=== PATIENT | female | born 1960 | race Caucasian/White ===

== ENCOUNTER 2017-10-26 08:51 | Outpatient (POV) | payer MEDICARE, MEDICAID, SELFPAY | END 2017-10-26 14:10 | disposition home or self-care (01) | PROVIDERS: Family Provider Internal Medicine Adolescent Medicine; Referring Provider Internal Medicine; Visit Provider Podiatrist | DX: M25.572 Pain in left ankle and joints of left foot (principal); M25.571 Pain in right ankle and joints of right foot; E11.42 Type 2 diabetes mellitus with diabetic polyneuropathy; B35.1 Tinea unguium; L60.0 Ingrowing nail | CPT/HCPCS: 99213; G0127; 36415; 80061; 80076 ==

== ENCOUNTER → 2018-01-12 10:12 | Outpatient (POV) | payer MEDICARE, MEDICAID, SELFPAY | PROVIDERS: Visit Provider Podiatrist | DX: Z00.00 Encounter for general adult medical examination without abnormal findings (principal) ==

== ENCOUNTER → 2018-01-26 12:55 | Outpatient (POV) | payer MEDICARE, MEDICAID, SELFPAY | PROVIDERS: Family Provider Internal Medicine Adolescent Medicine; Visit Provider Podiatrist | DX: Z00.00 Encounter for general adult medical examination without abnormal findings (principal) ==

== ENCOUNTER → 2018-03-07 11:20 | Outpatient (CLI) | payer MEDICARE, MEDICAID, SELFPAY ==
[2018-03-07 12:02] LABS: Basophils # 0.1 K/mm3 (0-0.2); Basophils % 0.5 % (0.1-2.0); Eosinophils # 0.2 K/mm3 (0.0-0.4); Eosinophils % 2.3 % (0.1-12.0); Hematocrit 41.8 % (37.0-47.0); Hemoglobin 14.1 g/dL (12.2-16.2); Lymphocytes # 3.7 K/mm3 (0.7-4.5); Lymphocytes % 34.9 K/mm3 (10-50); Mean Corpuscular HGB Conc 33.8 g/dL (31.8-35.4); Mean Corpuscular Hemoglobin 28.5 pg (27.0-31.2); Mean Corpuscular Volume 84.5 fl (81-99); Mean Platelet Volume 7.4 fl (7.4-10.4); Monocytes # 0.5 K/mm3 (0.1-1.0); Monocytes % 4.8 % (1.7-9.3); Neutrophils # 6.2 K/mm3 (1.8-7.8); Neutrophils % 57.5 % (37.0-80.0); Platelet Count 402 K/mm3 (142-424); Red Blood Count 4.94 M/mm3 (4.20-5.40); Red Cell Distribution Width 14.1 % (11.5-17.5); White Blood Count 10.7 K/mm3 (4.8-10.8)
[2018-03-07 12:18] LABS: Hemoglobin A1C 6.4 % (0.0-7.0)
[2018-03-07 12:44] LABS: Alanine Aminotransferase 32 U/L (12-78); Albumin Level 3.9 gm/dL (3.4-5.0); Alkaline Phosphatase 109 U/L (46-116); Anion Gap 18.4 mEq/L (5-15); Aspartate Amino Transferase 23 U/L (15-37); Bilirubin,Total 0.5 mg/dL (0.2-1.0); Blood Urea Nitrogen 18 mg/dL (7-18); Calcium 9.9 mg/dL (8.5-10.1); Carbon Dioxide 24 mmol/L (21.0-32.0); Chloride 103 mmol/L (98-107); Chol/HDL Ratio 4.7 (1-3.5); Cholesterol 108 mg/dL (140-200); Creatinine,Serum 0.88 mg/dL (0.55-1.02); Estimated Glomerular Filt Rate 66 ml/min (>60); Free Thyroxine Index 3.4 ug/dL (5.93-13.13); GFR (African American) 80 ML/MIN (>60); Globulin 3.9 gm/dl (1.3-3.2); Glucose 119 mg/dL (74-106); HDL Cholesterol 23 mg/dL (29-89); LDL Cholesterol 46 mg/dL (0-130); Potassium 4.4 mmoL/L (3.5-5.1); Sodium 141 mmol/L (136-145); T4 (Thyroxine) 10.6 ug/dl (4.7-13.3); Thyroid Stimulating Hormone 2.17 uIU/ml (0.358-3.740); Total Protein,Serum 7.8 gm/dL (6.4-8.2); Triglycerides 196 mg/dL (30-200); Triiodothryronine (T3) Uptake 32 % (31-39); VLDL Cholesterol 39 mg/dL (0-40)
[2018-03-08 14:49] LABS: Vitamin B12 409 pg/mL (232-1245)
== END ==
PROVIDERS: Visit Provider Internal Medicine Adolescent Medicine
DX: E11.42 Type 2 diabetes mellitus with diabetic polyneuropathy (principal)
CPT/HCPCS: 36415; 80053; 80061; 82607; 83036; 84436; 84443; 84479; 85025

== ENCOUNTER → 2018-04-05 08:33 | Outpatient (CLI) | payer MEDICARE, MEDICAID, SELFPAY ==
--- NOTE | 2018-04-05 | XR_ITS ---
XR DEXA axial skeleton HISTORY: ITS.REASON: ASYMPTOMATIC MENOPAUSE ORDERING PHYSICIAN: Rubio Diaz MD PATIENT AGE: 57 years COMPARISON: None FINDINGS: The BMD measured at the AP Spine L1-L4 is 1.010 g/cm squared with a T score of -1.4. This is considered Osteopenic according to the World Health Organization criteria. Fracture risk is Moderate. Treatment is advised. The mean density of the hips has a T score of -0.9 IMPRESSION: Osteopenia with moderate fracture risk. Recommended. Recommend follow-up exam March 2020
== END ==
PROVIDERS: Family Provider Internal Medicine Adolescent Medicine; PCP Internal Medicine Adolescent Medicine; Visit Provider Internal Medicine Adolescent Medicine
DX: Z78.0 Asymptomatic menopausal state (principal)
CPT/HCPCS: 77080

== ENCOUNTER → 2018-05-01 10:13 | Outpatient (POV) | payer MEDICARE, MEDICAID, SELFPAY ==
[2018-05-01 10:17] VITALS: BP 133/83; PULSE 84; RESP 18; O2SAT 96
--- NOTE | 2018-05-01 11:01 | HMH.PMCON ---
Assessment and Plan (1) Neuropathy Current visit: Yes Status: Chronic Category: Medical Code(s): G62.9 - Polyneuropathy, unspecified - Assessment and plan all Dx Assessment and Plan for all problems:: I gave the patient information on neuro stimulation. I believe that this will be beneficial given her diagnosis and symptomology. Patient is going to review the information. I discussed trialing and implantation process with the patient. We also discussed realistic goal setting. Patient will give us a call if she would like to proceed with this therapy. This note was dictated using voice recognition software and may contain errors or omissions HPI - Data of Consult Consult date: 05/01/18 Requesting Physician: Alyssia Nichols APRN Primary Care Provider: Rubio Diaz MD Family Provider: Rubio Diaz MD - Consult Narrative Reason for consult: Bilateral foot pain History of present illness: Ms. Sagastume is a 57 year old female presents for consultation in regards to her bilateral leg and foot pain. Patient has been diagnosed with diabetic neuropathy. Patient has tried multiple therapies such as Lyrica, gabapentin, compounding cream. Patient states she has had no relief with this. Patient states that her pain today is a 10 out of 10. Patient has been seen by Dr. Cleveland in the past and had injections however she states she got no relief from this. Patient states she has numbness and tingling in her bilateral feet. Patient states that she does do warm soaks which helps decrease the pain a little bit however any kind of walking or movement increases the pain. Patient also on clonazepam. Patient and I discussed neuro stimulation. CC: Alyssia Nichols APRN [facility] History I have reviewed the patient's past medical history: Yes Medical History: Reports:: Depression, Diabetes Mellitus Type 2, Hyperlipidemia, Hypertension Denies:: Cancer, Chronic Obstructive Pulmonary Disease (COPD), Diabetes Mellitus Type 1, MRSA Other Surgeries: Yes: Hysterectomy-Total, Other Amputation: No Fractures: No - *Social History Smoking Status: Current every day smoker Tobacco Type: cigarettes # Packs/Day (cigarettes): 1 Alcohol Intake: never Alcohol Intake Frequency:: other Occupational Status: disabled Housing: house - Psychiatric History Expresses thoughts of harming self/others: None Suicide Plan Description: No Plan Pschychiatric History:: Reports:: Depression *Family Hx:: Heart Attack, Coronary Artery Disease Review of Systems - Review of Systems ROS General: no recent weight change, no fever, no sleep disturbances Respiratory: no cough, no shortness of air, no recurring pulmonary infections Cardiovascular/Peripheral Vascular: No chest pain, No palpitations, no edema, no shortness of breath. Gastrointestinal: no incontinence, normal bowel movements reported Genitourinary: no incontinence Musculoskeletal: Bilateral foot pain Psychiatric: normal mood/ affect Neurological: [denies weakness in extremities], [denies balance issues] Meds Home Medications Medication Instructions Recorded Confirmed Type albuterol sulfate HFA 90 1 puff INHALATION Q4H g 11/27/17 04/15/18 History mcg/actuation aerosol inhaler clonazepam 0.5 mg tablet 0.5 mg PO BID tab 11/27/17 04/15/18 History duloxetine 20 mg capsule,delayed 20 mg PO QDAY cap 11/27/17 04/15/18 History release fluticasone furoate 27.5 1 spray INTRANASAL QDAY 11/27/17 04/15/18 History mcg/actuation nasal spray,suspension hydroxyzine pamoate 25 mg capsule 25 mg PO ONCE PRN cap 11/27/17 04/15/18 History metformin 500 mg tablet 500 mg PO BID 11/27/17 04/15/18 History omeprazole 20 mg capsule,delayed 20 mg PO QDAY 11/27/17 04/15/18 History release ropinirole 1 mg tablet 1 mg PO QHS tab 12/26/17 04/15/18 History gabapentin 300 mg capsule 400 mg PO TID cap 04/09/18 04/15/18 History Azithromycin [Z-Paul 250mg Tab] 250 mg PO UD DOSE PK 0
--- NOTE | 2018-05-01 11:09 | P.CONS_ITS ---
Assessment and Plan (1) Neuropathy Current visit: Yes Status: Chronic Category: Medical Code(s): G62.9 - Polyneuropathy, unspecified - Assessment and plan all Dx Assessment and Plan for all problems:: I gave the patient information on neuro stimulation. I believe that this will be beneficial given her diagnosis and symptomology. Patient is going to review the information. I discussed trialing and implantation process with the patient. We also discussed realistic goal setting. Patient will give us a call if she would like to proceed with this therapy. This note was dictated using voice recognition software and may contain errors or omissions HPI - Data of Consult Consult date: 05/01/18 Requesting Physician: Alyssia Nichols APRN Primary Care Provider: Rubio Diaz MD Family Provider: Rubio Diaz MD - Consult Narrative Reason for consult: Bilateral foot pain History of present illness: Ms. Sagastume is a 57 year old female presents for consultation in regards to her bilateral leg and foot pain. Patient has been diagnosed with diabetic neuropathy. Patient has tried multiple therapies such as Lyrica, gabapentin, compounding cream. Patient states she has had no relief with this. Patient states that her pain today is a 10 out of 10. Patient has been seen by Dr. Cleveland in the past and had injections however she states she got no relief from this. Patient states she has numbness and tingling in her bilateral feet. Patient states that she does do warm soaks which helps decrease the pain a little bit however any kind of walking or movement increases the pain. Patient also on clonazepam. Patient and I discussed neuro stimulation. CC: Alyssia Nichols APRN [facility] History I have reviewed the patient's past medical history: Yes Medical History: Reports:: Depression, Diabetes Mellitus Type 2, Hyperlipidemia , Hypertension Denies:: Cancer, Chronic Obstructive Pulmonary Disease (COPD), Diabetes Mellitus Type 1, MRSA Other Surgeries: Yes: Hysterectomy-Total, Other Amputation: No Fractures: No - *Social History Smoking Status: Current every day smoker Tobacco Type: cigarettes # Packs/Day (cigarettes): 1 Alcohol Intake: never Alcohol Intake Frequency:: other Occupational Status: disabled Housing: house - Psychiatric History Expresses thoughts of harming self/others: None Suicide Plan Description: No Plan Pschychiatric History:: Reports:: Depression *Family Hx:: Heart Attack, Coronary Artery Disease Review of Systems - Review of Systems ROS General: no recent weight change, no fever, no sleep disturbances Respiratory: no cough, no shortness of air, no recurring pulmonary infections Cardiovascular/Peripheral Vascular: No chest pain, No palpitations, no edema, no shortness of breath. Gastrointestinal: no incontinence, normal bowel movements reported Genitourinary: no incontinence Musculoskeletal: Bilateral foot pain Psychiatric: normal mood/ affect Neurological: [denies weakness in extremities], [denies balance issues] Meds Home Medications Medication Instructions Recorded Confirmed Type albuterol sulfate HFA 90 1 puff INHALATION Q4H g 11/27/17 04/15/18 History mcg/actuation aerosol inhaler clonazepam 0.5 mg tablet 0.5 mg PO BID tab 11/27/17 04/15/18 History duloxetine 20 mg capsule,delayed 20 mg PO QDAY cap 11/27/17 04/15/18 History release fluticasone furoate 27.5 1 spray INTRANASAL QDAY 11/27/17 04/15/18 Histo
== END ==
PROVIDERS: Family Provider Internal Medicine Adolescent Medicine; PCP Internal Medicine Adolescent Medicine; Visit Provider Clinical Nurse Specialist Family Health
DX: G62.9 Polyneuropathy, unspecified (principal)
CPT/HCPCS: 99202

== ENCOUNTER → 2018-08-20 09:49 | Outpatient (CLI) | payer MEDICARE, MEDICAID, SELFPAY ==
[2018-08-20 10:21] LABS: Basophils # 0.1 K/mm3 (0-0.2); Basophils % 0.8 % (0.1-2.0); Eosinophils # 0.3 K/mm3 (0.0-0.4); Eosinophils % 2.7 % (0.1-12.0); Hematocrit 39.8 % (37.0-47.0); Hemoglobin 13.1 g/dL (12.2-16.2); Lymphocytes # 4.2 K/mm3 (0.7-4.5); Lymphocytes % 38.7 K/mm3 (10-50); Mean Corpuscular HGB Conc 32.9 g/dL (31.8-35.4); Mean Corpuscular Hemoglobin 27.3 pg (27.0-31.2); Mean Platelet Volume 6.8 fl (7.4-10.4); Monocytes # 0.4 K/mm3 (0.1-1.0); Monocytes % 3.8 % (1.7-9.3); Neutrophils # 5.8 K/mm3 (1.8-7.8); Platelet Count 370 K/mm3 (142-424); Red Cell Distribution Width 15.3 % (11.5-17.5); White Blood Count 10.8 K/mm3 (4.8-10.8)
[2018-08-20 10:27] LABS: Hemoglobin A1C 6.3 % (0.0-7.0)
[2018-08-20 11:37] LABS: Alanine Aminotransferase 51 U/L (12-78); Albumin Level 3.2 gm/dL (3.4-5.0); Albumin/Globulin Ratio 0.9 (1.1-1.8); Alkaline Phosphatase 115 U/L (46-116); Anion Gap 12.6 mEq/L (5-15); Aspartate Amino Transferase 26 U/L (15-37); Bilirubin,Total 0.4 mg/dL (0.2-1.0); Blood Urea Nitrogen 13 mg/dL (7-18); Calcium 9.1 mg/dL (8.5-10.1); Carbon Dioxide 28 mmol/L (21.0-32.0); Chloride 102 mmol/L (98-107); Chol/HDL Ratio 4.1 (1-3.5); Cholesterol 136 mg/dL (140-200); Creatinine,Serum 0.88 mg/dL (0.55-1.02); Estimated Glomerular Filt Rate 66 ml/min (>60); Free Thyroxine Index 2.8 ug/dL (5.93-13.13); GFR (African American) 80 ML/MIN (>60); Globulin 3.6 gm/dl (1.3-3.2); Glucose 93 mg/dL (74-106); HDL Cholesterol 33 mg/dL (29-89); LDL Cholesterol 49 mg/dL (0-130); Potassium 4.6 mmoL/L (3.5-5.1); Sodium 138 mmol/L (136-145); T4 (Thyroxine) 7.9 ug/dl (4.7-13.3); Thyroid Stimulating Hormone 2.63 uIU/ml (0.358-3.740); Total Protein,Serum 6.8 gm/dL (6.4-8.2); Triglycerides 270 mg/dL (30-200); Triiodothryronine (T3) Uptake 35 % (31-39); VLDL Cholesterol 54 mg/dL (0-40)
[2018-08-21 08:52] LABS: Vitamin D 25 Hydroxy 19.2 ng/mL (30.0-100.0)
[2018-08-22 13:07] LABS: Vitamin B12 335 pg/mL (232-1245)
== END ==
PROVIDERS: PCP Internal Medicine Adolescent Medicine; Visit Provider Internal Medicine Adolescent Medicine
DX: E11.42 Type 2 diabetes mellitus with diabetic polyneuropathy (principal); E11.9 Type 2 diabetes mellitus without complications
CPT/HCPCS: 36415; 80053; 80061; 82607; 82652; 83036; 84436; 84443; 84479; 85025

== ENCOUNTER → 2018-09-07 08:43 | Outpatient (CLI) | payer MEDICARE, MEDICAID, SELFPAY ==
--- NOTE | 2018-09-07 08:48 | MM_ITS ---
MM Dig screening mamm BI w/CAD CAD Screening COMPARISON: Digital mammograms with CAD 07/25/2016 and 09/05/2017 INDICATION: There is no personal or family history of breast cancer. This been previous biopsy right breast for benign disease. TECHNIQUE: Standard CC and MLO images were obtained. R2 CAD reviewed. FINDINGS: Moderate scattered fibroglandular densities are seen throughout both breasts. There is a stable benign-appearing nodular density upper outer quadrant left breast. This was shown to be secondary to a cyst on ultrasound performed 09/22/2017. There is a small smoothly marginated benign-appearing density right breast which was seen previously. There are couple of benign-appearing calcifications in each breast. There are 2 biopsy clips right breast. There is no suspicious lesion and no suspicious microcalcifications. IMPRESSION: Stable exam with moderate diffuse breast density no suspicious lesion seen BI-RADS Category: 2 Benign Finding(s) RECOMMENDED FOLLOW-UP: 1YR - 1 YEAR FOLLOW-UP (A letter has been sent to the patient regarding results of the study.)
== END ==
PROVIDERS: PCP Internal Medicine Adolescent Medicine; Visit Provider Internal Medicine Adolescent Medicine
DX: Z12.31 Encounter for screening mammogram for malignant neoplasm of breast (principal)
CPT/HCPCS: 77067

== ENCOUNTER → 2018-10-20 10:28 | Outpatient (CLI) | payer MEDICARE, MEDICAID, SELFPAY ==
[2018-10-20 11:05] LABS: Basophils # 0.1 K/mm3 (0-0.2); Basophils % 0.6 % (0.1-2.0); Eosinophils # 0.2 K/mm3 (0.0-0.4); Eosinophils % 2.3 % (0.1-12.0); Hematocrit 41.1 % (37.0-47.0); Lymphocytes # 3.7 K/mm3 (0.7-4.5); Lymphocytes % 43.7 % (10-50); Mean Corpuscular HGB Conc 31.6 g/dL (31.8-35.4); Mean Corpuscular Hemoglobin 27.1 pg (27.0-31.2); Mean Corpuscular Volume 85.8 fl (81-99); Monocytes # 0.4 K/mm3 (0.1-1.0); Monocytes % 5.1 % (1.7-9.3); Neutrophils # 4.1 K/mm3 (1.8-7.8); Neutrophils % 48.3 % (37.0-80.0); Platelet Count 351 K/mm3 (142-424); Red Blood Count 4.79 M/mm3 (4.20-5.40); White Blood Count 8.5 K/mm3 (4.8-10.8)
[2018-10-20 12:43] LABS: Alanine Aminotransferase 19 U/L (12-78); Albumin Level 3.5 gm/dL (3.4-5.0); Albumin/Globulin Ratio 0.9 (1.1-1.8); Alkaline Phosphatase 119 U/L (46-116); Anion Gap 14.5 mEq/L (5-15); Aspartate Amino Transferase 9 U/L (15-37); Bilirubin,Total 0.7 mg/dL (0.2-1.0); Blood Urea Nitrogen 17 mg/dL (7-18); Calcium 9.2 mg/dL (8.5-10.1); Carbon Dioxide 27 mmol/L (21.0-32.0); Chloride 101 mmol/L (98-107); Creatinine,Serum 1.04 mg/dL (0.55-1.02); Estimated Glomerular Filt Rate 54 ml/min (>60); GFR (African American) 65 ML/MIN (>60); Globulin 3.7 gm/dl (1.3-3.2); Glucose 99 mg/dL (74-106); Potassium 4.5 mmoL/L (3.5-5.1); Sodium 138 mmol/L (136-145); Thyroid Stimulating Hormone 3.23 uIU/ml (0.358-3.740); Total Protein,Serum 7.2 gm/dL (6.4-8.2)
[2018-10-20 15:21] LABS: Hemoglobin A1C 6.2 % (0.0-7.0)
[2018-10-22 06:31] LABS: Vitamin B12 430 pg/mL (232-1245)
== END ==
PROVIDERS: Visit Provider Internal Medicine Adolescent Medicine
DX: E11.42 Type 2 diabetes mellitus with diabetic polyneuropathy; Z79.84 Long term (current) use of oral hypoglycemic drugs
CPT/HCPCS: 36415; 80053; 82607; 83036; 84443; 85025

== ENCOUNTER → 2018-12-06 09:01 | Outpatient (CLI) | payer MEDICARE, MEDICAID, SELFPAY ==
--- NOTE | 2018-12-06 09:07 | XR_ITS ---
XR foot wt bearing LT 3V HISTORY: ITS.REASON: pain, arthritis ORDERING PHYSICIAN: Paulina Blanchard DPM PATIENT AGE: 58 years COMPARISON: None FINDINGS: No fracture or dislocation. No lytic or blastic change. There is normal mineralization.. The joint spaces are well-preserved. No significant degenerative/arthritic changes. No erosive changes evident. Minimal hallux valgus noted IMPRESSION: Minimal hallux valgus otherwise negative
== END ==
PROVIDERS: PCP Internal Medicine Adolescent Medicine; Visit Provider Podiatrist
DX: M79.672 Pain in left foot (principal)
CPT/HCPCS: 73630

== ENCOUNTER → 2019-04-19 10:59 | Outpatient (CLI) | payer MEDICARE, MEDICAID, SELFPAY ==
[2019-04-19 11:37] LABS: Basophils # 0.1 K/mm3 (0-0.2); Basophils % 0.8 % (0.1-2.0); Eosinophils # 0.2 K/mm3 (0.0-0.4); Eosinophils % 1.9 % (0.1-12.0); Hematocrit 38.5 % (37.0-47.0); Hemoglobin 12.3 g/dL (12.2-16.2); Lymphocytes # 3.1 K/mm3 (0.7-4.5); Lymphocytes % 37.8 % (10-50); Mean Corpuscular HGB Conc 31.9 g/dL (31.8-35.4); Mean Corpuscular Hemoglobin 25.7 pg (27.0-31.2); Mean Corpuscular Volume 80.6 fl (81-99); Monocytes # 0.5 K/mm3 (0.1-1.0); Neutrophils # 4.4 K/mm3 (1.8-7.8); Neutrophils % 53.5 % (37.0-80.0); Platelet Count 343 K/mm3 (142-424); Red Blood Count 4.78 M/mm3 (4.20-5.40); Red Cell Distribution Width 14.4 % (11.5-17.5); White Blood Count 8.3 K/mm3 (4.8-10.8)
[2019-04-19 12:39] LABS: Hemoglobin A1C 5.6 % (0.0-7.0)
[2019-04-19 15:02] LABS: Alanine Aminotransferase 19 U/L (12-78); Albumin Level 3.5 gm/dL (3.4-5.0); Albumin/Globulin Ratio 1.1 (1.1-1.8); Alkaline Phosphatase 84 U/L (46-116); Anion Gap 14.3 mEq/L (5-15); Aspartate Amino Transferase 12 U/L (15-37); Bilirubin,Total 0.6 mg/dL (0.2-1.0); Blood Urea Nitrogen 13 mg/dL (7-18); Carbon Dioxide 26 mmol/L (21.0-32.0); Chloride 102 mmol/L (98-107); Chol/HDL Ratio 4.8 (1-3.5); Cholesterol 100 mg/dL (140-200); Creatinine,Serum 0.88 mg/dL (0.55-1.02); Estimated Glomerular Filt Rate 66 ml/min (>60); Free Thyroxine Index 2.8 ug/dL (5.93-13.13); GFR (African American) 79 ML/MIN (>60); Globulin 3.3 gm/dl (1.3-3.2); Glucose 91 mg/dL (74-106); HDL Cholesterol 21 mg/dL (29-89); LDL Cholesterol 52 mg/dL (0-130); Potassium 4.3 mmoL/L (3.5-5.1); Sodium 138 mmol/L (136-145); Total Protein,Serum 6.8 gm/dL (6.4-8.2); Triglycerides 133 mg/dL (30-200); Triiodothryronine (T3) Uptake 31 % (31-39); VLDL Cholesterol 27 mg/dL (0-40)
[2019-04-20 18:03] LABS: Vitamin B12 309 pg/mL (232-1245)
[2019-04-20 18:04] LABS: Vitamin D 25 Hydroxy 22.7 ng/mL (30.0-100.0)
== END ==
PROVIDERS: Visit Provider Internal Medicine Adolescent Medicine
DX: E11.42 Type 2 diabetes mellitus with diabetic polyneuropathy (principal); Z79.84 Long term (current) use of oral hypoglycemic drugs
CPT/HCPCS: 36415; 80053; 80061; 82607; 82652; 83036; 84436; 84443; 84479; 85025

== ENCOUNTER → 2019-09-24 11:29 | Outpatient (CLI) | payer MEDICARE, MEDICAID, SELFPAY ==
[2019-09-24 11:56] LABS: Basophils # 0.1 K/mm3 (0-0.2); Eosinophils # 0.4 K/mm3 (0.0-0.4); Eosinophils % 4.4 % (0.1-12.0); Hemoglobin 13.9 g/dL (12.2-16.2); Lymphocytes # 4.3 K/mm3 (0.7-4.5); Lymphocytes % 46.1 % (10-50); Mean Corpuscular HGB Conc 32.4 g/dL (31.8-35.4); Mean Corpuscular Volume 86.3 fl (81-99); Mean Platelet Volume 7.6 fl (7.4-10.4); Monocytes # 0.6 K/mm3 (0.1-1.0); Monocytes % 5.9 % (1.7-9.3); Neutrophils % 42.7 % (37.0-80.0); Platelet Count 347 K/mm3 (142-424); Red Blood Count 4.98 M/mm3 (4.20-5.40); Red Cell Distribution Width 14.5 % (11.5-17.5); White Blood Count 9.3 K/mm3 (4.8-10.8)
[2019-09-24 16:02] LABS: Alanine Aminotransferase 16 U/L (12-78); Albumin Level 3.5 gm/dL (3.4-5.0); Albumin/Globulin Ratio 1.1 (1.1-1.8); Alkaline Phosphatase 99 U/L (46-116); Anion Gap 11.8 mEq/L (5-15); Aspartate Amino Transferase 13 U/L (15-37); Bilirubin,Total 0.2 mg/dL (0.2-1.0); Blood Urea Nitrogen 17 mg/dL (7-18); Calcium 8.6 mg/dL (8.5-10.1); Carbon Dioxide 28 mmol/L (21.0-32.0); Chloride 106 mmol/L (98-107); Creatinine,Serum 0.76 mg/dL (0.55-1.02); Estimated Glomerular Filt Rate 77 ml/min (>60); GFR (African American) 94 ML/MIN (>60); Globulin 3.3 gm/dl (1.3-3.2); Glucose 89 mg/dL (74-106); Potassium 4.8 mmoL/L (3.5-5.1); Sodium 141 mmol/L (136-145); Total Protein,Serum 6.8 gm/dL (6.4-8.2)
[2019-09-24 18:15] LABS: Hemoglobin A1C 5.7 % (0.0-7.0)
== END ==
PROVIDERS: Visit Provider Internal Medicine Adolescent Medicine
DX: R55 Syncope and collapse (principal); E11.9 Type 2 diabetes mellitus without complications; Z79.84 Long term (current) use of oral hypoglycemic drugs
CPT/HCPCS: 36415; 80053; 83036; 85025

== ENCOUNTER → 2020-06-08 14:48 | Outpatient (CLI) | payer MEDICARE, MEDICAID, SELFPAY ==
[2020-06-08 15:11] LABS: Basophils # 0.1 K/mm3 (0-0.2); Basophils % 0.9 % (0.1-2.0); Eosinophils # 0.2 K/mm3 (0.0-0.4); Eosinophils % 2.3 % (0.1-12.0); Hematocrit 44.7 % (37.0-47.0); Hemoglobin 15.4 g/dL (12.2-16.2); Lymphocytes # 3.7 K/mm3 (0.7-4.5); Lymphocytes % 38.7 % (10-50); Mean Corpuscular HGB Conc 34.4 g/dL (31.8-35.4); Mean Corpuscular Hemoglobin 28.8 pg (27.0-31.2); Mean Corpuscular Volume 83.7 fl (81-99); Mean Platelet Volume 7.6 fl (7.4-10.4); Monocytes # 0.4 K/mm3 (0.1-1.0); Monocytes % 3.7 % (1.7-9.3); Neutrophils # 5.2 K/mm3 (1.8-7.8); Neutrophils % 54.4 % (37.0-80.0); Platelet Count 288 K/mm3 (142-424); Red Blood Count 5.34 M/mm3 (4.20-5.40); Red Cell Distribution Width 14.1 % (11.5-17.5); White Blood Count 9.5 K/mm3 (4.8-10.8)
[2020-06-08 16:16] LABS: Alanine Aminotransferase 13 U/L (12-78); Albumin Level 4.4 g/dl (3.5-5.0); Albumin/Globulin Ratio 1.6 (1.1-1.8); Alkaline Phosphatase 126 U/L (38-126); Anion Gap 16.1 mEq/L (5-15); Aspartate Amino Transferase 20 U/L (14-36); Bilirubin,Total 0.8 mg/dl (0.2-1.3); Blood Urea Nitrogen 15 mg/dl (7-17); Calcium 9.6 mg/dl (8.4-10.2); Carbon Dioxide 23 mmol/L (22.0-30.0); Chloride 103 mmol/L (98-107); Cholesterol 147 mg/dl (140-200); Estimated Glomerular Filt Rate 85 ml/min (>60); GFR (African American) 103 ML/MIN (>60); Globulin 2.8 g/dL (1.3-3.2); Glucose 96 mg/dl (74-100); HDL Cholesterol 37 mg/dl (40-60); Potassium 4.1 mmoL/L (3.5-5.1); Sodium 138 mmol/L (136-145); Total Protein,Serum 7.2 g/dl (6.3-8.2); Triglycerides 199 mg/dl (30-150); VLDL Cholesterol 40 mg/dL (0-40)
[2020-06-08 16:28] LABS: Direct LDL Cholesterol 77.58 mg/dL (100-129)
[2020-06-08 17:04] LABS: Hemoglobin A1C 6.1 % (4.0-6.0)
[2020-06-11 08:56] LABS: Vitamin B12 339 pg/mL (232-1245)
== END ==
PROVIDERS: Visit Provider Nurse Practitioner Family
DX: E11.40 Type 2 diabetes mellitus with diabetic neuropathy, unspecified (principal); I10 Essential (primary) hypertension; E55.9 Vitamin D deficiency, unspecified; G89.4 Chronic pain syndrome
CPT/HCPCS: 36415; 80053; 80061; 82306; 82607; 83036; 84443; 85025

== ENCOUNTER → 2020-07-10 09:47 | Outpatient (CLI) | payer MEDICARE, MEDICAID, SELFPAY ==
--- NOTE | 2020-07-10 09:51 | MM_ITS ---
PROCEDURE: MM DIG SCREENING MAMM BI W/CAD Digital Breast Tomosynthesis Included CLINICAL INDICATION: SCREENING There is no personal or family history of breast cancer. There has been a previous biopsy right breast for benign disease. COMPARISON: MG DMSB DIG MAMM-SCREEN [place] from 07/25/2016 MG DMSB DIG MAMM-SCREEN [place] W/CAD from 09/05/2017 MG DMDBAV DIG MAMM-DX [place] W/AVWS W/CAD from 09/22/2017 MG SCBI MM Dig screening mamm BI w/CAD from 09/07/2018 TECHNIQUE: Standard CC and MLO images and 3D Tomosynthesis was obtained. R2 CAD reviewed. FINDINGS: Moderate somewhat heterogenic fibroglandular densities are seen the central portions of both breasts. There are 2 biopsy clips right breast. There are couple of benign-appearing calcifications left breast. There is a small benign-appearing nodular density lower central portion right breast. This is stable and unchanged from the previous exam. There is no new or suspicious lesion in either breast and no suspicious microcalcifications. IMPRESSION: Moderately dense parenchymal pattern with no suspicious lesions seen BI-RAD Category: 2 Benign Finding(s) FOLLOW-UP: 1YR 1 Year Follow-up (A letter has been sent to the patient regarding results of the study.) Dictated by: Dr. Casimiro Parsons MD 07/10/2020 12:05 Dr. Casimiro Parsons MD in [place] 07/10/2020 12:05
== END ==
PROVIDERS: PCP Internal Medicine Adolescent Medicine; Visit Provider Internal Medicine Adolescent Medicine
DX: Z12.31 Encounter for screening mammogram for malignant neoplasm of breast (principal)
CPT/HCPCS: 77063; 77067

== ENCOUNTER 2020-07-13 13:01 | Emergency (ER) | payer MEDICARE, MEDICAID, SELFPAY ==
[2020-07-13 13:30] VITALS: BP 155/75; PULSE 84; RESP 20; O2SAT 95; BMI 33.3
--- NOTE | 2020-07-13 13:38 | HMH.EDUTC ---
[facility] [place] Clinical Impression: Strep throat Disposition: Home, Self-Care Condition on Discharge: Good Instructions: Strep Throat, DI for Strep Throat Additional Instructions: Drink plenty of fluids. Take tylenol or ibuprofen for pain or fever. Take the medications as directed. Follow up with your regular doctor. GO TO THE ER FOR ANY WORSENING SYMPTOMS Throw your tooth brush away and get a new one. Prescriptions: Ondansetron [Zofran 4mg ODT] 4 mg PO Q8HP PRN #9 tab.rapdis PRN Reason: Nausea Transmission Status: Received by [facility] predniSONE [Deltasone 10mg tablet] 10 mg PO DAILY 9 Days #21 tab Transmission Status: Received by [facility] Azithromycin [Z-Paul 250mg Tab*] 250 mg PO UD DOSE PK #6 tab Transmission Status: Received by [facility] Referrals: Rubio Diaz MD [Primary Care Provider] - Time of Disposition: 13:40 Medical Decision Making - Medical Records Medical records reviewed: No: I reviewed the patient's medical records. - Nader Inquiry Pt receiving controlled substance: No Vital Signs: 07/13/20 13:30 07/13/20 13:46 Temperature 98.2 F Pulse Rate 84 Pulse Rate [Right Brachial] 84 Respiratory Rate 20 20 Blood Pressure 155/75 H Blood Pressure [Right Arm] 155/75 H Blood Pressure Mean [Right Arm] 101 Blood Pressure Source [Right Arm] Automatic Cuff Blood Pressure Position [Right Arm] Sitting 02 Sat by Pulse Oximetry 95 Oxygen Delivery Method Room Air - Lab Data Lab results reviewed: Yes: I reviewed the patient's lab results. Lab Results 07/13/20 13:22: Influenza Type A Ag Negative, Influenza Type B Ag Negative 07/13/20 13:22: Strep Scn Rapid Clinic Positive [facility] [place] HPI - General Stated complaint: sore throat acevedo,cg Time Seen by Provider: 07/13/20 13:30 Mode of Arrival: Ambulatory Source of Information: Patient Limitations: No Limitations Description of Symptoms (Recalled from Triage Doc. by RN): PATIENT C/O SORE THROAT, PRODUCTIVE COUGH, RIB PAIN, AND HEADACHE SINCE MONDAY NIGHT HEENT Symptoms (Recalled from RN notes): Yes Resp Symptoms (Recalled from RN notes): Yes Skin Symptoms (Recalled from RN notes): No MS Symptoms (Recalled from RN notes): No Functional Status (Recalled from RN notes): WNL - History of Present Illness Provider Complaint: She states that her symptoms began 3 days ago. - Related Data Home Medications Medication Instructions Recorded Confirmed albuterol sulfate 90 mcg/actuation 1 puff INHALATION Q4H g 11/27/17 06/17/20 aerosol inhaler clonazepam 0.5 mg tablet 0.5 mg PO BID tab 11/27/17 06/17/20 fluticasone furoate 27.5 1 spray INTRANASAL QDAY 11/27/17 06/17/20 mcg/actuation nasal spray,suspension celecoxib 100 mg capsule 100 mg PO BID 09/26/19 06/17/20 amitriptyline 25 mg tablet 50 mg PO QHS tab 06/17/20 06/17/20 duloxetine 20 mg capsule,delayed 90 mg PO QDAY cap 06/17/20 06/17/20 release gabapentin 400 mg capsule 600 mg PO TID cap 06/17/20 06/17/20 Previous Rx's Medication Instructions Recorded atorvastatin 10 mg tablet 10 mg PO QDAY #30 tab 12/18/18 bisoprolol fumarate 5 mg tablet 5 mg PO QDAY #30 tab 12/24/19 ciclopirox 8 % topical solution 1 applic TOPICAL DAILY 90 Days 06/17/20 #6.6 ml Azithromycin [Z-Paul 250mg Tab*] 250 mg PO UD DOSE PK #6 tab 07/13/20 Ondansetron [Zofran 4mg ODT] 4 mg PO Q8HP PRN #9 tab.rapdis 07/13/20 predniSONE [Deltasone 10mg tablet] 10 mg PO DAILY 9 Days #21 tab 07/13/20 Allergies Allergy/AdvReac Type Severity Reaction Status Date / Time amoxicillin Allergy Intermediate I-RASH Verified 06/17/20 11:01 Penicillins [PENICILLINS] Allergy Unknown Verified 06/17/20 11:01 - Worker's Comp Is this a Worker's Comp case?: No [facility] History - Hepatitis A Screen Drug use history?: No High risk sexual behaviors?: No History of sexually transmitted infection?: No Currently employed?: No Childcare worker?: No Do you have
[2020-07-13 13:40] LABS: UTC Influenza A Antigen Negative (Negative); UTC Influenza B Antigen Negative (Negative); UTC Strep Screen (Rapid) Positive (Negative)
[2020-07-13 13:46] VITALS: BP 155/75; PULSE 84; RESP 20; TEMP 36.8; O2SAT 95
== END 2020-07-13 13:50 | disposition home or self-care (01) ==
PROVIDERS: Emergency Provider Nurse Practitioner Family; PCP Internal Medicine Adolescent Medicine
DX: J02.0 Streptococcal pharyngitis (principal); F41.8 Other specified anxiety disorders; J44.9 Chronic obstructive pulmonary disease, unspecified; E78.5 Hyperlipidemia, unspecified; I10 Essential (primary) hypertension; Z87.891 Personal history of nicotine dependence; E11.9 Type 2 diabetes mellitus without complications; Z88.0 Allergy status to penicillin
CPT/HCPCS: G0463; 87804; 87880; 99202

== ENCOUNTER → 2020-07-14 13:00 | Outpatient (POV) | payer MEDICARE, MEDICAID, SELFPAY | PROVIDERS: Visit Provider Dermatology | DX: Z00.00 Encounter for general adult medical examination without abnormal findings (principal) ==

== ENCOUNTER → 2020-08-04 10:42 | Outpatient (POV) | payer MEDICARE, MEDICAID, SELFPAY | PROVIDERS: Visit Provider Dermatology | DX: Z00.00 Encounter for general adult medical examination without abnormal findings (principal) ==

== ENCOUNTER 2020-09-14 13:37 | Emergency (ER) | payer MEDICARE, MEDICAID, SELFPAY ==
[2020-09-14 14:04] VITALS: BP 143/76; PULSE 78; RESP 20; TEMP 36.8; O2SAT 95; BMI 26.6
--- NOTE | 2020-09-14 14:09 | HMH.EDUTC ---
[facility] [place] Clinical Impression: Encounter for laboratory testing for COVID-19 virus Disposition: Home, Self-Care Condition on Discharge: Good Instructions: Preventing the Spread of Coronavirus Discharge Instructions Additional Instructions: *Monitor Temp, Over the counter Motrin or Tylenol as directed/as needed Tylenol every 4 hours and Motrin every 6 hours (as long as your family doctor has told you that you can take it) for fever or pain. and straight to ER if unable to lower temp less than 101.0 after medication given *Warm salt water gargles may help to soothe the throat *Throat Lozenges *Warm fluids like tea with honey may help to soothe the throat *Sleep elevated *Humidifier/Vaporizer Your throat swab was sent for culture. Those results are typically sent to your primary care. Be sure to follow up in 2-3 days with your family doctor/primary care physician if no improvement so they can review those result and treat if necessary. If you don?t have a primary care doctor, I recommend you get one but in the mean time, you will have to return to a walk in clinic Follow up IMMEDIATELY for new or worsening symptoms or no Noticeable improvement over the next 48-72 hours. 911 for difficulty breathing or swallowing You was tested for today for COVID19 your test result should be back later this evening, you may call back later this evening to see if your test results are back and the result [phone] You was given a handout with instructions for Self Quarantine and Self isolation for while you wait on test results and what to do if they are positive Referrals: Rubio Diaz MD [Primary Care Provider] - As needed Time of Disposition: 14:23 Medical Decision Making - Nader Inquiry Pt receiving controlled substance: No Nader was queried for this patient: No Vital Signs: 09/14/20 14:04 Temperature 98.3 F Temperature Source Oral Pulse Rate [Right Brachial] 78 Respiratory Rate 20 Blood Pressure [Right Arm] 143/76 H Blood Pressure Mean [Right Arm] 98 Blood Pressure Source [Right Arm] Automatic Cuff Blood Pressure Position [Right Arm] Sitting 02 Sat by Pulse Oximetry 95 Oxygen Delivery Method Room Air Orders (Tests/Meds): ORDERS Category Date Time Status Covid-19 Nasal PCR ([facility]) Routine Lab 09/14/20 14:01 Ordered [facility] [place] - General Stated complaint: covid test Time Seen by Provider: 09/14/20 14:09 Mode of Arrival: Ambulatory Source of Information: Patient Limitations: No Limitations Description of Symptoms (Recalled from Triage Doc. by RN): PATIENT C/O COUGH, HEADACHE AND BODY ACHES; REQUESTING COVID TEST HEENT Symptoms (Recalled from RN notes): Yes Resp Symptoms (Recalled from RN notes): Yes Skin Symptoms (Recalled from RN notes): No MS Symptoms (Recalled from RN notes): Yes Functional Status (Recalled from RN notes): WNL - History of Present Illness Provider Complaint: Patient states that over the last few days she had a dry cough, body aches and chills and wanted to get tested for COVID States that she is suppose to see her PCP after she leaves the [facility] for an appointment she had scheduled but wanted to stop in here first to get checked for COVID - Related Data Home Medications Medication Instructions Recorded Confirmed albuterol sulfate 90 mcg/actuation 1 puff INHALATION Q4H g 11/27/17 06/17/20 aerosol inhaler clonazepam 0.5 mg tablet 0.5 mg PO BID tab 11/27/17 06/17/20 fluticasone furoate 27.5 1 spray INTRANASAL QDAY 11/27/17 06/17/20 mcg/actuation nasal spray,suspension celecoxib 100 mg capsule 100 mg PO BID 09/26/19 06/17/20 amitriptyline 25 mg tablet 50 mg PO QHS tab 06/17/20 06/17/20 duloxetine 20 mg capsule,delayed 90 mg PO QDAY cap 06/17/20 06/17/20 release gabapentin 400 mg capsule 600 mg PO TID cap 06/17/20 06/17/20 Previous Rx's Medication Instructions Recorded atorvastatin 10 mg tablet 10 mg PO QDAY #30 tab 12/18/18 bisoprolol fumarate 5 mg tablet
[2020-09-14 14:30] VITALS: BP 143/76; PULSE 78; RESP 20; TEMP 36.8; O2SAT 95
[2020-09-14 19:16] LABS: UTC Strep Screen (Rapid) Negative (Negative)
[2020-09-14 19:17] LABS: UTC Influenza A Antigen Negative (Negative); UTC Influenza B Antigen Negative (Negative)
== END 2020-09-14 14:33 | disposition home or self-care (01) ==
PROVIDERS: Emergency Provider Nurse Practitioner; PCP Internal Medicine Adolescent Medicine
DX: Z20.828 Contact with and (suspected) exposure to other viral communicable diseases (principal)
CPT/HCPCS: 87804; 87880; 99202; U0003

== ENCOUNTER → 2020-10-02 10:35 | Outpatient (CLI) | payer MEDICARE, MEDICAID, SELFPAY ==
--- NOTE | 2020-10-02 11:33 | PC.NURSE ---
Spirometry Pre and Post completed without complications. Albuterol 0.083% given via hand held nebulizer per protocol. Pt tolerated well
--- NOTE | 2020-10-02 11:41 | CT_ITS ---
PROCEDURE: CT LUNG SCREENING CLINICAL INDICATION: hx of nicotine dependence, Former smoker 25.5 pack year smoking history COMPARISON: CT [facility] CT CHEST W/O CONTRAST from 05/14/2014 TECHNIQUE: The exam was performed on a GE Light Speed [address] scanner using 2.90 mGy CTDI. A low dose helical CT CHEST was performed on a multi-detector scanner. All CT scans at the facility use one or more dose reduction, viz: automated exposure control, ma/kV adjustment per patient size (including targeted exams where dose is matched to indication, i.e. head), or iterative reconstruction technique. The LDCT was performed in a facility that meets the criteria for the screening program. Data regarding this exam was submitted to ACR which is an approved registry. The order for this exam indicates that it came as a result of a lung cancer screening counseling shard decision-making visit that included all the elements required of such a visit including smoking cessation. The radiologist interpreting this exam meets the CMS criteria for the LDCT lung cancer screening program. The exam is reported using the Lung-RADS classification scale and reported to the ACR registry. NOTE: This study was performed for the specific purposes of lung cancer screening and is not an alternative to diagnostic chest CT. RADIATION DOSE: CTDI vol(CT dose Index-volume) = 2.90mG DLP (Dose Length Product) = 103.16 mGcm FINDINGS: No suspicious pulmonary nodules. There is some scarring in the lingula. OTHER FINDINGS: There are coronary artery calcifications. Scattered small nodes are present in the axilla there is mild upper thoracic curvature convex left. Mild midthoracic curvature convex right. IMPRESSION: Lung-RADS Category 1 Negative Follow-up: Continue annual screening with LDCT in 12 months Dictated by: Amrik Spaulding MD 10/09/2020 13:55 Amrik Spaulding MD in [place] 10/09/2020 13:55
== END ==
PROVIDERS: PCP Family Medicine; Visit Provider Family Medicine
DX: Z87.891 Personal history of nicotine dependence (principal); Z12.2 Encounter for screening for malignant neoplasm of respiratory organs; R05 Cough
CPT/HCPCS: 94060

== ENCOUNTER → 2020-10-13 11:09 | Outpatient (POV) | payer MEDICARE, MEDICAID, SELFPAY | PROVIDERS: Visit Provider Dermatology | DX: Z00.00 Encounter for general adult medical examination without abnormal findings (principal) ==

== ENCOUNTER → 2020-12-14 10:36 | Outpatient (CLI) | payer MEDICARE, MEDICAID, SELFPAY ==
[2020-12-14 11:01] LABS: Basophils # 0.1 K/mm3 (0-0.2); Basophils % 0.8 % (0.1-2.0); Eosinophils # 0.2 K/mm3 (0.0-0.4); Hematocrit 42.3 % (37.0-47.0); Hemoglobin 13.7 g/dL (12.2-16.2); Lymphocytes # 2.6 K/mm3 (0.7-4.5); Lymphocytes % 34.3 % (10-50); Mean Corpuscular HGB Conc 32.4 g/dL (31.8-35.4); Mean Corpuscular Hemoglobin 27.6 pg (27.0-31.2); Mean Corpuscular Volume 85.3 fl (81-99); Mean Platelet Volume 7.1 fl (7.4-10.4); Monocytes # 0.5 K/mm3 (0.1-1.0); Monocytes % 6.7 % (1.7-9.3); Neutrophils # 4.1 K/mm3 (1.8-7.8); Neutrophils % 55.2 % (37.0-80.0); Platelet Count 291 K/mm3 (142-424); Red Blood Count 4.97 M/mm3 (4.20-5.40); Red Cell Distribution Width 13.9 % (11.5-17.5); White Blood Count 7.5 K/mm3 (4.8-10.8)
[2020-12-14 11:23] LABS: Alanine Aminotransferase 17 U/L (12-78); Albumin Level 4.3 g/dl (3.5-5.0); Albumin/Globulin Ratio 1.4 (1.1-1.8); Alkaline Phosphatase 95 U/L (38-126); Aspartate Amino Transferase 24 U/L (14-36); Bilirubin,Total 0.6 mg/dl (0.2-1.3); Blood Urea Nitrogen 17 mg/dl (7-17); Calcium 9.7 mg/dl (8.4-10.2); Carbon Dioxide 30 mmol/L (22.0-30.0); Chloride 102 mmol/L (98-107); Cholesterol 171 mg/dl (140-200); Estimated Glomerular Filt Rate 73 ml/min (>60); GFR (African American) 88 ML/MIN (>60); Glucose 146 mg/dl (74-100); HDL Cholesterol 34 mg/dl (40-60); Sodium 139 mmol/L (136-145); Total Protein,Serum 7.3 g/dl (6.3-8.2); Triglycerides 311 mg/dl (30-150); VLDL Cholesterol 62 mg/dL (0-40)
[2020-12-14 11:34] LABS: Direct LDL Cholesterol 87.95 mg/dL (100-129)
[2020-12-14 11:40] LABS: Free Thyroxine Index 2.6 ug/dL (5.93-13.13); T4 (Thyroxine) 9.1 ug/dl (5.53-11.0); Triiodothryronine (T3) Uptake 29 % (23.5-40.5)
[2020-12-14 11:53] LABS: Thyroid Stimulating Hormone 1.26 uIU/mL (0.465-4.68)
[2020-12-14 12:30] LABS: Folate 8.61 ng/mL
[2020-12-15 17:12] LABS: Albumin 3.7 g/dL (2.9-4.4); Alpha-1-Globulin 0.2 g/dL (0.0-0.4); Alpha-2-Globulin 0.8 g/dL (0.4-1.0); Gamma Globulin 0.7 g/dL (0.4-1.8); Protein, Total 6.8 g/dL (6.0-8.5)
[2020-12-15 19:34] LABS: Angiotensin Converting Enzyme 88 U/L (14-82)
== END ==
PROVIDERS: PCP Family Medicine; Visit Provider Specialist
DX: G62.9 Polyneuropathy, unspecified (principal); G89.29 Other chronic pain; M54.5 Low back pain; M79.671 Pain in right foot; M79.672 Pain in left foot; R20.0 Anesthesia of skin; R20.2 Paresthesia of skin; Z79.899 Other long term (current) drug therapy
CPT/HCPCS: 36415; 80053; 80061; 82164; 82746; 84155; 84165; 84436; 84443; 84479; 85025; 86334

== ENCOUNTER → 2020-12-28 13:42 | Outpatient (CLI) | payer MEDICARE, MEDICAID, SELFPAY ==
--- NOTE | 2020-12-28 13:42 | MR_ITS ---
PROCEDURE: MR LUMBAR SPINE WO CON CLINICAL INDICATION: chronic lower back pain Lbp xyrs. No recent injury. Prior mri 06/23/17 COMPARISON: MR QUALITY LAB TECHNICIAN/O MRI-L-SPINE W/O from 06/23/2017 TECHNIQUE: Standard multiplanar multiecho sequences are performed without contrast. 3-D MIP and myelographic images are also rendered and reviewed FINDINGS: There is normal alignment. Spinal cord ends at the L1 level. T12-L1: Unremarkable. L1-L2: Unremarkable. L2-L3: Unremarkable. L3-L4: Unremarkable. L4-5: There is bulging disc with a broad-based left paracentral and foraminal disc protrusion. This is slightly larger compared to the previous exam and is causing some impingement upon the left L5 nerve root with left lateral recess narrowing and mild left foraminal narrowing. There is facet hypertrophic change also present at this level. Slight increased T1 and T2 signal involves the superior posterior aspect of the L5 vertebral body suggesting lipomatosis or hemangiomatous involvement. Borderline canal stenosis. L5-S1: Mild facet and ligamentum hypertrophy greater on the left with mild left foraminal narrowing. IMPRESSION: There is bulging disc with a broad-based left paracentral and foraminal disc protrusion. This is slightly larger compared to the previous exam and is causing some impingement upon the left L5 nerve root with left lateral recess narrowing and mild left foraminal narrowing. There is facet hypertrophic change also present at this level. Borderline canal stenosis is present at this level Mild left foraminal narrowing at L5-S1 from facet hypertrophic change. No extruded herniated disc. Dictated by: Amrik Spaulding MD 12/29/2020 13:31 Amrik Spaulding MD in [place] 12/29/2020 13:31
== END ==
PROVIDERS: PCP Family Medicine; Visit Provider Specialist
DX: G62.9 Polyneuropathy, unspecified (principal); G89.29 Other chronic pain; M54.5 Low back pain; M79.671 Pain in right foot; M79.672 Pain in left foot; R20.0 Anesthesia of skin; R20.2 Paresthesia of skin
CPT/HCPCS: 72148; 76376

== ENCOUNTER 2021-01-02 16:00 | Emergency (ER) | payer MEDICARE, MEDICAID, SELFPAY ==
[2021-01-02 16:12] VITALS: BP 138/73; PULSE 79; RESP 20; TEMP 36.7; O2SAT 95; BMI 29.9
--- NOTE | 2021-01-02 16:19 | HMH.EDUTC ---
[facility] [place] Disposition Clinical Impression: Strep throat, COVID-19 virus test result unknown Disposition: Home, Self-Care Condition on Discharge: Good Instructions: DI for Strep Throat, DI for COVID-19 (Suspected or Confirmed ), Preventing the Spread of Coronavirus Discharge Instructions Additional Instructions: Monitor temperature. Seek treatment if fever develops. Follow-up immediately if new or worse symptoms worsen or no noticeable improvement over 48 hours. Increase fluids such as water, Gatorade, Powerade, juice or Pedialyte with limited formula/dietary in children No food is okay as long as you are drinking. Once ready to eat start bland such as bananas, rice, applesauce, toast. Contagious until no diarrhea, vomiting, fever times 48 hours without medication Avoid antidiarrheals unless told otherwise. Best to let the virus run its course. Follow-up immediately for new or worsening symptoms or no noticeable improvement over the next 48 hours. covid swab was sent for testing self isolate until test results are known to be neg Prescriptions: Azithromycin [Zithromax 250mg tab] 250 mg PO DIRECTED #6 tab Prescription Printed Referrals: Rubio Diaz MD [Primary Care Provider] - Time of Disposition: 16:33 Medical Decision Making - Nader Inquiry Pt receiving controlled substance: No Vital Signs: 01/02/21 16:12 Temperature 98.0 F Temperature Source Oral Pulse Rate [Right Brachial] 79 Respiratory Rate 20 Blood Pressure [Right Arm] 138/73 Blood Pressure Mean [Right Arm] 94 Blood Pressure Source [Right Arm] Automatic Cuff Blood Pressure Position [Right Arm] Sitting 02 Sat by Pulse Oximetry 95 Oxygen Delivery Method Room Air [facility] [place] HPI - General Chief complaint: Urgent Treatment Center Stated complaint: lost voice and vomitting diarrhea Time Seen by Provider: 01/02/21 16:20 Mode of Arrival: Ambulatory Source of Information: Patient Limitations: No Limitations Description of Symptoms (Recalled from Triage Doc. by RN): PATIENT C/O VOMITING, DIARRHEA, AND LOST/RASPY VOICE X 2 DAYS HEENT Symptoms (Recalled from RN notes): No Resp Symptoms (Recalled from RN notes): No Skin Symptoms (Recalled from RN notes): No MS Symptoms (Recalled from RN notes): No Functional Status (Recalled from RN notes): WNL - History of Present Illness Provider Complaint: 60 yr old female presnets for sore throat, vomiting x 2 today and diarrhea for a few days. pt states today she has lost her voice and diatthea has improved. - Related Data Home Medications Medication Instructions Recorded Confirmed clonazepam 0.5 mg tablet 0.5 mg PO BID tab 11/27/17 12/14/20 fluticasone furoate 27.5 1 spray INTRANASAL QDAY 11/27/17 12/14/20 mcg/actuation nasal spray,suspension amitriptyline 25 mg tablet 50 mg PO QHS tab 06/17/20 12/14/20 duloxetine 20 mg capsule,delayed 90 mg PO QDAY cap 06/17/20 12/14/20 release aspirin 81 mg tablet,delayed 81 mg PO DAILY 12/14/20 12/14/20 release celecoxib 200 mg capsule 200 mg PO BID cap 12/14/20 12/14/20 furosemide 20 mg tablet 20 mg PO DAILY tab 12/14/20 12/14/20 metformin 1,000 mg tablet 1,000 mg PO DAILY tab 12/14/20 12/14/20 omeprazole 20 mg capsule,delayed 20 mg PO DAILY cap 12/14/20 12/14/20 release potassium chloride 10 mEq 10 meq PO DAILY tab 12/14/20 12/14/20 tablet,extended release(part/cryst) Previous Rx's Medication Instructions Recorded atorvastatin 10 mg tablet 10 mg PO QDAY #30 tab 12/18/18 bisoprolol fumarate 5 mg tablet 5 mg PO QDAY #30 tab 12/24/19 Ondansetron [Zofran 4mg ODT] 4 mg PO Q8HP PRN #9 tab.rapdis 07/13/20 gabapentin 800 mg tablet 800 mg PO TID 30 Days #90 tab 12/14/20 Azithromycin [Zithromax 250mg 250 mg PO DIRECTED #6 tab 01/02/21 tab] Allergies Allergy/AdvReac Type Severity Reaction Status Date / Time amoxicillin Allergy Intermediate I-RASH Verified 12/14/20 09:22 Penicillins [PENICILLINS] Allergy Unknown Verified
[2021-01-02 16:34] VITALS: BP 138/73; PULSE 79; RESP 20; TEMP 36.7; O2SAT 95
[2021-01-02 16:44] LABS: UTC Strep Screen (Rapid) Positive (Negative)
== END 2021-01-02 16:37 | disposition home or self-care (01) ==
PROVIDERS: Emergency Provider Nurse Practitioner Family; PCP Internal Medicine Adolescent Medicine
DX: J02.0 Streptococcal pharyngitis (principal); Z20.822 Contact with and (suspected) exposure to COVID-19; E78.5 Hyperlipidemia, unspecified; E11.9 Type 2 diabetes mellitus without complications; F41.8 Other specified anxiety disorders; I10 Essential (primary) hypertension; F17.210 Nicotine dependence, cigarettes, uncomplicated; Z79.899 Other long term (current) drug therapy; Z88.0 Allergy status to penicillin
CPT/HCPCS: G0463; 87880; 99202; U0003

== ENCOUNTER 2021-01-16 12:18 | Emergency (ER) | payer MEDICARE, MEDICAID, SELFPAY ==
[2021-01-16 12:33] VITALS: BP 134/75; PULSE 72; RESP 14; TEMP 36.9; O2SAT 94; BMI 25.0
--- NOTE | 2021-01-16 12:47 | HMH.EDUTC ---
[facility] [place] Clinical Impression: COVID-19 virus test result unknown Disposition: Home, Self-Care Condition on Discharge: Good Instructions: DI for COVID-19 (Suspected or Confirmed ), Preventing the Spread of Coronavirus Discharge Instructions Additional Instructions: self isolate until test results are known to be neg salt water gargles if symptoms worsen or do not improve return or be seen in ed follow up with pcp this week Referrals: Rubio Mcdonnell MD [Primary Care Provider] - Time of Disposition: 12:51 Medical Decision Making - Nader Inquiry Pt receiving controlled substance: No Vital Signs: 01/16/21 12:33 Temperature 98.5 F Temperature Source Oral Pulse Rate [Right] 72 Respiratory Rate 14 Blood Pressure [Right Arm] 134/75 Blood Pressure Mean [Right Arm] 94 Blood Pressure Source [Right Arm] Automatic Cuff Blood Pressure Position [Right Arm] Sitting 02 Sat by Pulse Oximetry 94 L Oxygen Delivery Method Room Air [facility] [place] HPI - General Chief complaint: Urgent Treatment Center Stated complaint: sore throat, blisters Time Seen by Provider: 01/16/21 12:47 Mode of Arrival: Wheelchair Source of Information: Patient Limitations: No Limitations Description of Symptoms (Recalled from Triage Doc. by RN): pt has a sore throat and hoarse cough. son tested positive for covid on monday. HEENT Symptoms (Recalled from RN notes): Yes (sore throat) Resp Symptoms (Recalled from RN notes): Yes (cough) Skin Symptoms (Recalled from RN notes): No MS Symptoms (Recalled from RN notes): No Functional Status (Recalled from RN notes): na - History of Present Illness Provider Complaint: 60 yr old female presents for sore throat. Pt states she finished zpak and still having sore throat. pt states her son tested positive for covid on - Related Data Home Medications Medication Instructions Recorded Confirmed clonazepam 0.5 mg tablet 0.5 mg PO BID tab 11/27/17 01/04/21 aspirin 81 mg tablet,delayed 81 mg PO DAILY 12/14/20 01/04/21 release celecoxib 200 mg capsule 200 mg PO BID cap 12/14/20 01/04/21 furosemide 20 mg tablet 20 mg PO DAILY tab 12/14/20 01/04/21 metformin 1,000 mg tablet 1,000 mg PO DAILY tab 12/14/20 01/04/21 omeprazole 20 mg capsule,delayed 20 mg PO DAILY cap 12/14/20 01/04/21 release potassium chloride 10 mEq 10 meq PO DAILY tab 12/14/20 01/04/21 tablet,extended release(part/cryst) amitriptyline 50 mg tablet 50 mg PO tab 01/04/21 01/04/21 duloxetine 30 mg capsule,delayed mg PO 01/04/21 01/04/21 release duloxetine 60 mg capsule,delayed 60 mg PO cap 01/04/21 01/04/21 release fluticasone propionate 50 INTRANASAL 01/04/21 01/04/21 mcg/actuation nasal spray,suspension Previous Rx's Medication Instructions Recorded atorvastatin 10 mg tablet 10 mg PO QDAY #30 tab 12/18/18 bisoprolol fumarate 5 mg tablet 5 mg PO QDAY #30 tab 12/24/19 Ondansetron [Zofran 4mg ODT] 4 mg PO Q8HP PRN #9 tab.rapdis 07/13/20 gabapentin 800 mg tablet 800 mg PO TID 30 Days #90 tab 12/14/20 Azithromycin [Zithromax 250mg 250 mg PO DIRECTED #6 tab 01/02/21 tab] Allergies Allergy/AdvReac Type Severity Reaction Status Date / Time amoxicillin Allergy Intermediate I-RASH Verified 01/16/21 12:39 Penicillins [PENICILLINS] Allergy Unknown Verified 01/16/21 12:39 - Worker's Comp Is this a Worker's Comp case?: No H History - Hepatitis A Screen Drug use history?: No High risk sexual behaviors?: No History of sexually transmitted infection?: No Currently employed?: No Childcare worker?: No Do you have indoor plumbing?: Yes Do you have electricity?: Yes Attestation statement:: This patient has been screened for Hepatitis A risk factors. I have reviewed the patient's past medical history: Yes Medical History: Reports:: Anxiety, Chronic Obstructive Pulmonary Disease (COPD), Depression, Diabetes Mellitus Type 2, Hyperlipidemia, Hypertension Denies:: Cancer, Diabetes Melli
[2021-01-16 12:50] VITALS: BP 136/79; PULSE 71; RESP 16; TEMP 36.8
[2021-01-16 19:06] LABS: UTC Strep Screen (Rapid) Negative (Negative)
--- NOTE | 2021-01-16 20:13 | PC.NURSE ---
PATIENT NOTIFIED OF POSITIVE COVID RESULTS
== END 2021-01-16 12:54 | disposition home or self-care (01) ==
PROVIDERS: Emergency Provider Nurse Practitioner Family; PCP Family Medicine
DX: U07.1 COVID-19 (principal); E11.9 Type 2 diabetes mellitus without complications; F41.8 Other specified anxiety disorders; E78.5 Hyperlipidemia, unspecified; I10 Essential (primary) hypertension; J44.9 Chronic obstructive pulmonary disease, unspecified; F17.210 Nicotine dependence, cigarettes, uncomplicated; Z79.899 Other long term (current) drug therapy
CPT/HCPCS: G0463; 87880; 99202; U0003

== ENCOUNTER 2021-01-19 12:59 | Outpatient (CLI) | payer MEDICARE, MEDICAID, SELFPAY ==
[2021-01-19] VITALS (7 sets, daily range): BP systolic 117–127; BP diastolic 46–70; PULSE 67–81; RESP 18–20; TEMP 36.8–36.9; O2SAT 93–100
== END 2021-01-19 15:25 | disposition home or self-care (01) ==
PROVIDERS: PCP Family Medicine; Visit Provider Family Medicine
DX: U07.1 COVID-19 (principal)
CPT/HCPCS: 96365

== ENCOUNTER → 2021-02-02 13:12 | Outpatient (CLI) | payer MEDICARE, MEDICAID, SELFPAY ==
--- NOTE | 2021-02-02 13:23 | XR_ITS ---
PROCEDURE: XR LUMBAR SPINE MIN 4V CLINICAL INDICATION: chronic lower back pain COMPARISON: CR LS5 LUMBAR SPINE 5 VIEWS from 06/29/2015 FINDINGS: No acute fractures or traumatic subluxation. Multilevel degenerative changes with facet joint arthropathy is noted. Bone density is normal. Vascular calcification is noted. Otherwise the paravertebral soft tissues IMPRESSION: Minor multilevel degenerative changes as described above. No acute abnormality. Dictated by: Chely Gunderson 02/02/2021 14:47 Chely Gunderson in [place] 02/02/2021 14:47
== END ==
PROVIDERS: PCP Family Medicine; Visit Provider Specialist
DX: G62.9 Polyneuropathy, unspecified (principal); G89.29 Other chronic pain; M54.5 Low back pain; M79.671 Pain in right foot; M79.672 Pain in left foot; R20.0 Anesthesia of skin; R20.2 Paresthesia of skin
CPT/HCPCS: 72110

== ENCOUNTER 2021-03-04 20:08 | Emergency (ER) | payer MEDICARE, MEDICAID, SELFPAY ==
[2021-03-04 20:10] VITALS: BP 151/73; PULSE 88; RESP 20; TEMP 37.1; O2SAT 96; BMI 33.3
--- NOTE | 2021-03-04 20:44 | HMH.EDLOEX ---
ED Disposition Clinical Impression: Lower extremity edema, Neuropathy Disposition: Home, Self-Care Condition on Discharge: Good Instructions: DI for Diabetic Neuropathy Additional Instructions: call pcp for follow up Referrals: Rubio Mcdonnell MD [Primary Care Provider] - - Critical Care Critical Care Time: No Attestation: On 03/04/21, the high probability of a clinically significant, sudden or life threatening deterioration of the following system(s) required my full and direct attention, intervention and personal management. The time I documented below is in addition to time spent performing reported procedures but includes the following listed in this critical care notation. Medical Decision Making - Medical Records Medical records reviewed: Yes: I reviewed the patient's medical records. - Nader Inquiry Pt receiving controlled substance: No Vital Signs: 03/04/21 20:10 Temperature 98.8 F Temperature Source Oral Pulse Rate [Right] 88 Respiratory Rate 20 Blood Pressure [Right Arm] 151/73 H Blood Pressure Mean [Right Arm] 99 Blood Pressure Source [Right Arm] Automatic Cuff 02 Sat by Pulse Oximetry 96 Oxygen Delivery Method Room Air - Lab Data Lab results reviewed: Yes: I reviewed the patient's lab results. Lab Results 03/04/21 20:26: WBC 9.3, RBC 4.79, Hgb 13.7, Hct 40.6, MCV 84.7, MCH 28.6, MCHC 33.7, RDW 14.6, Plt Count 294, MPV 7.4, Neut % (Auto) 43.7, Lymph % (Auto) 46.0, [place] % (Auto) 5.2, Eos % (Auto) 4.1, Baso % (Auto) 1.0, Neut # (Auto) 4.1, Lymph # (Auto) 4.3, [place] # (Auto) 0.5, Eos # (Auto) 0.4, Baso # (Auto) 0.1 03/04/21 20:26: Sodium 139, Potassium 4.2, Chloride 103, Carbon Dioxide 29, Anion Gap 11.2, BUN 16, Creatinine 1.00, Estimated Creat Clear 84, Estimated GFR 56 L, Est GFR ( Amer) 68, Glucose 151 H, Calcium 9.5, Total Bilirubin 0.4, AST 34, ALT 29, Alkaline Phosphatase 109, C-Reactive Protein 6.8 H, Total Protein 7.5, Albumin 4.4, Globulin 3.1, Albumin/Globulin Ratio 1.4 03/04/21 20:26: NT-Pro-B Natriuret Pep 115 Result diagrams: 03/04/21 20:26 03/04/21 20:26 Orders (Tests/Meds): ORDERS Category Date Time Status C-Reactive Protein Stat Lab 03/04/21 20:26 Results Complete Blood Count Auto Diff Stat Lab 03/04/21 20:26 Results Comprehensive Metabolic Panel Stat Lab 03/04/21 20:26 Results Erythrocyte Sedimentation Rate Stat Lab 03/04/21 20:26 Results Procalcitonin Stat Lab 03/04/21 20:26 Results Lower Extremity Injury HPI - General Chief Complaint: Extremity Problem,Nontraumatic Stated Complaint: both feet Time Seen by Provider: 03/04/21 20:20 Mode of Arrival: Ambulatory Source of Information: Patient, Medical Record Limitations: No Limitations Description of Symptoms (Recalled from ER Triage Doc. by RN): Pt c/o increased swelling to her feet. She states she has been tkaing her fluid pill every morning as prescribed. Pt reports occasional exertional SOB. She has +2 pitting edema. - History of Present Illness HPI Narrative: pt has ongoing neuropathic pain to lower ext and upper ext with assoc edema - has seen and being treated for this by pcp - she reports compliance with meds MD complaint: other (lower ext pain ) Onset (ago): day(s) Injury: Bilateral: foot Type of Injury: other (no injury) Place: home Severity: moderate Exacerbating factors: palpation Other symptoms: none - Related Data Home Medications Medication Instructions Recorded Confirmed clonazepam 0.5 mg tablet 0.5 mg PO BID tab 11/27/17 03/04/21 aspirin 81 mg tablet,delayed 81 mg PO DAILY 12/14/20 03/04/21 release celecoxib 200 mg capsule 200 mg PO BID cap 12/14/20 03/04/21 furosemide 20 mg tablet 20 mg PO DAILY tab 12/14/20 03/04/21 metformin 1,000 mg tablet 1,000 mg PO DAILY tab 12/14/20 03/04/21 omeprazole 20 mg capsule,delayed 20 mg PO DAILY cap 12/14/20 03/04/21 release potassium chloride 10 mEq 10 meq PO DAILY tab 12/14/20 03/04/21 tablet,extended release(par
[2021-03-04 20:46] LABS: Basophils # 0.1 K/mm3 (0-0.2); Eosinophils # 0.4 K/mm3 (0.0-0.4); Eosinophils % 4.1 % (0.1-12.0); Hematocrit 40.6 % (37.0-47.0); Hemoglobin 13.7 g/dL (12.2-16.2); Lymphocytes # 4.3 K/mm3 (0.7-4.5); Mean Corpuscular HGB Conc 33.7 g/dL (31.8-35.4); Mean Corpuscular Hemoglobin 28.6 pg (27.0-31.2); Mean Corpuscular Volume 84.7 fl (81-99); Mean Platelet Volume 7.4 fl (7.4-10.4); Monocytes # 0.5 K/mm3 (0.1-1.0); Monocytes % 5.2 % (1.7-9.3); Neutrophils # 4.1 K/mm3 (1.8-7.8); Neutrophils % 43.7 % (37.0-80.0); Platelet Count 294 K/mm3 (142-424); Red Blood Count 4.79 M/mm3 (4.20-5.40); Red Cell Distribution Width 14.6 % (11.5-17.5); White Blood Count 9.3 K/mm3 (4.8-10.8)
[2021-03-04 20:52] LABS: Alanine Aminotransferase 29 U/L (12-78); Albumin Level 4.4 g/dl (3.5-5.0); Albumin/Globulin Ratio 1.4 (1.1-1.8); Alkaline Phosphatase 109 U/L (38-126); Aspartate Amino Transferase 34 U/L (14-36); Bilirubin,Total 0.4 mg/dl (0.2-1.3); Blood Urea Nitrogen 16 mg/dl (7-17); Calcium 9.5 mg/dl (8.4-10.2); Carbon Dioxide 29 mmol/L (22.0-30.0); Creatinine Clearance Estimated 84 mL/min (50-200); Estimated Glomerular Filt Rate 56 ml/min (>60); GFR (African American) 68 ML/MIN (>60); Globulin 3.1 g/dL (1.3-3.2); Glucose 151 mg/dl (74-100); Potassium 4.2 mmoL/L (3.5-5.1); Sodium 139 mmol/L (136-145); Total Protein,Serum 7.5 g/dl (6.3-8.2)
[2021-03-04 20:57] LABS: C-Reactive Protein 6.8 mg/L (0-4)
[2021-03-04 21:02] LABS: Anion Gap 11.2 mEq/L (5-15); Chloride 103 mmol/L (98-107)
[2021-03-04 21:03] LABS: NT Pro Brain Natriuretic Pep. 115 pg/mL (0-125)
--- NOTE | 2021-03-04 21:09 | PC.NURSE ---
Pt requested staff to remove IV
[2021-03-04 21:11] LABS: Procalcitonin 0.056 ng/mL (0.0-2.0)
[2021-03-04 21:15] LABS: Erythrocyte Sedimentation Rate 24 mm/hr (0-30)
[2021-03-04 21:17] VITALS: BP 148/72; PULSE 84; RESP 16; TEMP 37.1; O2SAT 96
== END 2021-03-04 21:20 | disposition home or self-care (01) ==
PROVIDERS: Emergency Provider Emergency Medicine; PCP Family Medicine
DX: R60.0 Localized edema (principal); Z86.16 Personal history of COVID-19; E11.9 Type 2 diabetes mellitus without complications; I10 Essential (primary) hypertension; E78.5 Hyperlipidemia, unspecified; F41.8 Other specified anxiety disorders; F17.210 Nicotine dependence, cigarettes, uncomplicated; Z88.0 Allergy status to penicillin
CPT/HCPCS: 80053; 83880; 84145; 85025; 85651; 86140; 99282

== ENCOUNTER → 2021-03-16 10:36 | Outpatient (POV) | payer MEDICARE, MEDICAID, SELFPAY | PROVIDERS: Visit Provider Dermatology | DX: Z00.00 Encounter for general adult medical examination without abnormal findings (principal) ==

== ENCOUNTER → 2021-04-29 09:44 | Outpatient (CLI) | payer MEDICARE, MEDICAID, SELFPAY ==
[2021-04-30 15:59] LABS: Sjogren's Anti-SS-A <0.2 AI (0.0-0.9); Sjogren's Anti-SS-B <0.2 AI (0.0-0.9)
== END ==
PROVIDERS: Visit Provider Nurse Practitioner Family
DX: G62.9 Polyneuropathy, unspecified (principal); M79.671 Pain in right foot; M79.672 Pain in left foot; R25.2 Cramp and spasm
CPT/HCPCS: 36415; 86235

== ENCOUNTER → 2021-06-17 10:14 | Outpatient (POV) | payer MEDICARE, MEDICAID, SELFPAY | PROVIDERS: Visit Provider Audiologist | DX: Z00.00 Encounter for general adult medical examination without abnormal findings (principal) ==

== ENCOUNTER → 2021-07-13 10:50 | Outpatient (POV) | payer MEDICARE, MEDICAID, SELFPAY | PROVIDERS: Visit Provider Dermatology | DX: Z00.00 Encounter for general adult medical examination without abnormal findings (principal) ==

== ENCOUNTER → 2021-07-15 09:51 | Outpatient (POV) | payer MEDICARE, MEDICAID, SELFPAY | PROVIDERS: Visit Provider Audiologist | DX: Z00.00 Encounter for general adult medical examination without abnormal findings (principal) ==

== ENCOUNTER → 2021-07-15 11:00 | Outpatient (CLI) | payer MEDICARE, MEDICAID, SELFPAY ==
--- NOTE | 2021-07-15 11:06 | MM_ITS ---
PROCEDURE: MM DIG SCREENING MAMM BI W/CAD Digital Breast Tomosynthesis Included CLINICAL INDICATION: SCREENING COMPARISON: MG DMDBAV DIG MAMM-DX [place] W/AVWS W/CAD from 09/22/2017 MG SCBI MM Dig screening mamm BI w/CAD from 09/07/2018 MG MM DIG SCREENING MAMM BI W/CAD from 07/10/2020 TECHNIQUE: Standard CC and MLO images and 3D Tomosynthesis was obtained. R2 CAD reviewed. FINDINGS: The breasts are heterogeneously dense which may obscure small masses. No malignant appearing mass or malignant-appearing microcalcification. Bilateral benign-appearing nodules and calcifications. Two clips in the medial aspect of the right breast with some architectural distortion in this region. No significant change. IMPRESSION: Benign findings. No evidence of malignancy BI-RAD Category: 2 Benign Finding FOLLOW-UP: 1 YR 1 Year Follow-up (A letter has been sent to the patient regarding results of the study.) Dictated by: Amrik Spaulding MD 07/29/2021 09:56 Amrik Spaulding MD in [place] 07/29/2021 09:56
== END ==
PROVIDERS: PCP Family Medicine; Visit Provider Family Medicine
DX: Z12.31 Encounter for screening mammogram for malignant neoplasm of breast (principal)
CPT/HCPCS: 77063; 77067

== ENCOUNTER 2021-09-16 10:24 | Emergency (ER) | payer MEDICARE, MEDICAID, SELFPAY ==
[2021-09-16 10:57] VITALS: BP 154/114; PULSE 103; RESP 20; TEMP 37.7; O2SAT 92; BMI 32.4
--- NOTE | 2021-09-16 11:01 | XR_ITS ---
PROCEDURE: XR CHEST 2V CLINICAL HISTORY: cough COMPARISON: CT [facility] CT CHEST W/O CONTRAST from 05/14/2014 CR CXR1 CHEST-PORTABLE from 02/21/2017 CR CXR2V XR chest 2V from 04/12/2018 CR CXR2V XR chest 2V from 04/15/2018 FINDINGS: The cardiomediastinal silhouette and pulmonary vascularity are within normal limits. The lungs are clear without infiltrates, suspicious nodules, or pleural effusions. No acute bony abnormalities. IMPRESSION: No acute findings. Dictated by: Amrik Spaulding MD 09/16/2021 11:44 Amrik Spaulding MD in [place] 09/16/2021 11:44
--- NOTE | 2021-09-16 11:42 | HMH.EDUTC ---
[facility] [place] Disposition Clinical Impression: Bronchitis, Viral syndrome Disposition: Home, Self-Care Condition on Discharge: Good Instructions: DI for Acute Bronchitis, DI for COVID-19 (Suspected or Confirmed ), Preventing the Spread of Coronavirus Discharge Instructions Additional Instructions: Drink plenty of fluids. Take tylenol or ibuprofen for pain or fever. Take the medications as directed. Follow up with your regular doctor. GO TO THE ER FOR ANY WORSENING SYMPTOMS Quarantine until you know the results of your covid-19 test. If it is positive, the health department should call you and give you further instructions about your length of Quarantine and other things. Notify your school or workplace of your results and follow their instructions regarding return to work/school. Prescriptions: Benzonatate [Benzonatate 100mg cap] 100 mg PO TIDP PRN #30 cap PRN Reason: Cough Transmission Status: Received by [facility] methylPREDNISolone [Medrol] 4 mg PO DIRECTED 6 Days #21 packet Transmission Status: Received by [facility] Azithromycin [Z-Paul 250mg Tab*] 250 mg PO UD DOSE PK #6 tab Transmission Status: Received by [facility] Referrals: Rubio Mcdonnell MD [Primary Care Provider] - Time of Disposition: 12:11 Medical Decision Making - Medical Records Medical records reviewed: No: I reviewed the patient's medical records. - Nader Inquiry Pt receiving controlled substance: No Vital Signs: 09/16/21 10:57 09/16/21 12:15 Temperature 99.9 F H 99.9 F H Temperature Source Oral Pulse Rate 103 H Pulse Rate [Left] 103 H Respiratory Rate 20 20 Blood Pressure 154/114 H Blood Pressure [Right Arm] 154/114 H Blood Pressure Mean [Right Arm] 127 02 Sat by Pulse Oximetry 92 L Oxygen Delivery Method Room Air - Lab Data Lab results reviewed: Yes: I reviewed the patient's lab results. Lab Results 09/16/21 12:12: Chlamy pneumoniae PCR Not detected, Adenovirus (PCR) Not detected, B. pertussis DNA (PCR) Not detected, Coronavirus OC43 (PCR) Not detected, Coronavirus HKU1 (PCR) Not detected, Coronavirus 229E (PCR) Not detected, SARS-CoV-2 (PCR) Not detected, Coronavirus NL63 (PCR) Not detected, Human Metapneumovir PCR Not detected, Influenza A (H1) PCR Not detected, Influ A (H1N1/09) PCR Not detected, Influenza A (H3) PCR Not detected, Influenza Type A (PCR) Not detected, Influenza Type B (PCR) Not detected, M. pneumoniae (PCR) Not detected, Parainfluenza 1 (PCR) Not detected, Parainfluenza 2 (PCR) Not detected, Parainfluenza 3 (PCR) Not detected, Parainfluenza 4 (PCR) Not detected, RSV (PCR) Not detected, Entero/Rhino (PCR) Not detected - Radiology Data #1 Image(s): Chest Image Reviewed: Yes I reviewed the patient's radiology image, Yes I have reviewed radiologist's interpretation Preliminary Findings: Normal/NAD, No Infiltrates Seen PROCEDURE: XR CHEST 2V CLINICAL HISTORY: cough COMPARISON: CT [facility] CT CHEST W/O CONTRAST from 05/14/2014 CR CXR1 CHEST-PORTABLE from 02/21/2017 CR CXR2V XR chest 2V from 04/12/2018 CR CXR2V XR chest 2V from 04/15/2018 FINDINGS: The cardiomediastinal silhouette and pulmonary vascularity are within normal limits. The lungs are clear without infiltrates, suspicious nodules, or pleural effusions. No acute bony abnormalities. IMPRESSION: No acute findings. Dictated by: Amrik Spaulding MD 09/16/2021 11:44 Amrik Spaulding MD in [place] 09/16/2021 11:44 [facility] [place] HPI - General Stated complaint: cough, congestion, soa Time Seen by Provider: 09/16/21 11:42 Mode of Arrival: Ambulatory Source of Information: Patient Limitations: No Limitations Description of Symptoms (Recalled from Triage Doc. by RN): pt c/o a productive cough with a thick yellow sputum and wheezing x2 days. HEENT Symptoms (Recalled from RN notes): No Resp Symptoms (Recalled from RN notes): Yes (productive cough with thick yellow sputum) Skin S
[2021-09-16 12:15] VITALS: BP 154/114; PULSE 103; RESP 20; TEMP 37.7
[2021-09-16 12:18] LABS: Adenovirus,PCR Not Detected (NotDetected); Bordetella Pertussis Not Detected (NotDetected); Chlamydophila Pneumoniae, PCR Not Detected (NotDetected); Coronavirus 19, PCR Not Detected (NotDetected); Coronavirus 229E Not Detected (NotDetected); Coronavirus NL63 Not Detected (NotDetected); Coronavirus OC43 Not Detected (NotDetected); Coronovirus HKU1,PCR Not Detected (NotDetected); Human Metapneumovirus Not Detected (NotDetected); Influenza A, PCR Not Detected (NotDetected); Influenza AH1, 2009 Not Detected (NotDetected); Influenza AH1, PCR Not Detected (NotDetected); Influenza AH3,PCR Not Detected (NotDetected); Influenza B, PCR Not Detected (NotDetected); Mycoplasma Pneumoniae, PCR Not Detected (NotDetected); Parainfluenza 1, PCR Not Detected (NotDetected); Parainfluenza 2, PCR Not Detected (NotDetected); Parainfluenza 3, PCR Not Detected (NotDetected); Parainfluenza 4, PCR Not Detected (NotDetected); Respiratory Syncytial Virus Not Detected (NotDetected); Rhinovirus/Enterovirus Not Detected (NotDetected)
== END 2021-09-16 12:16 | disposition home or self-care (01) ==
PROVIDERS: Emergency Provider Nurse Practitioner Family; PCP Family Medicine
DX: J20.9 Acute bronchitis, unspecified (principal); B34.9 Viral infection, unspecified; F41.8 Other specified anxiety disorders; E11.9 Type 2 diabetes mellitus without complications; E78.5 Hyperlipidemia, unspecified; I10 Essential (primary) hypertension; J44.9 Chronic obstructive pulmonary disease, unspecified; Z20.822 Contact with and (suspected) exposure to COVID-19; Z79.899 Other long term (current) drug therapy
CPT/HCPCS: G0463; 71046; 87581; 87632; 87798; 99202; C9803; U0003; U0005

== ENCOUNTER → 2021-11-01 12:28 | Outpatient (CLI) | payer MEDICARE, MEDICAID, SELFPAY ==
[2021-11-01 12:54] LABS: Basophils # 0.2 K/mm3 (0-0.2); Basophils % 1.9 % (0.1-2.0); Eosinophils # 0.3 K/mm3 (0.0-0.4); Hematocrit 42.2 % (37.0-47.0); Lymphocytes # 3.4 K/mm3 (0.7-4.5); Lymphocytes % 40.4 % (10-50); Mean Corpuscular Hemoglobin 28.3 pg (27.0-31.2); Mean Corpuscular Volume 85.8 fl (81-99); Mean Platelet Volume 7.7 fl (7.4-10.4); Monocytes # 0.4 K/mm3 (0.1-1.0); Monocytes % 4.6 % (1.7-9.3); Neutrophils # 4.2 K/mm3 (1.8-7.8); Neutrophils % 50.1 % (37.0-80.0); Platelet Count 317 K/mm3 (142-424); Red Blood Count 4.92 M/mm3 (4.20-5.40); Red Cell Distribution Width 14.6 % (11.5-17.5); White Blood Count 8.3 K/mm3 (4.8-10.8)
[2021-11-01 13:11] LABS: Hemoglobin A1C 6.4 % (4.0-6.0)
[2021-11-01 13:41] LABS: Free T4 (Free Thyroxine) 0.94 ng/dl (0.78-2.19)
[2021-11-01 14:05] LABS: Alanine Aminotransferase 22 U/L (12-78); Albumin Level 4.2 g/dl (3.5-5.0); Albumin/Globulin Ratio 1.6 (1.1-1.8); Alkaline Phosphatase 115 U/L (38-126); Anion Gap 12.8 mEq/L (5-15); Aspartate Amino Transferase 28 U/L (14-36); Bilirubin,Total 0.4 mg/dl (0.2-1.3); Blood Urea Nitrogen 12 mg/dl (7-17); Calcium 9.1 mg/dl (8.4-10.2); Carbon Dioxide 29 mmol/L (22.0-30.0); Chloride 101 mmol/L (98-107); Cholesterol 129 mg/dl (140-200); Estimated Glomerular Filt Rate 72 ml/min (>60); GFR (African American) 88 ML/MIN (>60); Globulin 2.7 g/dL (1.3-3.2); Glucose 135 mg/dl (74-100); HDL Cholesterol 32 mg/dl (40-60); Potassium 3.8 mmoL/L (3.5-5.1); Sodium 139 mmol/L (136-145); Total Protein,Serum 6.9 g/dl (6.3-8.2); Triglycerides 227 mg/dl (30-150); VLDL Cholesterol 45 mg/dL (0-40)
[2021-11-01 14:16] LABS: Direct LDL Cholesterol 64.71 mg/dL (100-129)
[2021-11-01 14:36] LABS: Thyroid Stimulating Hormone 2.39 uIU/mL (0.465-4.68)
== END ==
PROVIDERS: Visit Provider Family Medicine
DX: E11.610 Type 2 diabetes mellitus with diabetic neuropathic arthropathy (principal); E11.40 Type 2 diabetes mellitus with diabetic neuropathy, unspecified; Z79.84 Long term (current) use of oral hypoglycemic drugs
CPT/HCPCS: 36415; 80053; 80061; 83036; 84439; 84443; 85025

== ENCOUNTER → 2022-01-25 13:35 | Outpatient (CLI) | payer MEDICARE, MEDICAID, SELFPAY ==
[2022-01-25 15:22] LABS: Magnesium 1.9 mg/dl (1.6-2.3)
[2022-01-25 16:25] LABS: Vitamin B12 496 pg/mL (239-931)
[2022-01-25 16:35] LABS: Folate > 20.00 ng/mL
[2022-01-25 17:37] LABS: Iron 58 ug/dL (37-170)
[2022-01-25 17:45] LABS: Total Iron Binding Capacity 349 ug/dL (265-497)
[2022-01-25 18:14] LABS: Ferritin 19.9 ng/ml (11.1-264)
[2022-01-27 13:08] LABS: Hepatitis C Antibody <0.1 s/co ratio (0.0-0.9)
[2022-01-30 15:08] LABS: Zinc 70 ug/dL (44-115)
== END ==
PROVIDERS: Visit Provider Student in an Organized Health Care Education/Training Program
DX: E11.8 Type 2 diabetes mellitus with unspecified complications; K14.6 Glossodynia; Z79.84 Long term (current) use of oral hypoglycemic drugs
CPT/HCPCS: 36415; 82607; 82728; 82746; 83540; 83550; 83735; 84630; 87380

== ENCOUNTER 2022-02-02 14:32 | Emergency (ER) | payer MEDICARE, MEDICAID, SELFPAY ==
[2022-02-02 15:43] VITALS: BP 108/79; PULSE 91; RESP 20; TEMP 37.2; O2SAT 95; BMI 29.9
--- NOTE | 2022-02-02 16:39 | HMH.EDUTC ---
[facility] [place] Clinical Impression: Allergic reaction Qualifiers: Encounter type: initial encounter Qualified Code(s): T78.40XA - Allergy, unspecified, initial encounter Disposition: Home, Self-Care Condition on Discharge: Good Instructions: DI for General Allergic Reactions Additional Instructions: Try to identify and Avoid contact with the offending substance. Don't start the oral steroids until tomorrow. Don't put the topical steroids (triamcinolone) on your face or your groin. Follow up with your regular doctor first thing in the morning. GO TO THE ER FOR ANY WORSENING SYMPTOMS OR CONCERNS Discuss the oral steroids with Dr. Byrd at your visit in the morning before starting them. Follow his directions. Follow your diabetic diet closely while you are on the steroids. Prescriptions: hydrOXYzine pamoate [Vistaril 25mg capsule] 25 mg PO Q6HP PRN #30 cap PRN Reason: Itching Transmission Status: Received by [facility] methylPREDNISolone [Medrol] 4 mg PO DIRECTED 6 Days #21 packet Transmission Status: Received by [facility] Famotidine [Pepcid 20mg Tablet] 20 mg PO BID #28 tab Transmission Status: Received by [facility] Triamcinolone Acetonide 1 applicatio TP TIDP PRN 7 Days #1 gm PRN Reason: Itching Transmission Status: Received by [facility] Referrals: Malachi Byrd MD [Primary Care Provider] - Time of Disposition: 17:05 Medical Decision Making - Medical Records Medical records reviewed: No: I reviewed the patient's medical records. - Nader Inquiry Pt receiving controlled substance: No Vital Signs: 02/02/22 15:43 02/02/22 17:14 Temperature 99 F 99 F Temperature Source Oral Pulse Rate 91 H Pulse Rate [Left] 91 H Respiratory Rate 20 20 Blood Pressure 108/79 L Blood Pressure [Right Arm] 108/79 L Blood Pressure Mean [Right Arm] 88 02 Sat by Pulse Oximetry 95 Orders (Tests/Meds): ED MEDICATIONS Discontinued Medications Generic Name Dose Route Start Last Admin Trade Name Freq PRN Reason Stop Dose Admin Dexamethasone Sodium Phosphate 6 mg 02/02/22 16:52 02/02/22 17:06 Dexamethasone 4mg/Ml 1ml Vial IM 02/02/22 16:53 6 mg ONCE ONE Administration [facility] [place] HPI - General Stated complaint: blisters all over Time Seen by Provider: 02/02/22 16:40 Mode of Arrival: Wheelchair Source of Information: Patient Description of Symptoms (Recalled from Triage Doc. by RN): pt states her hands and inside of her thighs have been swollen since last night. bilaterally pts middle and ring finger are swollen up to her mid hand. pt states it itches and she feels lethargic. pt denies any change in medication, diet or external factors (ie detergents/soaps.) HEENT Symptoms (Recalled from RN notes): No Resp Symptoms (Recalled from RN notes): No Skin Symptoms (Recalled from RN notes): Yes MS Symptoms (Recalled from RN notes): No Functional Status (Recalled from RN notes): wnl - History of Present Illness Provider Complaint: She states that for the past 2 days she has been having itching and rash on her hands, arms, trunk and upper legs. She denies knowing any cause for this. She denies any chest pain, swelling of mouth or throat, chest tightness or other complaints. - Related Data Home Medications Medication Instructions Recorded Confirmed clonazepam 0.5 mg tablet 0.5 mg PO BID tab 11/27/17 02/03/22 aspirin 81 mg tablet,delayed 81 mg PO DAILY 12/14/20 02/03/22 release celecoxib 200 mg capsule 200 mg PO BID cap 12/14/20 02/03/22 metformin 1,000 mg tablet 1,000 mg PO DAILY tab 12/14/20 02/03/22 potassium chloride 10 mEq 10 meq PO DAILY tab 12/14/20 02/03/22 tablet,extended release(part/cryst) fluticasone propionate 50 1 spray INTRANASAL DAILY 01/04/21 02/03/22 mcg/actuation nasal spray,suspension amitriptyline 50 mg tablet 50 mg PO DAILY 06/03/21 02/03/22 duloxetine 60 mg capsule,delayed 60 mg PO DAILY cap 06/03/21 03
[2022-02-02 17:14] VITALS: BP 108/79; PULSE 91; RESP 20; TEMP 37.2
== END 2022-02-02 17:16 | disposition home or self-care (01) ==
PROVIDERS: Emergency Provider Nurse Practitioner Family; PCP Family Medicine
DX: T78.40XA Allergy, unspecified, initial encounter (principal); J44.9 Chronic obstructive pulmonary disease, unspecified; F41.8 Other specified anxiety disorders; E11.9 Type 2 diabetes mellitus without complications; E78.5 Hyperlipidemia, unspecified; I10 Essential (primary) hypertension; Z87.891 Personal history of nicotine dependence; Z79.899 Other long term (current) drug therapy
CPT/HCPCS: 96372; 99213; G0463

== ENCOUNTER 2022-03-26 10:56 | Emergency (ER) | payer MEDICARE, MEDICAID, SELFPAY ==
--- NOTE | 2022-03-26 12:08 | HMH.EDUTC ---
[facility] Disposition Clinical Impression: COPD exacerbation Acute bronchitis Qualifiers: Bronchitis organism: unspecified organism Qualified Code(s): J20.9 - Acute bronchitis, unspecified Disposition: Home, Self-Care Condition on Discharge: Good Instructions: Acute Bronchitis, DI for Acute Bronchitis Additional Instructions: Drink plenty of fluids. Take tylenol or ibuprofen for pain or fever. Take the medications as directed. Follow up with your regular doctor. GO TO THE ER FOR ANY WORSENING SYMPTOMS The cough medication (promethazine dm) will make you drowsy, so don't drive or operate heavy machinery after taking it. Prescriptions: Promethazine/Dextromethorphan [Promethazine-Dm Syrup] 5 ml PO Q6HP PRN #240 ml PRN Reason: Cough Transmission Status: Received by [facility] Azithromycin [Z-Paul 250mg Tab*] 250 mg PO UD DOSE PK #6 tab Transmission Status: Received by [facility] Referrals: Malachi Byrd MD [Primary Care Provider] - Time of Disposition: 12:37 Medical Decision Making - Medical Records Medical records reviewed: No: I reviewed the patient's medical records. - Nader Inquiry Pt receiving controlled substance: No Vital Signs: 03/26/22 12:15 03/26/22 12:47 Temperature 98.2 F 98.2 F Temperature Source Oral Pulse Rate 77 Pulse Rate [Left Radial] 77 Respiratory Rate 19 19 Blood Pressure 151/76 H Blood Pressure [Right Arm] 151/76 H Blood Pressure Mean [Right Arm] 101 02 Sat by Pulse Oximetry 95 - Lab Data Lab Results 03/26/22 12:38: Chlamy pneumoniae PCR Not detected, Adenovirus (PCR) Not detected, B. pertussis DNA (PCR) Not detected, Coronavirus OC43 (PCR) Not detected, Coronavirus HKU1 (PCR) Not detected, Coronavirus 229E (PCR) Not detected, SARS-CoV-2 (PCR) Not detected, Coronavirus NL63 (PCR) Not detected, Human Metapneumovir PCR Not detected, Influenza A (H1) PCR Not detected, Influ A (H1N1/09) PCR Not detected, Influenza A (H3) PCR Not detected, Influenza Type A (PCR) Not detected, Influenza Type B (PCR) Not detected, M. pneumoniae (PCR) Not detected, Parainfluenza 1 (PCR) Not detected, Parainfluenza 2 (PCR) Not detected, Parainfluenza 3 (PCR) Not detected, Parainfluenza 4 (PCR) Not detected, RSV (PCR) Not detected, Entero/Rhino (PCR) Detected A [facility] HPI - General Stated complaint: cough, congestion Time Seen by Provider: 03/26/22 12:08 - History of Present Illness Provider Complaint: She c/o chest congestion and sinus congestion for the past 3 days. She denies any fever and chills. She has had an intermittent headache and body aches also. She denies any shortness of breath, but she has a cough that seems to be worse when she lies down. She denies any chest pain. - Related Data Home Medications Medication Instructions Recorded Confirmed clonazepam 0.5 mg tablet 0.5 mg PO BID tab 11/27/17 03/03/22 aspirin 81 mg tablet,delayed 81 mg PO DAILY 12/14/20 03/03/22 release celecoxib 200 mg capsule 200 mg PO BID cap 12/14/20 03/03/22 metformin 1,000 mg tablet 1,000 mg PO DAILY tab 12/14/20 03/03/22 amitriptyline 50 mg tablet 50 mg PO DAILY 06/03/21 03/03/22 duloxetine 60 mg capsule,delayed 60 mg PO DAILY cap 06/03/21 03/03/22 release magnesium 30 mg tablet 30 mg PO DAILY 06/03/21 03/03/22 omeprazole 40 mg capsule,delayed 40 mg PO DAILY cap 06/03/21 03/03/22 release vitamin B complex and vitamin C 1 cap PO DAILY 06/03/21 03/03/22 no.20-folic acid 1 mg capsule duloxetine 30 mg capsule,delayed 30 mg PO cap 07/07/21 03/03/22 release albuterol sulfate 90 mcg/actuation 2 inh INHALATION g 10/06/21 03/03/22 aerosol inhaler furosemide 40 mg tablet 40 mg PO tab 10/06/21 03/03/22 Previous Rx's Medication Instructions Recorded gabapentin 800 mg tablet 800 mg PO TID 30 Days #90 tab 12/14/20 Famotidine [Pepcid 20mg Tablet] 20 mg PO BID #28 tab 02/02/22 hydrOXYzine pamoate [Vistaril 25mg 25 mg PO Q6HP PRN #30 cap 02/02/22
[2022-03-26 12:15] VITALS: BP 151/76; PULSE 77; RESP 19; TEMP 36.8; O2SAT 95; BMI 30.4
[2022-03-26 12:45] LABS: Adenovirus,PCR Not Detected (NotDetected); Bordetella Pertussis Not Detected (NotDetected); Chlamydophila Pneumoniae, PCR Not Detected (NotDetected); Coronavirus 19, PCR Not Detected (NotDetected); Coronavirus 229E Not Detected (NotDetected); Coronavirus NL63 Not Detected (NotDetected); Coronavirus OC43 Not Detected (NotDetected); Coronovirus HKU1,PCR Not Detected (NotDetected); Human Metapneumovirus Not Detected (NotDetected); Influenza A, PCR Not Detected (NotDetected); Influenza AH1, 2009 Not Detected (NotDetected); Influenza AH1, PCR Not Detected (NotDetected); Influenza AH3,PCR Not Detected (NotDetected); Influenza B, PCR Not Detected (NotDetected); Mycoplasma Pneumoniae, PCR Not Detected (NotDetected); Parainfluenza 1, PCR Not Detected (NotDetected); Parainfluenza 2, PCR Not Detected (NotDetected); Parainfluenza 3, PCR Not Detected (NotDetected); Parainfluenza 4, PCR Not Detected (NotDetected); Respiratory Syncytial Virus Not Detected (NotDetected)
[2022-03-26 12:47] VITALS: BP 151/76; PULSE 77; RESP 19; TEMP 36.8
[2022-03-26 17:00] LABS: Rhinovirus/Enterovirus Detected (NotDetected)
== END 2022-03-26 12:51 | disposition home or self-care (01) ==
PROVIDERS: Emergency Provider Nurse Practitioner Family; PCP Family Medicine
DX: J20.9 Acute bronchitis, unspecified (principal); J44.1 Chronic obstructive pulmonary disease with (acute) exacerbation; R51.9 Headache, unspecified; M79.10 Myalgia, unspecified site; Z20.822 Contact with and (suspected) exposure to COVID-19; I10 Essential (primary) hypertension; I25.10 Atherosclerotic heart disease of native coronary artery without angina pectoris; E11.9 Type 2 diabetes mellitus without complications; M19.90 Unspecified osteoarthritis, unspecified site; F32.A Depression, unspecified; F41.9 Anxiety disorder, unspecified; Z79.51 Long term (current) use of inhaled steroids; Z79.52 Long term (current) use of systemic steroids; Z79.82 Long term (current) use of aspirin; Z79.84 Long term (current) use of oral hypoglycemic drugs; Z79.899 Other long term (current) drug therapy; Z88.0 Allergy status to penicillin; Z88.1 Allergy status to other antibiotic agents; Z88.3 Allergy status to other anti-infective agents; Z88.8 Allergy status to other drugs, medicaments and biological substances; Z87.891 Personal history of nicotine dependence
CPT/HCPCS: 87581; 87632; 87798; 99213; C9803; G0463; U0003; U0005

== ENCOUNTER → 2022-06-14 17:14 | Outpatient (CLI) | payer MEDICARE, MEDICAID, SELFPAY ==
[2022-06-14 15:59] LABS: Chloride 102 mmol/L (98-107); Potassium 3.7 mmoL/L (3.5-5.1); Sodium 139 mmol/L (136-145)
[2022-06-14 16:01] LABS: Blood Urea Nitrogen 15 mg/dl (7-17); Estimated Glomerular Filt Rate 56 ml/min (>60); GFR (African American) 68 ML/MIN (>60)
[2022-06-14 16:02] LABS: Alanine Aminotransferase 15 U/L (12-78); Albumin Level 4.5 g/dl (3.5-5.0); Albumin/Globulin Ratio 1.7 (1.1-1.8); Alkaline Phosphatase 138 U/L (38-126); Anion Gap 13.7 mEq/L (5-15); Aspartate Amino Transferase 27 U/L (14-36); Bilirubin,Total 0.3 mg/dl (0.2-1.3); Carbon Dioxide 27 mmol/L (22.0-30.0); Cholesterol 127 mg/dl (140-200); Globulin 2.7 g/dL (1.3-3.2); Total Protein,Serum 7.2 g/dl (6.3-8.2); Triglycerides 105 mg/dl (30-150); VLDL Cholesterol 21 mg/dL (0-40)
[2022-06-14 16:03] LABS: Calcium 9.8 mg/dl (8.4-10.2); Chol/HDL Ratio 4.4 (1-3.5); Glucose 120 mg/dl (74-100); HDL Cholesterol 29 mg/dl (40-60)
[2022-06-16 10:08] LABS: Direct LDL Cholesterol 82 mg/dL (100-129)
== END ==
PROVIDERS: PCP Family Medicine; Visit Provider Family Medicine
DX: E11.649 Type 2 diabetes mellitus with hypoglycemia without coma; Z79.84 Long term (current) use of oral hypoglycemic drugs
CPT/HCPCS: 80053; 80061; 83036

== ENCOUNTER → 2022-07-04 09:37 | Outpatient (CLI) | payer MEDICARE, MEDICAID, SELFPAY ==
[2022-07-04 10:25] VITALS: PULSE 76; PULSE 82
--- NOTE | 2022-07-04 11:13 | CT_ITS ---
FINAL REPORT CLINICAL HISTORY: lung cancer screening COMPARISON: October 02, 2020 FINDINGS: Low-Dose Chest CT CTDI vol (mGy): 2.9 DLP (mGy-cm): 92.99 Axial images were obtained from the lung apex to the mid abdomen by computed tomography. Low-dose protocol was utilized. FINDINGS: CHEST: There is no axillary adenopathy. There is no hilar or mediastinal adenopathy. The heart is proper size. There is no pericardial or pleural effusion. Limited images of the upper abdomen are unremarkable. Lung window images demonstrate a stable 3 mm nodule in the posterior right upper lobe on image 30. There is a new 3 mm nodule in the lateral right upper lobe on image 32. A calcified granuloma is seen in the right middle lobe. IMPRESSION: Lung RADS category 2. Recommend 12 month follow-up low-dose chest CT. Reviewed, Interpreted and Dictated by Avtar Alcazar III, MD Transcribed by Louis Navarro Authenticated and [facility]
== END ==
PROVIDERS: PCP Family Medicine; Visit Provider Internal Medicine Pulmonary Disease
DX: Z87.891 Personal history of nicotine dependence (principal); Z12.2 Encounter for screening for malignant neoplasm of respiratory organs; R06.09 Other forms of dyspnea
CPT/HCPCS: 71271; 94060; 94727; 94729

== ENCOUNTER → 2023-01-20 14:34 | Outpatient (CLI) | payer MEDICARE, MEDICAID, SELFPAY ==
[2023-01-20 13:39] LABS: Basophils # 0.1 K/mm3 (0-0.2); Basophils % 1.6 % (0.1-2.0); Eosinophils # 0.3 K/mm3 (0.0-0.4); Eosinophils % 3.5 % (0.1-12.0); Hematocrit 43.5 % (37.0-47.0); Hemoglobin 14.7 g/dL (12.2-16.2); Lymphocytes # 3.3 K/mm3 (0.7-4.5); Lymphocytes % 41.5 % (10-50); Mean Corpuscular HGB Conc 33.8 g/dL (31.8-35.4); Mean Corpuscular Hemoglobin 28.5 pg (27.0-31.2); Mean Corpuscular Volume 84.4 fl (81-99); Mean Platelet Volume 8.5 fl (7.4-10.4); Monocytes # 0.6 K/mm3 (0.1-1.0); Monocytes % 7.1 % (1.7-9.3); Neutrophils # 3.7 K/mm3 (1.8-7.8); Neutrophils % 46.3 % (37.0-80.0); Platelet Count 355 K/mm3 (142-424); Red Blood Count 5.16 M/mm3 (4.20-5.40); Red Cell Distribution Width 14.3 % (11.5-17.5); White Blood Count 7.9 K/mm3 (4.8-10.8)
[2023-01-20 13:47] LABS: Alanine Aminotransferase 20 U/L (12-78); Albumin Level 4.6 g/dl (3.5-5.0); Albumin/Globulin Ratio 1.7 (1.1-1.8); Alkaline Phosphatase 126 U/L (38-126); Anion Gap 13.6 mEq/L (5-15); Aspartate Amino Transferase 27 U/L (14-36); Bilirubin,Direct 0.4 mg/dl (0.0-0.4); Bilirubin,Indirect 0.3 mg/dL (0.0-0.9); Bilirubin,Total 0.7 mg/dl (0.2-1.3); Bilirubin,Unconjugated 0.4 mg/dL (0.0-1.1); Blood Urea Nitrogen 18 mg/dl (7-17); Calcium 9.1 mg/dl (8.4-10.2); Carbon Dioxide 31 mmol/L (22.0-30.0); Chloride 97 mmol/L (98-107); Estimated Glomerular Filt Rate 63 ml/min (>60); GFR (African American) 76 ML/MIN (>60); Globulin 2.7 g/dL (1.3-3.2); Glucose 113 mg/dl (74-100); Phosphorous 4.4 mg/dl (2.5-4.5); Potassium 4.6 mmoL/L (3.5-5.1); Sodium 137 mmol/L (136-145); Total Protein,Serum 7.3 g/dl (6.3-8.2)
== END ==
LOC: LAB.DROPOF 14:35
PROVIDERS: PCP Family Medicine; Visit Provider Family Medicine
DX: E11.42 Type 2 diabetes mellitus with diabetic polyneuropathy (principal); Z79.84 Long term (current) use of oral hypoglycemic drugs; Z79.899 Other long term (current) drug therapy
CPT/HCPCS: 80053; 80069; 80076; 83036; 85025

== ENCOUNTER → 2023-01-26 11:29 | Outpatient (CLI) | payer MEDICARE, MEDICAID, SELFPAY ==
[2023-01-26 12:31] LABS: Basophils # 0.1 K/mm3 (0-0.2); Basophils % 1.5 % (0.1-2.0); Eosinophils # 0.3 K/mm3 (0.0-0.4); Eosinophils % 3.8 % (0.1-12.0); Hematocrit 40.5 % (37.0-47.0); Hemoglobin 13.5 g/dL (12.2-16.2); Lymphocytes # 3.1 K/mm3 (0.7-4.5); Lymphocytes % 42.1 % (10-50); Mean Corpuscular HGB Conc 33.3 g/dL (31.8-35.4); Mean Corpuscular Hemoglobin 28.3 pg (27.0-31.2); Mean Platelet Volume 7.5 fl (7.4-10.4); Monocytes # 0.5 K/mm3 (0.1-1.0); Monocytes % 6.2 % (1.7-9.3); Neutrophils # 3.4 K/mm3 (1.8-7.8); Neutrophils % 46.4 % (37.0-80.0); Platelet Count 338 K/mm3 (142-424); Red Blood Count 4.77 M/mm3 (4.20-5.40); Red Cell Distribution Width 14.1 % (11.5-17.5); White Blood Count 7.4 K/mm3 (4.8-10.8)
[2023-01-26 12:46] LABS: Hemoglobin A1C 6.2 % (4.0-6.0)
[2023-01-26 12:54] LABS: Alanine Aminotransferase 17 U/L (12-78); Albumin/Globulin Ratio 1.6 (1.1-1.8); Alkaline Phosphatase 106 U/L (38-126); Anion Gap 10.6 mEq/L (5-15); Aspartate Amino Transferase 21 U/L (14-36); Bilirubin,Total 0.4 mg/dl (0.2-1.3); Blood Urea Nitrogen 13 mg/dl (7-17); Calcium 9.1 mg/dl (8.4-10.2); Carbon Dioxide 27 mmol/L (22.0-30.0); Chloride 103 mmol/L (98-107); Chol/HDL Ratio 5.2 (1-3.5); Cholesterol 140 mg/dl (140-200); Estimated Glomerular Filt Rate 72 ml/min (>60); GFR (African American) 87 ML/MIN (>60); Globulin 2.5 g/dL (1.3-3.2); Glucose 109 mg/dl (74-100); HDL Cholesterol 27 mg/dl (40-60); Potassium 4.6 mmoL/L (3.5-5.1); Sodium 136 mmol/L (136-145); Total Protein,Serum 6.5 g/dl (6.3-8.2)
[2023-01-26 12:58] LABS: Triglycerides 416 mg/dl (30-150)
[2023-01-26 13:06] LABS: Direct LDL Cholesterol 52.49 mg/dL (100-129)
== END ==
PROVIDERS: PCP Family Medicine; Visit Provider Family Medicine
DX: E78.2 Mixed hyperlipidemia; R53.83 Other fatigue; E11.9 Type 2 diabetes mellitus without complications
CPT/HCPCS: 36415; 80053; 80061; 83036; 84443; 85025

== ENCOUNTER → 2023-02-27 12:31 | Outpatient (CLI) | payer MEDICARE, MEDICAID, SELFPAY ==
--- NOTE | 2023-02-27 12:31 | MM_ITS ---
PROCEDURE INFORMATION: Exam: MG Bilateral Screening 3D Mammography Exam date and time: 02/27/2023 12:42 PM Age: 62 years old Clinical indication: Screening. Her mother had breast cancer. TECHNIQUE: Imaging protocol: Bilateral Screening tomosynthesis and 2D mammography including computer-aided detection (CAD) when performed. COMPARISON: 1. MG MM DIG SCREENING MAMM BI W/CAD 07/15/2021 11:15 AM 2. MG MM DIG SCREENING MAMM BI W/CAD 07/10/2020 9:51 AM 3. MG SCBI MM Dig screening mamm BI w/CAD 09/07/2018 9:07 AM 4. MG DMDBAV DIG MAMM-DX [place] W/AVWS W/CAD 09/22/2017 2:23 PM FINDINGS: MAMMOGRAPHY: Breast composition: The breasts are heterogeneously dense, which may obscure small masses. Mass: None. Architectural distortion: None. Calcifications: No suspicious calcifications. Asymmetric density: None. Skin thickening: None. Axillary adenopathy: None. Other: Right biopsy clips. IMPRESSION: No mammographic evidence of malignancy. Annual screening is recommended unless otherwise clinically indicated. ASSESSMENT: BI-RADS Category 2: Benign
== END ==
PROVIDERS: PCP Family Medicine; Visit Provider Family Medicine
DX: Z12.31 Encounter for screening mammogram for malignant neoplasm of breast (principal)
CPT/HCPCS: 77063; 77067

== ENCOUNTER 2023-05-15 17:27 | Emergency (ER) | payer MEDICARE, MEDICAID, SELFPAY ==
[2023-05-15 17:28] VITALS: BP 107/70; PULSE 90; RESP 18; TEMP 36.8; O2SAT 95; BMI 31.9
--- NOTE | 2023-05-15 17:46 | EXP.UTC ---
Discharge Plan Disposition Patient Disposition: Home, Self-Care Condition: Good Prescriptions Prescriptions: New cefdinir 300 mg capsule 300 mg PO BID Qty: 20 0RF No Action magnesium 30 mg tablet 30 mg PO DAILY B complex with C 20-folic acid 1 mg capsule 1 cap PO DAILY omeprazole 40 mg capsule,delayed release(DR/EC) See Rx Instructions .ROUTE .COMPLEX Qty: 90 3RF Dose Instruction: TAKE 1 CAPSULE BY MOUTH ONCE DAILY NEEDED FOR ACID REFLUX Rx Instructions: TAKE 1 CAPSULE BY MOUTH ONCE DAILY NEEDED FOR ACID REFLUX celecoxib 200 mg capsule See Rx Instructions .ROUTE .COMPLEX Qty: 90 0RF Dose Instruction: TAKE 1 CAPSULE BY MOUTH DAILY NEEDED FOR ANTI-INFLAMMATORY Rx Instructions: TAKE 1 CAPSULE BY MOUTH DAILY NEEDED FOR ANTI-INFLAMMATORY fluticasone propionate 50 mcg/actuation spray,suspension See Rx Instructions .ROUTE .COMPLEX Qty: 16 10RF Dose Instruction: USE 2 SPRAYS IN EACH NOSTRIL ONCE A DAY SHAKE WELL Rx Instructions: USE 2 SPRAYS IN EACH NOSTRIL ONCE A DAY SHAKE WELL albuterol sulfate [ProAir HFA] 90 mcg/actuation HFA aerosol inhaler 2 inh INHALATION Q6H PRN (Reason: shortness of breath or wheezing) Qty: 8.5 10RF cyclobenzaprine 10 mg tablet 10 mg PO BID PRN (Reason: muscle spasm) Qty: 30 3RF aspirin [Adult Low Dose Aspirin] 81 mg tablet,delayed release (DR/EC) 81 mg PO DAILY losartan 50 mg tablet 50 mg PO DAILY Qty: 90 3RF atorvastatin [Lipitor] 10 mg tablet 10 mg PO QDAY Qty: 90 3RF clonazepam 0.5 mg tablet 0.5 mg PO BID Qty: 60 3RF gabapentin 800 mg tablet 800 mg PO TID 30 Days Qty: 90 5RF ondansetron 4 mg tablet,disintegrating See Rx Instructions .ROUTE .COMPLEX Qty: 90 0RF Dose Instruction: DISSOLVE 1 TABLET IN MOUTH EVERY 8 HOURS NEEDED FOR NAUSEA AND VOMITING Rx Instructions: DISSOLVE 1 TABLET IN MOUTH EVERY 8 HOURS NEEDED FOR NAUSEA AND VOMITING amitriptyline 75 mg tablet 75 mg PO HS Qty: 90 3RF levocetirizine [Xyzal] 5 mg tablet 5 mg PO DAILY Qty: 90 3RF potassium chloride 10 mEq tablet,ER particles/crystals See Rx Instructions .ROUTE .COMPLEX Qty: 90 0RF Dose Instruction: TAKE 1 TABLET BY MOUTH ONCE DAILY WITH FOOD Rx Instructions: TAKE 1 TABLET BY MOUTH ONCE DAILY WITH FOOD furosemide 40 mg tablet See Rx Instructions .ROUTE .COMPLEX Qty: 90 0RF Dose Instruction: TAKE 1 TABLET BY MOUTH DAILY NEEDED FOR EDEMA Rx Instructions: TAKE 1 TABLET BY MOUTH DAILY NEEDED FOR EDEMA duloxetine 60 mg capsule,delayed release(DR/EC) See Rx Instructions .ROUTE .COMPLEX Qty: 90 2RF Dose Instruction: TAKE 1 CAPSULE BY MOUTH DAILY Rx Instructions: TAKE 1 CAPSULE BY MOUTH DAILY bisoprolol fumarate 5 mg tablet See Rx Instructions .ROUTE .COMPLEX Qty: 90 2RF Dose Instruction: TAKE 1 TABLET BY MOUTH ONCE DAILY FOR BLOOD PRESSURE Rx Instructions: TAKE 1 TABLET BY MOUTH ONCE DAILY FOR BLOOD PRESSURE hydroxyzine pamoate 25 MG capsule 25 mg PO Q6HP PRN (Reason: Itching) Qty: 30 0RF famotidine 20 MG tablet 20 mg PO BID Qty: 28 0RF Referrals Follow up/Referrals: Provider,Referral, MD [Primary Care Provider] - See instructions Activity Restrictions/Add. Instructions Additional Instructions/Restrictions: Take tylenol for pain or fever. Take the medications as directed. Follow up with your regular doctor. GO TO THE ER FOR ANY WORSENING SYMPTOMS Clinical Impressions Clinical Impression: Otitis media Instructions Patient Instructions: Middle Ear Infection Discharge ED Provider: Rene Esquivel [facility] [place] General Stated complaint: falling Time Seen by Provider: 05/15/23 17:46 History of Present Illness Provider Complaint: She states that she has had dizziness and left ear pain for the past 3 days. This has caused her to fall several times. Rela
[2023-05-15 18:21] VITALS: BP 107/70; PULSE 90; RESP 18; TEMP 36.8; O2SAT 95
== END 2023-05-15 18:22 | disposition home or self-care (01) ==
PROVIDERS: Emergency Provider Nurse Practitioner Family
DX: H66.93 Otitis media, unspecified, bilateral (principal); R42 Dizziness and giddiness; J98.4 Other disorders of lung; E78.5 Hyperlipidemia, unspecified; Z87.891 Personal history of nicotine dependence; W18.30XA Fall on same level, unspecified, initial encounter
CPT/HCPCS: 99212; 99214; G0463

== ENCOUNTER 2023-07-12 13:58 | Emergency (ER) | payer MEDICARE, MEDICAID, SELFPAY ==
--- NOTE | 2023-07-12 14:03 | XR_ITS ---
FINAL REPORT CLINICAL HISTORY: FALL, bruising swelling left ankle COMPARISON: None FINDINGS: LEFT ANKLE: Three views of the left ankle were obtained. There is no acute fracture or dislocation. There is mild degenerative change. There is chronic calcification adjacent to the medial malleolus. Soft tissue swelling is noted. There are small calcaneal spurs. IMPRESSION: Degenerative changes and soft tissue swelling with acute bony abnormality. Reviewed, Interpreted and Dictated by Avtar Alcazar III, MD Transcribed by Patsy Judd Authenticated and [facility]
[2023-07-12 14:30] VITALS: BP 113/86; PULSE 85; RESP 18; TEMP 36.6; O2SAT 98; BMI 31.3
--- NOTE | 2023-07-12 14:39 | EXP.UTC ---
Discharge Plan Disposition Patient Disposition: Home, Self-Care Condition: Good Prescriptions Prescriptions: No Action magnesium 30 mg tablet 30 mg PO DAILY B complex with C 20-folic acid 1 mg capsule 1 cap PO DAILY omeprazole 40 mg capsule,delayed release(DR/EC) See Rx Instructions .ROUTE .COMPLEX Qty: 90 3RF Dose Instruction: TAKE 1 CAPSULE BY MOUTH ONCE DAILY NEEDED FOR ACID REFLUX Rx Instructions: TAKE 1 CAPSULE BY MOUTH ONCE DAILY NEEDED FOR ACID REFLUX celecoxib 200 mg capsule See Rx Instructions .ROUTE .COMPLEX Qty: 90 0RF Dose Instruction: TAKE 1 CAPSULE BY MOUTH DAILY NEEDED FOR ANTI-INFLAMMATORY Rx Instructions: TAKE 1 CAPSULE BY MOUTH DAILY NEEDED FOR ANTI-INFLAMMATORY fluticasone propionate 50 mcg/actuation spray,suspension See Rx Instructions .ROUTE .COMPLEX Qty: 16 10RF Dose Instruction: USE 2 SPRAYS IN EACH NOSTRIL ONCE A DAY SHAKE WELL Rx Instructions: USE 2 SPRAYS IN EACH NOSTRIL ONCE A DAY SHAKE WELL albuterol sulfate [ProAir HFA] 90 mcg/actuation HFA aerosol inhaler 2 inh INHALATION Q6H PRN (Reason: shortness of breath or wheezing) Qty: 8.5 10RF aspirin [Adult Low Dose Aspirin] 81 mg tablet,delayed release (DR/EC) 81 mg PO DAILY atorvastatin [Lipitor] 10 mg tablet 10 mg PO QDAY Qty: 90 3RF clonazepam 0.5 mg tablet 0.5 mg PO BID Qty: 60 2RF gabapentin 800 mg tablet 800 mg PO TID 30 Days Qty: 90 2RF ondansetron 4 mg tablet,disintegrating See Rx Instructions .ROUTE .COMPLEX Qty: 90 0RF Dose Instruction: DISSOLVE 1 TABLET IN MOUTH EVERY 8 HOURS NEEDED FOR NAUSEA AND VOMITING Rx Instructions: DISSOLVE 1 TABLET IN MOUTH EVERY 8 HOURS NEEDED FOR NAUSEA AND VOMITING amitriptyline 75 mg tablet 75 mg PO HS Qty: 90 3RF levocetirizine [Xyzal] 5 mg tablet 5 mg PO DAILY Qty: 90 3RF potassium chloride 10 mEq tablet,ER particles/crystals See Rx Instructions .ROUTE .COMPLEX Qty: 90 0RF Dose Instruction: TAKE 1 TABLET BY MOUTH ONCE DAILY WITH FOOD Rx Instructions: TAKE 1 TABLET BY MOUTH ONCE DAILY WITH FOOD furosemide 40 mg tablet See Rx Instructions .ROUTE .COMPLEX Qty: 90 0RF Dose Instruction: TAKE 1 TABLET BY MOUTH DAILY NEEDED FOR EDEMA Rx Instructions: TAKE 1 TABLET BY MOUTH DAILY NEEDED FOR EDEMA duloxetine 60 mg capsule,delayed release(DR/EC) See Rx Instructions .ROUTE .COMPLEX Qty: 90 2RF Dose Instruction: TAKE 1 CAPSULE BY MOUTH DAILY Rx Instructions: TAKE 1 CAPSULE BY MOUTH DAILY bisoprolol fumarate 5 mg tablet See Rx Instructions .ROUTE .COMPLEX Qty: 90 2RF Dose Instruction: TAKE 1 TABLET BY MOUTH ONCE DAILY FOR BLOOD PRESSURE Rx Instructions: TAKE 1 TABLET BY MOUTH ONCE DAILY FOR BLOOD PRESSURE losartan 50 mg tablet See Rx Instructions .ROUTE .COMPLEX Qty: 90 2RF Dose Instruction: TAKE 1 TABLET BY MOUTH DAILY Rx Instructions: TAKE 1 TABLET BY MOUTH DAILY hydroxyzine pamoate 25 MG capsule 25 mg PO Q6HP PRN (Reason: Itching) Qty: 30 0RF famotidine 20 MG tablet 20 mg PO BID Qty: 28 0RF Referrals Follow up/Referrals: Nazario Krause APRN [Primary Care Provider] - See instructions Martha Quevedo APRN [Nurse Practitioner] - See instructions Indio Miranda DO [Staff Physician] - See instructions Activity Restrictions/Add. Instructions Additional Instructions/Restrictions: *weight bearing as tolerated *RICE, Rest the extremity, Ice 15-20 minutes 3-4 times daily, Compress- wear the freddy wrap as discussed as much as possible to help reduce swelling and pain, Elevate the extremity when at rest *Walking boot is for support and help control swelling, use it except in the shower. Be sure that is not to tight but not to loose either *Elevate when resting? *Ibuprofen 600-800mg every 6-8 hours as needed for pain an inflammation. If need somethin
[2023-07-12 15:34] VITALS: BP 113/86; PULSE 85; RESP 18; TEMP 36.6; O2SAT 98
== END 2023-07-12 15:55 | disposition home or self-care (01) ==
PROVIDERS: Emergency Provider Nurse Practitioner; PCP Nurse Practitioner Family
DX: S93.402A Sprain of unspecified ligament of left ankle, initial encounter (principal); E78.5 Hyperlipidemia, unspecified; J45.909 Unspecified asthma, uncomplicated; Z87.891 Personal history of nicotine dependence; W01.10XA Fall on same level from slipping, tripping and stumbling with subsequent striking against unspecified object, initial encounter
CPT/HCPCS: 73610; 99212; 99214; G0463

== ENCOUNTER → 2023-07-20 14:21 | Outpatient (CLI) | payer MEDICARE, MEDICAID, SELFPAY ==
--- NOTE | 2023-07-20 14:21 | MR_ITS ---
PROCEDURE INFORMATION: Exam: MR Cervical Spine Without Contrast Exam date and time: 07/20/2023 3:17 PM Age: 62 years old Clinical indication: Numbness; Additional info: HX fracture, lue numbness TECHNIQUE: Imaging protocol: Magnetic resonance imaging of the cervical spine without contrast. COMPARISON: CT LUNG SCREENING 07/04/2022 11:15 AM FINDINGS: Patient motion. Non-specific straightening. Chronic loss of height involving C7. No acute compression fracture. Multilevel disc desiccation. Negative for discitis/osteomyelitis. No epidural fluid collection. C2-C3: No significant central or foraminal stenosis. C3-C4: No significant central or foraminal stenosis. C4-C5: Mild disc osteophyte complex with uncinate spurring greater on the left. There is mild central canal stenosis without significant foraminal stenosis. C5-C6: [id number] disc osteophyte complex with bilateral uncinate spurring. There is moderate central canal stenosis and moderate to severe bilateral foraminal stenosis. C6-C7: No significant central or foraminal stenosis. C7-T1: Uncinate spurring contributes to mild bilateral foraminal stenosis. No central canal stenosis. IMPRESSION: 1. Patient motion. 2. No acute abnormality involving the cervical spine. 3. Degenerative change most significant at C5-C6 where there is moderate central canal stenosis and moderate to severe bilateral foraminal stenosis.
== END ==
PROVIDERS: PCP Nurse Practitioner Family; Visit Provider Nurse Practitioner Family
DX: R20.0 Anesthesia of skin (principal); S12.9XXA Fracture of neck, unspecified, initial encounter; M54.50 Low back pain, unspecified; Y99.9 Unspecified external cause status
CPT/HCPCS: 72141; 76376

== ENCOUNTER → 2023-08-04 10:41 | Outpatient (POV) | payer MEDICARE, MEDICAID, SELFPAY ==
--- NOTE | 2023-08-04 11:40 | EXP.PAIN.OV ---
HPI Data of Consult Patient: new to practice Consult date: 08/04/23 Requesting Physician: Yoav Escobedo CRNA Primary Care Provider: Nazario Krause APRN Consult Narrative History of present illness: Ms. Sagastume is a 62 year old female who comes our office today with complaint of chronic cervical neck pain as well as left arm radicular symptoms. Patient's cervical MRI does show degenerative disc disease cervical spine multilevels. Cervical radiculopathy left arm. Patient also complains of low back pain she describes as constant, dull, aching. However, her cervical symptoms take precedence today. Patient is currently being managed medically from her PCP. Clonazepam 0.5 mg 1 p.o. twice daily. Gabapentin 800 mg 1 p.o. 3 times daily. Patient states these medications do help with her symptoms. However, the left arm radicular symptoms to the hand continue. She rates her pain 8/10. Patient's Nader #[id number] has been reviewed and appropriate. Patient is already scheduled to begin physical therapy for the cervical spine and radicular symptoms. She will begin this next week. I recommend patient follows up with us following physical therapy. I discussed in detail with her regarding potential need for cervical epidural steroid injection. Patient cervical MRI does show degenerative disc multilevel cervical spine. C5-6 spinal stenosis. CC: Yoav Escobedo CRNA [facility] Disclaimer: The information contained in this section may have been updated after the patient was seen, as this information can be updated by other users. Medical History (Updated 08/04/23 @ 11:48 by Yoav Escobedo CRNA) Abnormal PFT Bronchitis Cervical spine fracture COVID-19 virus test result unknown Dyspnea on exertion Encounter for laboratory testing for COVID-19 virus HLD (hyperlipidemia) Left upper extremity numbness Restrictive lung disease Smoking greater than 30 pack years Strep throat Tobacco abuse Tobacco abuse counseling Surgical History History of breast biopsy History of cardiac cath History of colonoscopy History of total hysterectomy Family History Other Coronary artery disease Heart attack Social History Smoking Status: Former smoker alcohol intake: never substance use type: denies use current occupational status: disabled Travel in the last 8 weeks: None household members: none housing: apartment Meds Home Medications and Allergies Home Medications Medication Instructions Recorded Confirmed Type aspirin 81 mg tablet,delayed 81 mg PO DAILY CAD 12/14/20 07/05/23 History release (Adult Low Dose Aspirin) magnesium 30 mg tablet 30 mg PO DAILY 06/03/21 07/05/23 History vitamin B complex and vitamin C 1 cap PO DAILY 06/03/21 07/05/23 History no.20-folic acid 1 mg capsule famotidine 20 mg tablet 20 mg PO BID #28 tabs 02/02/22 07/05/23 Rx hydroxyzine pamoate 25 mg capsule 25 mg PO Q6HP PRN Itching #30 caps 02/02/22 07/05/23 Rx ondansetron 4 mg disintegrating See Rx Instructions .Route 03/22/22 07/05/23 Rx tablet .COMPLEX #90 tabs atorvastatin 10 mg tablet (Lipitor) 10 mg PO QDAY Cholesterol #90 tabs 10/25/22 07/05/23 Rx amitriptyline 75 mg tablet 75 mg PO HS #90 tabs 01/30/23 07/05/23 Rx levocetirizine 5 mg tablet (Xyzal) 5 mg PO DAILY #90 tabs 01/30/23 07/05/23 Rx furosemide 40 mg tablet See Rx Instructions .Route 03/07/23 07/05/23 Rx .COMPLEX #90 tabs potassium chloride 10 mEq See Rx Instructions .Route 03/07/23 07/05/23 Rx tablet,extended release(part/cryst) .COMPLEX #90 tabs bisoprolol fumarate 5 mg tablet See Rx Instructions .Route 04/10/23 07/05/23 Rx .COMPLEX #90 tabs duloxetine 60 mg capsule,delayed See Rx Instructions .Route 04/10/23 07/05/23 Rx release .COMPLEX #90 caps albuterol sulfate 90 mcg/actuation 2 inh inhalation
[2023-08-04 11:54] VITALS: BP 151/74; PULSE 80; RESP 18; O2SAT 96; BMI 31.6
== END ==
PROVIDERS: PCP Nurse Practitioner Family; Visit Provider Nurse Anesthetist, Certified Registered
DX: M47.22 Other spondylosis with radiculopathy, cervical region (principal)
CPT/HCPCS: 99202; G0463

== ENCOUNTER 2023-08-30 11:00 | Outpatient (RCR) | payer MEDICARE, MEDICAID, SELFPAY ==
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
== END 2023-08-30 12:00 | disposition home or self-care (01) ==
LOC: PT 11:00
PROVIDERS: PCP Nurse Practitioner Family; Visit Provider Nurse Practitioner Family
DX: M48.02 Spinal stenosis, cervical region (principal)
CPT/HCPCS: 97010; 97014; 97035; 97110; 97140; 97163; G0283

== ENCOUNTER → 2023-10-04 14:51 | Outpatient (CLI) | payer MEDICARE, MEDICAID, SELFPAY ==
--- NOTE | 2023-10-04 14:56 | XR_ITS ---
FINAL REPORT CLINICAL HISTORY: ankle pain FINDINGS: Left ankle Three views were obtained. There is no acute fracture or dislocation. The joint spaces appear normal. There is soft tissue swelling about the ankle. IMPRESSION: Soft tissue swelling without acute bony abnormality. Reviewed, Interpreted and Dictated by Meir Ghosh MD Transcribed by Addie Saavedra Authenticated and [facility]
--- NOTE | 2023-10-04 14:56 | XR_ITS ---
FINAL REPORT CLINICAL HISTORY: foot pain FINDINGS: Left foot Three views were obtained. There is no acute fracture or dislocation. The joint spaces appear normal. No soft tissue abnormality is identified. An accessory navicular is noted. IMPRESSION: No acute process. Reviewed, Interpreted and Dictated by Meir Ghosh MD Transcribed by Addie Saavedra Authenticated and [facility]
== END ==
PROVIDERS: PCP Family Medicine; Visit Provider Podiatrist
DX: M79.672 Pain in left foot (principal); M25.472 Effusion, left ankle; M25.572 Pain in left ankle and joints of left foot
CPT/HCPCS: 73610; 73630

== ENCOUNTER → 2023-10-19 06:21 | Outpatient (CLI) | payer MEDICARE, MEDICAID, SELFPAY ==
--- NOTE | 2023-10-19 | CA_ITS ---
APPROVED REPORT Exam: Pharmacologic Technologist: Jackie Jett, Ht: 5 ft 5 in HR: 71 bpm BP: 130/64 mmHg Rhythm: NSR, rightward axis Medical History Medications: Omeprazole,,,,, Potassium Chloride,,,,, Aspirin,,,,, Metformin,,,,, Gabapentin,,,,, Losartan,,,,, Nicotine,,,,, Lipitor,,,,, Albuterol,,,,, Famotidine,,,,, DulOXETINE,,,,, Magnesium,,,,, Cardiac Risk Factors: Hyperlipidemia, Smoking Stress Test Details Test: LEXISCAN HR Resting HR: 73 bpm Max Heart Rate (APMHR): 155 bpm Max HR Achieved: 95 bpm Target HR (85% APMHR): 132 bpm % of APMHR: 61 Recovery HR: 82 bpm BP Resting BP: 130/64 mmHg Max BP: 148/63 mmHg Recovery BP: 140.0/61.0 mmHg ECG Resting ECG: NSR, rightward axis Stress ECG: No significant ST changes Arrhythmia: None Clinical Exercise duration: 04:00 min Highest Stage Achieved: Exercise capacity: 1.0 METs Stress ECG Conclusion During lexiscan pt experinced mild SOA, no CP noted. No arrhythmias noted. No significant ST changes. Conclusion: Unremarkable lexiscan stress. Myoview images reported separately. Test Summary REST . . . . . . . Sitting REST 02:15 . . 73 . 130/ 64 . . Stage 1 01:00 . . 80 . . . . Stage 2 01:00 . . 91 . . . . Stage 3 01:00 . . 91 . 142/ 64 . . Stage 4 01:00 . . 87 . 138/ 63 . Stop exercise at 04:00 RECOVERY 01:00 . . 86 . 148/ 63 . . RECOVERY 02:00 . . 80 . 148/ 63 . . RECOVERY 03:00 . . 81 . 148/ 63 . . RECOVERY 04:00 . . 78 . 140/ 61 . . RECOVERY 05:00 . . 79 . 140/ 61 . . RECOVERY 05:15 . . 85 . 140/ 61 . . Electronically signed by : Jannet Daley MD 10/24/2023 12:37:05
--- NOTE | 2023-10-19 06:25 | NM_ITS ---
APPROVED REPORT Exam: Nuclear Stress Test Indication: chest pain..soa..fatigue..tobacco use Patient Location: Outpatient Stress Tech: Jackie SANON Tech:JULIANA Mendoza RT(R)(N) Ht: 5 ft 5 in Wt: 179 lbs Bra Size: 42dd HR: 73 bpm BP: 130/64 mmHg BSA: 1.89 m2 Rhythm: NSR TID: 1.10 BMI: 29.7 History: chest pain..soa..fatigue..tobacco use Procedure: Patient received 0.4 mg of intravenous Lexiscan, resting heart rate 73 bpm, resting blood pressure 130/64 mmHg, with Lexiscan maximum heart rate achieved was 95 bpm which is 85 % of the maximum predicted heart rate and blood pressure was 148/63 mmHg. With Lexiscan, patient denied any complaint of chest pain. The patient was not able to lay on her abdomen for prone images. Cardiac Stress and Resting SPECT Images: Cardiac Stress and Resting SPECT images were obtained using technetium 99m Myoview 30.8 mCi stress and 10.84 mCi at rest. Technically difficult study. There is significant soft tissue overlap noted on raw images. The patient could not lie on her abdomen. Therefore, prone stress imaging could not be performed. There is also significant GI radiotracer uptake in the GI tract. These findings affect the diagnostic interpretation of the study findings. Resting and stress imaging in supine position demonstrate a medium sized, moderate, reversible perfusion defect in the basal to mid anterior LV wall, the LV apical wall, and the basal inferior LV wall. Gated imaging demonstrates normal global and regional LV systolic function. LVEF is calculated at 69%. Conclusion: Technically difficult study. Significant soft tissue overlap with the cardiac borders. Medium sized, moderate, reversible perfusion defect in the basal to mid anterior LV wall, the LV apical wall, and the basal inferior LV wall. Findings are suggestive of possible reversible ischemia. Gated imaging demonstrates normal global and regional LV systolic function. LVEF is calculated at 69%. Electronically signed by : Jannet Daley MD 10/24/2023 12:43:15
--- NOTE | 2023-10-19 08:27 | CA_ITS ---
APPROVED REPORT EXAM: Comprehensive 2D, Doppler, and color-flow Echocardiogram Window Air Conditioner Installer: Eli Anders CRT Ht: 5 ft 5 in Wt: 198lbs BSA: 1.97 BP: 140/65 mmHg Indications: Shortness of Breath, Peripheral Edema, CAD, Hyperlipidemia, Hypertension/HDD 2D Dimensions Left Atrium 3.93 cm LA Volume 20.00 mL LVOT 1.87 cm (M/F) 1.5-2.5 LA Volume Index 10.20 mL/m2 (M/F) 16-34 EF AP4 62.00 % GL Strain -14.5 % M-Mode Dimensions RVDd 2.99 cm (0.9-2.6) LVDd 4.02 cm (3.5-5.7) Ao Diam 3.53 cm (2.0-3.7) LVDs 2.71 cm (3.5-5.7) IVSd 1.41 cm (0.6-1.1) PWd 0.81 cm (0.6-1.1) EF (Teich) 61.40% FS 32.60% EDV (Teich) 70.80 mL ESV (Teich) 27.30 mL LV Diastology E Decel Time 325 (160-240 msec) E/A Ratio 0.87 MED E' 7.8 (>= 7 cm/sec) MED A' 10.40 cm/s E'/MED E' Ratio 8.13 (<= 14) LAT E' 6.2 (>= 10 cm/sec) LAT A' 10.80 cm/s E/LAT E' Ratio 10.23 (<= 14) Aortic Valve AoV Peak Efren. 148.0 (50-130 cm/s) AO Peak GR. 8.80 mmHg Mitral Valve MV E Max Efren. 63.0 (40-130 cm/s) MV A Velocity 73.0 (40-130 cm/s) E/A Ratio 0.87 MV Decel. Time 325 (160-240 ms) Tricuspid Valve TR P. Velocity 253.00 cm/s RAP Estimate 10.00 mmHg RVSP 35.60 mmHg Left Ventricle The left ventricle is normal size. The left ventricular systolic function is normal. The left ventricular ejection fraction is within the normal range. There is increased LV wall thickness. There is normal LV segmental wall motion. The left ventricular diastolic function is normal. LVEF is 60%. Right Ventricle The right ventricle is normal size. The right ventricular systolic function is normal. Atria The left atrium size is normal. The right atrium size is normal. The interatrial septum is not well-visualized. Aortic Valve The aortic valve is mildly thickened. There is no aortic valvular stenosis. Trace aortic regurgitation. Mitral Valve The mitral valve leaflets are mildly thickened. No evidence of mitral valve stenosis. Trace mitral regurgitation. Tricuspid Valve The tricuspid valve leaflets are thin and pliable. Mild tricuspid regurgitation. RVSP is 20-25 mmHg. Pulmonic Valve The pulmonary valve is normal in structure. Trace pulmonic regurgitation. Great Vessels The aortic root is normal in size. The ascending aorta is not well-visualized. IVC is normal in size and collapses >50% with inspiration. Pericardium There is no pericardial effusion. An epicardial fat pad is noted. Other Information Study Quality: Technically Difficult Conclusion Technically difficult study due to poor acoustic windows. Normal biventricular systolic function. Mild TR. Electronically signed by : Jannet Daley MD 10/25/2023 10:28:27
== END ==
PROVIDERS: PCP Family Medicine; Visit Provider Nurse Practitioner Family
DX: I25.10 Atherosclerotic heart disease of native coronary artery without angina pectoris (principal); R06.00 Dyspnea, unspecified; R06.09 Other forms of dyspnea; R07.9 Chest pain, unspecified; Z87.891 Personal history of nicotine dependence
CPT/HCPCS: 78452; 93017; 93018; 93306; A9502; J2785

== ENCOUNTER 2023-11-10 07:17 | Outpatient (CLI) | payer MEDICARE, MEDICAID, SELFPAY ==
--- NOTE | 2023-11-10 07:18 | MR_ITS ---
FINAL REPORT CLINICAL HISTORY: left ankle sprain, left lateral ankle pain best images possible COMPARISON: None FINDINGS: Multiplanar MR imaging of the left ankle was performed without contrast. There is marked motion seen on all sequences, which limits overall image quality. The bony structures are intact without evidence of fracture, bone bruise or marrow edema. No osteochondral lesion is identified. The ATFL is not well-seen, and cannot be accurately evaluated. However there does appear to be thinning to suggest a partial tear. The remainder of the ligaments are intact. The flexor and extensor tendons are intact. The posterior plantar aponeurosis is intact. No significant joint effusion is seen. The musculature is intact. There is no evidence of soft tissue mass or cyst. IMPRESSION: Marked limitation of overall image quality secondary to motion artifact. ATFL is not well-seen and difficult to evaluate, however there may be a partial tear. Reviewed, Interpreted and Dictated by Avtar Alcazar III, MD Transcribed by Elise Arthur Authenticated and . [facility]
== END 2023-11-10 23:59 ==
LOC: RAD 07:18
PROVIDERS: PCP Family Medicine; Visit Provider Podiatrist
DX: R60.0 Localized edema (principal); S86.312A Strain of muscle(s) and tendon(s) of peroneal muscle group at lower leg level, left leg, initial encounter; S93.402A Sprain of unspecified ligament of left ankle, initial encounter; M25.572 Pain in left ankle and joints of left foot
CPT/HCPCS: 73721

== ENCOUNTER 2023-11-13 07:29 | Day surgery (SDC) | payer MEDICARE, MEDICAID, SELFPAY ==
[2023-11-13] VITALS (13 sets, daily range): BP systolic 132–166; BP diastolic 76–91; PULSE 65–80; RESP 17–19; TEMP 36.6; O2SAT 92–97; BMI 33.3
--- NOTE | 2023-11-13 07:19 | IR_ITS ---
APPROVED REPORT Patient Location: Outpatient Senior Data Quality Analyst: JULIANA Duran RT (R) PROCEDURES Left heart catheterization Left ventriculogram Selective coronary angiogram Drug-eluting stent deployment to the proximal mid and distal dominant right coronary in a contiguous manner Drug-eluting stent deployment to the mid LAD Drug-eluting stent deployment to the proximal ramus intermedius INDICATION Coronary artery disease, Angina pectoris, High risk abnormal Myoview, Informed consent was obtained prior to the procedure. COMPLICATIONS None Estimated Blood Loss: Less than 10 mls TECHNIQUE One percent lidocaine used to anesthetize the right anterior aspect of the wrist. The right radial artery was accessed via the Seldinger technique. A 6 Tajik sheath was placed in the right radial artery. 2.5 mg of Verapamil, 800 mcg of nitroglycerin, 1mg Lidocaine and 5000 U Heparin were given through the arterial sheath. The papa catheter was also used to perform selective coronary angiogram. At the end the diagnostic procedure therapeutic heparin was administered giving a therapeutic ACT and the guide catheter was placed in the right coronary artery followed by Choice PT extra-support wire. A 3 mm x 38 mm Bailey frontier stent was deployed distally at 24 dhruv reducing the stenosis. A 3.5 x 38 mm Aleks frontier stent was placed proximal to the first that he has still overlapping and deployed at 20 dhruv. The balloon was advanced into the first stent and was deployed at 20 dhruv to post dilate. AILEEN-3 flow was present before and after the procedure. After achieving excellent angiographic results the apparatus was removed from the right coronary artery and placed in the left main artery followed by Choice PT extra-support wire placed into the LAD. A 3.5 x 18 mm Bailey frontier stent was placed in the mid LAD at 16 dhruv. AILEEN-3 flow was present before and after the procedure. Following this the wire was pulled back and placed into the ramus intermedius where a 3 mm x 12 mm Bailey frontier stent was placed in the ostial proximal ramus intermedius at 12 dhruv reducing the stenosis to 0%. AILEEN-3 flow was present before and after the procedure. At the end the procedure the apparatus was removed the sheath was removed and hemostasis was achieved using TR banding patient was transferred to the postop holding area in stable condition ANGIOGRAPHIC RESULTS The left main artery Normal The left anterior descending artery Has proximal tubular 50% stenosis with a focal mid vessel 70 to 80% stenosis The circumflex artery Gives rise to a large ramus intermedius which has a proximal concentric 70% stenosis. The solitary obtuse marginal artery is widely patent with mild 10% mid vessel luminal irregularity The right coronary artery Is a large dominant vessel with proximal 80 followed by 90% stenosis with mid vessel 70% stenoses and a distal 70% stenosis with a small dissection on the inferior border of the vessel. The BURKS ventriculogram reveals Not performed The left ventricular end-diastolic pressure Not measured IMPRESSION Severe disease throughout the right coronary as described above with successful stenting reducing the proximal mid and distal right coronary to 0% with 2 contiguous drug-eluting stents Severe disease in the mid LAD with successful stenting reducing the lesion to 0% with 1 drug-eluting stent Severe ostial proximal disease in the moderate to large ramus intermedius with successful stenting reducing lesion to 0% with 1 drug-eluting stent PLAN 1. Effient 10 mg daily plus aspirin 81 mg daily 2. LDL less than 55 to be achieved with high intensity statin 3. Cardiac rehabilitation 4. Avoidance of tobacco products 5. Risk factor modification Electronically signed by : Bereket Patel MD 11/13/2023 12:17:29
[2023-11-13 08:02] LABS: Basophils # 0.1 K/mm3 (0-0.2); Basophils % 1.1 % (0.1-2.0); Eosinophils # 0.3 K/mm3 (0.0-0.4); Eosinophils % 3.3 % (0.1-12.0); Hematocrit 40.7 % (37.0-47.0); Hemoglobin 13.7 g/dL (12.2-16.2); Lymphocytes # 3.7 K/mm3 (0.7-4.5); Lymphocytes % 42.1 % (10-50); Mean Corpuscular HGB Conc 33.7 g/dL (31.8-35.4); Mean Corpuscular Hemoglobin 28.5 pg (27.0-31.2); Mean Corpuscular Volume 84.7 fl (81-99); Mean Platelet Volume 7.5 fl (7.4-10.4); Monocytes # 0.4 K/mm3 (0.1-1.0); Monocytes % 4.6 % (1.7-9.3); Neutrophils # 4.3 K/mm3 (1.8-7.8); Neutrophils % 48.9 % (37.0-80.0); Platelet Count 365 K/mm3 (142-424); Red Blood Count 4.81 M/mm3 (4.20-5.40); Red Cell Distribution Width 15.6 % (11.5-17.5); White Blood Count 8.9 K/mm3 (4.8-10.8)
[2023-11-13 08:11] LABS: Anion Gap 8.5 mEq/L (5-15); Blood Urea Nitrogen 13 mg/dl (7-17); Calcium 9.2 mg/dl (8.4-10.2); Carbon Dioxide 31 mmol/L (22.0-30.0); Chloride 102 mmol/L (98-107); Creatinine Clearance Estimated 80 mL/min (50-200); Estimated Glomerular Filt Rate 72 ml/min (>60); GFR (African American) 87 ML/MIN (>60); Glucose 143 mg/dl (74-100); Potassium 3.5 mmoL/L (3.5-5.1); Sodium 138 mmol/L (136-145)
[2023-11-13] MEDS: LIDOCAINE 1% 10ML MDV 20 ML IJ (11:32)
[2023-11-13] MEDS: diphenhydrAMINE 50MG/ML VIAL 50 MG IV (11:32)
[2023-11-13] MEDS: VERAPAMIL 2.5MG/ML 2ML VIAL 2.5 MG IV (11:32)
[2023-11-13] MEDS: NITROGLYCERIN 800MCG/8ML SYR (CATH LAB) 800 MCG IA (11:32)
[2023-11-13] MEDS: HEPARIN 1,000 UNITS/ML 10ML VIAL (CATH LAB) 10000 UNIT IV ×2 (11:33→12:20)
[2023-11-13] MEDS: 0.9 % SODIUM CHLORIDE 500 ML 25 ML IV (11:33)
[2023-11-13] MEDS: MIDAZOLAM HCL 1MG/1ML 5ML VIAL 1 MG IV (11:33)
[2023-11-13] MEDS: HEPARIN 1,000 UNITS/500ML NS (CATH LAB) 3000 UNIT IV (11:33)
[2023-11-13] MEDS: FENTANYL 100MCG/2ML VIAL 50 MCG IV (11:34)
[2023-11-13] MEDS: PRASUGREL 10MG TAB 60 MG PO (12:20)
[2023-11-13] MEDS: IOPAMIDOL-370 (76%);100ML BOTTLE 150 ML IV (13:14)
[2023-11-13 15:11] LABS: CATHL Activated Clotting Time 236 SEC (74-125)
== END 2023-11-13 15:45 | disposition home or self-care (01) ==
PROVIDERS: PCP Family Medicine; Visit Provider Internal Medicine
DX: R94.39 Abnormal result of other cardiovascular function study (principal); I25.118 Atherosclerotic heart disease of native coronary artery with other forms of angina pectoris; I11.9 Hypertensive heart disease without heart failure; N18.9 Chronic kidney disease, unspecified; Z79.899 Other long term (current) drug therapy; F17.210 Nicotine dependence, cigarettes, uncomplicated; E78.5 Hyperlipidemia, unspecified
CPT/HCPCS: 80048; 85025; 85347; 92928; 93454; 99152; 99153; C1725; C1769; C1874; C1876; C9600; J1644; Q9967

== ENCOUNTER 2023-12-07 14:06 | Emergency (ER) | payer MEDICARE, MEDICAID, SELFPAY ==
--- NOTE | 2023-12-07 14:16 | CT_ITS ---
FINAL REPORT TECHNIQUE: Thin section axial CT with contrast with multiplanar reconstruction. This study was performed with techniques to keep radiation doses as low as reasonably achievable (ALARA). Individualized dose reduction techniques using automated exposure control or adjustment of mA and/or kV according to the patient's size were employed. CLINICAL HISTORY: chest pain COMPARISON: 07/04/2022 FINDINGS: Pulmonary vessels enhance in normal fashion without evidence of embolism. Thoracic aorta shows no dissection or aneurysm. No pulmonary mass or infiltrate is present. There is no significant pleural effusion. There is no significant pericardial effusion. No mediastinal or hilar adenopathy is present. There is significant coronary artery calcification. IMPRESSION: 1. No evidence of pulmonary embolism. Reviewed, Interpreted and Dictated by Ervin Hough MD Transcribed by Addie Saavedra Authenticated and [facility]
[2023-12-07 14:17] VITALS: BP 147/91; PULSE 119; RESP 19; TEMP 36.9; O2SAT 99; BMI 32.8
--- NOTE | 2023-12-07 14:27 | ECG_ITS ---
APPROVED REPORT Exam: Resting ECG HR:106 bpm ECG Measurements Heart Rate 106 AXES GA 157 P 58 QRSd 80 QRS 78 QT 339 T 54 QTc 401 Conclusion [address]YCARDIA MINIMAL ST DEPRESSION [0.025+ mV ST DEPRESSION] ABNORMAL RHYTHM ECG UNCONFIRMED REPORT Electronically signed by : Rubio Diaz MD 12/07/2023 16:29:57
[2023-12-07 14:28] LABS: Basophils # 0.1 K/mm3 (0-0.2); Eosinophils # 0.3 K/mm3 (0.0-0.4); Eosinophils % 2.4 % (0.1-12.0); Hematocrit 36.7 % (37.0-47.0); Hemoglobin 12.5 g/dL (12.2-16.2); Lymphocytes # 4.1 K/mm3 (0.7-4.5); Lymphocytes % 36.6 % (10-50); Mean Corpuscular HGB Conc 34.2 g/dL (31.8-35.4); Mean Corpuscular Hemoglobin 28.2 pg (27.0-31.2); Mean Corpuscular Volume 82.6 fl (81-99); Mean Platelet Volume 7.4 fl (7.4-10.4); Monocytes # 0.5 K/mm3 (0.1-1.0); Monocytes % 4.4 % (1.7-9.3); Neutrophils # 6.3 K/mm3 (1.8-7.8); Neutrophils % 55.7 % (37.0-80.0); Platelet Count 362 K/mm3 (142-424); Red Blood Count 4.44 M/mm3 (4.20-5.40); Red Cell Distribution Width 15.3 % (11.5-17.5); White Blood Count 11.3 K/mm3 (4.8-10.8)
[2023-12-07 14:30] VITALS: BP 162/98; PULSE 114; RESP 20; O2SAT 95
[2023-12-07 14:31] LABS: Chloride 100 mmol/L (98-107); Potassium 3.3 mmoL/L (3.5-5.1); Sodium 140 mmol/L (136-145)
--- NOTE | 2023-12-07 14:31 | HMH.EDGENADL ---
Discharge Plan Disposition Patient Disposition: Home, Self-Care Condition: Good Prescriptions Prescriptions: No Action magnesium 30 mg tablet 30 mg PO DAILY B complex with C 20-folic acid 1 mg capsule 1 cap PO DAILY albuterol sulfate [ProAir HFA] 90 mcg/actuation HFA aerosol inhaler 2 inh INHALATION Q6H PRN (Reason: shortness of breath or wheezing) Qty: 8.5 10RF metformin 500 mg tablet 500 mg PO BID Qty: 60 2RF Hold Instructions: Resume on 11/16/23. gabapentin 800 mg tablet 800 mg PO TID 30 Days Qty: 90 2RF aspirin [Adult Low Dose Aspirin] 81 mg tablet,delayed release (DR/EC) 81 mg PO DAILY atorvastatin [Lipitor] 10 mg tablet 10 mg PO QDAY Qty: 90 3RF levocetirizine 5 mg tablet PO clonazepam 0.5 mg tablet 0.5 mg PO ONCE Qty: 30 0RF varenicline 0.5 mg (11)- 1 mg (42) tablets,dose pack See Rx Instructions PO PER PKG DIR Qty: 53 0RF Rx Instructions: PO PER PKG DIR potassium chloride 10 mEq tablet,ER particles/crystals See Rx Instructions .ROUTE .COMPLEX Qty: 90 0RF Dose Instruction: TAKE 1 TABLET BY MOUTH ONCE DAILY WITH FOOD Rx Instructions: TAKE 1 TABLET BY MOUTH ONCE DAILY WITH FOOD furosemide 40 mg tablet See Rx Instructions .ROUTE .COMPLEX Qty: 90 0RF Dose Instruction: TAKE 1 TABLET BY MOUTH DAILY NEEDED FOR EDEMA Rx Instructions: TAKE 1 TABLET BY MOUTH DAILY NEEDED FOR EDEMA prasugrel [Effient] 10 mg Tablet 10 mg PO DAILY 30 Days Qty: 30 6RF losartan 50 mg tablet See Rx Instructions .ROUTE .COMPLEX Rx Instructions: TAKE 1 TABLET BY MOUTH DAILY amitriptyline 75 mg tablet 75 mg PO HS omeprazole 40 mg capsule,delayed release(DR/EC) See Rx Instructions .ROUTE .COMPLEX Rx Instructions: TAKE 1 CAPSULE BY MOUTH ONCE DAILY NEEDED FOR ACID REFLUX bisoprolol fumarate 5 mg tablet See Rx Instructions .ROUTE .COMPLEX Rx Instructions: TAKE 1 TABLET BY MOUTH ONCE DAILY FOR BLOOD PRESSURE fluticasone propionate 50 mcg/actuation spray,suspension See Rx Instructions .ROUTE .COMPLEX Rx Instructions: USE 2 SPRAYS IN EACH NOSTRIL ONCE A DAY SHAKE WELL duloxetine 60 mg capsule,delayed release(DR/EC) See Rx Instructions .ROUTE .COMPLEX Rx Instructions: TAKE 1 CAPSULE BY MOUTH DAILY Referrals Follow up/Referrals: Malachi Byrd MD [Primary Care Provider] - See instructions Activity Restrictions/Add. Instructions Additional Instructions/Restrictions: Continue following up with cardiology for further cardiovascular workup. See your family doctor within 1 or 2 days to establish care and ensure improvement of fast heart rate If you have any worsening of your condition or any other concerning signs or symptoms, return to the emergency department or your primary care doctor for further evaluation. Clinical Impressions Clinical Impression: Chest pain Discharge ED Provider: Nadeem Manuel General Adult HPI <Sonali Pelaez DO - Last Filed: 12/07/23 14:47> General Chief complaint: Arrhythmia/Palpitations Stated complaint: fast heart rate Time Seen by Provider: 12/07/23 14:16 Mode of Arrival: Ambulatory Source of Information: Patient Limitations: No Limitations Description of Symptoms (Recalled from ER Triage Doc. by RN): Pt c/o her heart racing since last night. Pt states she had stents placed by 3wks ago. Pt was brought over from Dr. Mckeon office for a CTA. History of Present Illness HPI narrative: This patient is a 63-year-old female with a history of CAD status post stenting, extensive smoking history, hypertension, hyperlipidemia, CKD, hypertensive heart disease, and restrictive lung disease presenting to the emergency department for evaluation with concern for chest pain and shortness of breath. Patient reports that yesterday evening she was watching a movie when she had onset of chest pain and shortness of breath. It is on the left side of her chest. It has been intermittent since yesterday and comes and goes. Nothing seems to trigger it. Nothing makes it better or worse. She went to cardiology clinic today to be evaluated for this pain, and she was noted to have sinus tachycardia with a heart rate in the 120s on EKG. Given this, cardiology wanted to get an outpatient CT per ARELY Kolb, however they were unable to do this. Given this, patient was sent in for further evaluation and management. No other concerns noted, such as fevers, chills, abdominal pain, nausea, vomiting or change in bowel movements, rashes, or swelling. She does have an immobilized left ankle from an injury back in August. She is on prasugrel. No h/o blood clots or clotting disorders. Related Data Home Medications Medication Instructions Recorded Confirmed aspirin 81 mg tablet,delayed 81 mg PO DAILY CAD 12/14/20 12/07/23 release (Adult Low Dose Aspirin) magnesium 30 mg tablet 30 mg PO DAILY SUPPLIMENT 06/03/21 12/07/23 vitamin B complex and vitamin C 1 cap PO DAILY SUPPLIMENT 06/03/21 12/07/23 no.20-folic acid 1 mg capsule amitriptyline 75 mg tablet 75 mg PO HS Pain 08/04/23 12/07/23 bisoprolol fumarate 5 mg tablet See Rx Instructions .Route 08/04/23 12/07/23 .COMPLEX BLOOD PRESSURE duloxetine 60 mg capsule,delayed See Rx Instructions .Route 08/04/23 12/07/23 release .COMPLEX MOOD fluticasone propionate 50 See Rx Instructions .Route 08/04/23 12/07/23 mcg/actuation nasal .COMPLEX ALLERGIES spray,suspension losartan 50 mg tablet See Rx Instructions .Route 08/04/23 12/07/23 .COMPLEX BLOOD PRESSURE omeprazole 40 mg capsule,delayed See Rx Instructions .Route 08/04/23 12/07/23 release .COMPLEX GERD levocetirizine 5 mg tablet mg PO 12/01/23 12/07/23 Previous Rx's Medication Instructions Recorded atorvastatin 10 mg tablet (Lipitor) 10 mg PO QDAY Cholesterol #90 tabs 10/25/22 albuterol sulfate 90 mcg/actuation 2 inh inhalation Q6H PRN shortness 04/28/23 aerosol inhaler (ProAir HFA) of breath or wheezing #8.5 grams gabapentin 800 mg tablet 800 mg PO TID neuropathy 30 days 09/20/23 #90 tabs metformin 500 mg tablet 500 mg PO BID #60 tabs 09/20/23 potassium chloride 10 mEq See Rx Instructions .Route 11/13/23 tablet,extended release(part/cryst) .COMPLEX #90 tabs prasugrel 10 mg tablet (Effient) 10 mg PO DAILY 30 days #30 tabs 11/13/23 clonazepam 0.5 mg tablet 0.5 mg PO ONCE Anxiety #30 tabs 12/01/23 varenicline 0.5 mg (11)-1 mg (42) See Rx Instructions PO PER PKG DIR 12/01/23 tablets in a dose pack #53 tabs furosemide 40 mg tablet See Rx Instructions .Route 12/06/23 .COMPLEX #90 tabs Allergies Allergy/AdvReac Type Severity Reaction Status Date / Time amoxicillin Allergy Intermediate I-RASH Verified 12/07/23 13:13 Penicillins [PENICILLINS] Allergy Unknown Verified 12/07/23 13:13 steroids AdvReac Uncoded 12/07/23 13:13 PFSH <Sonali Pelaez DO - Last Filed: 12/07/23 14:47> [facility] Disclaimer: The information contained in this section may have been updated after the patient was seen, as this information can be updated by other users. Medical History Abnormal cardiovascular stress test Abnormal PFT Angina pectoris Bronchitis Cervical spine fracture Chest pain COVID-19 virus test result unknown Dyspnea Dyspnea on exertion Encounter for laboratory testing for COVID-19 virus HLD (hyperlipidemia) Left upper extremity numbness Neuropathic pain Restrictive lung disease Sinus tachycardia Smoking greater than 30 pack years Sore throat Strep throat Tobacco abuse Tobacco abuse counseling Surgical History History of breast biopsy History of cardiac cath History of colonoscopy History of total hysterectomy Family History Other Coronary artery disease Heart attack Social History Smoking Status: Light tobacco smoker tobacco type: cigarettes packs per day: 1 alcohol intake: never substance use type: denies use current occupational status: disabled Travel in the last 8 weeks: None household members: none housing: apartment <Sonali Pelaez DO - Last Filed: 12/07/23 14:47> ROS Obtained: Yes All systems reviewed & no additional complaints except as documented Physical Exam <Sonali Pelaez DO - Last Filed: 12/07/23 14:47> General General appearance: alert and in no apparent distress Head Head exam: atraumatic and normocephalic Eye Eye exam: Present normal appearance, PERRL and EOMI ENT ENT exam: Present normal exam, normal oropharynx, mucous membranes moist and normal external ear exam Neck Neck exam: Present normal inspection, full ROM and trachea midline; Absent tenderness Chest Chest inspection: Present normal inspection and symmetric chest wall rise; Absent tenderness Respiratory Respiratory exam: Present normal lung sounds bilaterally; Absent respiratory distress, wheezes, stridor or accessory muscle use Cardiovascular Cardiovascular exam: Present normal rhythm and tachycardia Abdominal Exam Abdominal exam: Present soft; Absent distention, tenderness or guarding Extremities Exam Extremities exam: Present full ROM, normal capillary refill and edema (mild BLE edema); Absent tenderness Back Exam Back exam: Present normal inspection and full ROM; Absent tenderness Neurological Exam Neurological exam: Present alert, oriented X3 and CN II-XII intact; Absent motor sensory deficit Psychiatric Psychiatric exam: Present normal affect and normal mood Skin Skin exam: Present warm and dry Medical Decision Making <Sonali Pelaez, DO - Last Filed: 12/07/23 14:47> Medical Records Medical records reviewed: Yes I reviewed the patient's medical records. Nader Inquiry Pt receiving controlled substance: No Vital Signs: 12/07/23 14:17 12/07/23 14:30 12/07/23 15:00 Temperature 98.5 F Temperature Source Oral Pulse Rate 114 H 108 H Pulse Rate [Left] 119 H Respiratory Rate 19 20 20 Blood Pressure 162/98 H 150/94 H Blood Pressure [Right Arm] 147/91 H Blood Pressure Mean 119 112 Blood Pressure Mean [Right Arm] 109 Blood Pressure Source [Right Arm] Automatic Cuff Blood Pressure Position [Right Arm] Sitting 02 Sat by Pulse Oximetry 99 95 96 12/07/23 15:31 Temperature Temperature Source Pulse Rate 102 H Pulse Rate [Left] Respiratory Rate 20 Blood Pressure 120/94 H Blood Pressure [Right Arm] Blood Pressure Mean 102 Blood Pressure Mean [Right Arm] Blood Pressure Source [Right Arm] Blood Pressure Position [Right Arm] 02 Sat by Pulse Oximetry 96 Lab Data Lab results reviewed: Yes I reviewed the patient's lab results. Lab Results 12/07/23 14:10: NT-Pro-B Natriuret Pep 64.5, TSH 2.16, Thyroxine (T4) 11.4 H 12/07/23 14:12: WBC 11.3 H, RBC 4.44, Hgb 12.5, Hct 36.7 L, MCV 82.6, MCH 28.2, MCHC 34.2, RDW 15.3, Plt Count 362, MPV 7.4, Neut % (Auto) 55.7, Lymph % (Auto) 36.6, [place] % (Auto) 4.4, Eos % (Auto) 2.4, Baso % (Auto) 1.0, Neut # (Auto) 6.3, Lymph # (Auto) 4.1, [place] # (Auto) 0.5, Eos # (Auto) 0.3, Baso # (Auto) 0.1, PT 12.0, INR 1.12 H, APTT 26.3, Sodium 140, Potassium 3.3 L, Chloride 100, Carbon Dioxide 28, Anion Gap 15.3 H, BUN 14, Creatinine 0.90, Estimated Creat Clear 79, Estimated GFR 63, Est GFR ( Amer) 76, Glucose 148 H, Calcium 9.2, Total Bilirubin 0.7, AST 30, ALT 30, Alkaline Phosphatase 159 H, Troponin I < 0.01, Total Protein 8.0, Albumin 4.4, Globulin 3.6 H, Albumin/Globulin Ratio 1.2 12/07/23 14:12 12/07/23 14:12 Orders (Tests/Meds): ED MEDICATIONS Discontinued Medications Generic Name Dose Route Start Last Admin Trade Name Freq PRN Reason Stop Dose Admin Iopamidol 70 ml 12/07/23 14:56 12/07/23 14:57 Iopamidol-370 (76%);100ml Bottle IV 12/07/23 14:57 70 ml ONCE ONE Administration Sodium Chloride 10 ml 12/07/23 14:56 12/07/23 14:57 Sodium Chloride 0.9% 10ml Syr (Rad Only) IV 12/07/23 14:57 10 ml ONCE ONE Administration Sodium Chloride 50 ml 12/07/23 14:56 12/07/23 14:57 0.9 % Sodium Chloride 50 Ml Vial IV 12/07/23 14:57 50 ml ONCE ONE Administration ORDERS Category Date Time Status CT angio chest PE protocol Stat Cat Scan 12/07/23 14:16 Completed Activated Partial Thrombo Time Stat Lab 12/07/23 14:12 Completed Brain Natriuretic Peptide Stat Lab 12/07/23 14:10 Completed Complete Blood Count Auto Diff Stat Lab 12/07/23 14:12 Completed Comprehensive Metabolic Panel Stat Lab 12/07/23 14:12 Completed Prothrombin Time INR Stat Lab 12/07/23 14:12 Completed T4 (Thyroxine) Routine Lab 12/07/23 14:10 Completed Thyroid Stimulating Hormone Routine Lab 12/07/23 14:10 Completed Troponin I Q3H Lab 12/07/23 17:30 Ordered Troponin I Q3H Lab 12/07/23 20:30 Ordered Troponin I Stat Lab 12/07/23 14:12 Completed ECG initial Besson Routine Y 12/07/23 14:27 Completed ECG Data Tracing #1: I reviewed this ECG and interpreted as documented below: Sinus tachycardia with a ventricular rate of [address] changes concerning for ischemia. normal axis and intervals. ECG initial impression date: 12/07/23 ECG initial impression time: 14:29 Medical Decision Narrative: In summary, this patient is a 63 year old female presenting to the Emergency Department for evaluation of chest pain and shortness of breath. Differential diagnoses considered include but are not limited to ACS, PE, aortic dissection, GERD, pleurisy, pericarditis, myocarditis, COPD exacerbation, pneumonia. Ruling out the most morbid conditions drove assessment. It should be noted patient's history includes CAD status post stenting, hypertension, hyperlipidemia, hypertensive heart disease, and restrictive lung disease secondary to longstanding history of smoking which may or may not be at goal therapy. This complicates all aspects of care by increasing patient's risk for morbidity. I reviewed patient's past medical records and noted previous cardiology evaluations, including today in clinic. I also had an interactive discussion with her provider, Kennedi. On exam, the patient is alert and well-appearing. She has mild sinus tachycardia and is mildly hypertensive, but vitals are otherwise reassuring. Oxygen saturation is normal on room air. Workup included CBC, CMP, troponin, PT, PTT, and CTA PE protocol. EKG was obtained and did not demonstrate any acute ST changes concerning for ischemia. Patient remains on cardiac monitoring at this time. Patient care signed out to the oncoming provider, Dr. Manuel, pending results and disposition. [HEART SCORE] <Nadeem Manuel MD - Last Filed: 12/07/23 16:57> Vital Signs: 12/07/23 14:17 12/07/23 14:30 12/07/23 15:00 Temperature 98.5 F Temperature Source Oral Pulse Rate 114 H 108 H Pulse Rate [Left] 119 H Respiratory Rate 19 20 20 Blood Pressure 162/98 H 150/94 H Blood Pressure [Right Arm] 147/91 H Blood Pressure Mean 119 112 Blood Pressure Mean [Right Arm] 109 Blood Pressure Source [Right Arm] Automatic Cuff Blood Pressure Position [Right Arm] Sitting 02 Sat by Pulse Oximetry 99 95 96 12/07/23 15:31 Temperature Temperature Source Pulse Rate 102 H Pulse Rate [Left] Respiratory Rate 20 Blood Pressure 120/94 H Blood Pressure [Right Arm] Blood Pressure Mean 102 Blood Pressure Mean [Right Arm] Blood Pressure Source [Right Arm] Blood Pressure Position [Right Arm] 02 Sat by Pulse Oximetry 96 Lab Data Lab Results 12/07/23 14:10: NT-Pro-B Natriuret Pep 64.5, TSH 2.16, Thyroxine (T4) 11.4 H 12/07/23 14:12: WBC 11.3 H, RBC 4.44, Hgb 12.5, Hct 36.7 L, MCV 82.6, MCH 28.2, MCHC 34.2, RDW 15.3, Plt Count 362, MPV 7.4, Neut % (Auto) 55.7, Lymph % (Auto) 36.6, [place] % (Auto) 4.4, Eos % (Auto) 2.4, Baso % (Auto) 1.0, Neut # (Auto) 6.3, Lymph # (Auto) 4.1, [place] # (Auto) 0.5, Eos # (Auto) 0.3, Baso # (Auto) 0.1, PT 12.0, INR 1.12 H, APTT 26.3, Sodium 140, Potassium 3.3 L, Chloride 100, Carbon Dioxide 28, Anion Gap 15.3 H, BUN 14, Creatinine 0.90, Estimated Creat Clear 79, Estimated GFR 63, Est GFR ( Amer) 76, Glucose 148 H, Calcium 9.2, Total Bilirubin 0.7, AST 30, ALT 30, Alkaline Phosphatase 159 H, Troponin I < 0.01, Total Protein 8.0, Albumin 4.4, Globulin 3.6 H, Albumin/Globulin Ratio 1.2 Orders (Tests/Meds): ED MEDICATIONS Discontinued Medications Generic Name Dose Route Start Last Admin Trade Name Freq PRN Reason Stop Dose Admin Iopamidol 70 ml 12/07/23 14:56 12/07/23 14:57 Iopamidol-370 (76%);100ml Bottle IV 12/07/23 14:57 70 ml ONCE ONE Administration Sodium Chloride 10 ml 12/07/23 14:56 12/07/23 14:57 Sodium Chloride 0.9% 10ml Syr (Rad Only) IV 12/07/23 14:57 10 ml ONCE ONE Administration Sodium Chloride 50 ml 12/07/23 14:56 12/07/23 14:57 0.9 % Sodium Chloride 50 Ml Vial IV 12/07/23 14:57 50 ml ONCE ONE Administration ORDERS Category Date Time Status CT angio chest PE protocol Stat Cat Scan 12/07/23 14:16 Completed Activated Partial Thrombo Time Stat Lab 12/07/23 14:12 Completed Brain Natriuretic Peptide Stat Lab 12/07/23 14:10 Completed Complete Blood Count Auto Diff Stat Lab 12/07/23 14:12 Completed Comprehensive Metabolic Panel Stat Lab 12/07/23 14:12 Completed Prothrombin Time INR Stat Lab 12/07/23 14:12 Completed T4 (Thyroxine) Routine Lab 12/07/23 14:10 Completed Thyroid Stimulating Hormone Routine Lab 12/07/23 14:10 Completed Troponin I Q3H Lab 12/07/23 17:30 Ordered Troponin I Q3H Lab 12/07/23 20:30 Ordered Troponin I Stat Lab 12/07/23 14:12 Completed ECG initial Besson Routine Y 12/07/23 14:27 Completed Medical Decision Narrative: In summary, this patient is a 63 year old female presenting to the Emergency Department for evaluation of chest pain and shortness of breath. Differential diagnoses considered include but are not limited to ACS, PE, aortic dissection, GERD, pleurisy, pericarditis, myocarditis, COPD exacerbation, pneumonia. Ruling out the most morbid conditions drove assessment. It should be noted patient's history includes CAD status post stenting, hypertension, hyperlipidemia, hypertensive heart disease, and restrictive lung disease secondary to longstanding history of smoking which may or may not be at goal therapy. This complicates all aspects of care by increasing patient's risk for morbidity. I reviewed patient's past medical records and noted previous cardiology evaluations, including today in clinic. I also had an interactive discussion with her provider, Kennedi. On exam, the patient is alert and well-appearing. She has mild sinus tachycardia and is mildly hypertensive, but vitals are otherwise reassuring. Oxygen saturation is normal on room air. Workup included CBC, CMP, troponin, PT, PTT, and CTA PE protocol. EKG was obtained and did not demonstrate any acute ST changes concerning for ischemia. Patient remains on cardiac monitoring at this time. Patient care signed out to the oncoming provider, Dr. Manuel, pending results and disposition. Mar: I assume primary responsibility for this patient after signout from previous physician. Heart score 4. Workup independently interpreted. Patient has mild leukocytosis 11, nonactionable overall. Chemistry nonactionable as well. Kidney function normal. Troponin negative, BNP nonactionable. Thyroid studies also nonactionable. CT PE personally interpreted and no evidence of pulmonary embolus, patient also has no evidence of cardiopulmonary disease. Because of this, patient is appropriate for outpatient management with cardiology. Because patient at baseline without signs or symptoms of clinical decompensation, deemed appropriate for discharge. Results were relayed to patient who voiced understanding and were agreeable to outpatient management and follow up. At the time of discharge the patient was hemodynamically stable, tolerating PO, and mobilizing appropriately. Critical Care <Sonali Pelaez, DO - Last Filed: 12/07/23 14:47> Critical Care Time Critical Care Time: No
[2023-12-07 14:33] LABS: Blood Urea Nitrogen 14 mg/dl (7-17); Creatinine Clearance Estimated 79 mL/min (50-200); Estimated Glomerular Filt Rate 63 ml/min (>60); GFR (African American) 76 ML/MIN (>60)
[2023-12-07 14:34] LABS: Alanine Aminotransferase 30 U/L (12-78); Albumin Level 4.4 g/dl (3.5-5.0); Albumin/Globulin Ratio 1.2 (1.1-1.8); Alkaline Phosphatase 159 U/L (38-126); Anion Gap 15.3 mEq/L (5-15); Aspartate Amino Transferase 30 U/L (14-36); Bilirubin,Total 0.7 mg/dl (0.2-1.3); Calcium 9.2 mg/dl (8.4-10.2); Carbon Dioxide 28 mmol/L (22.0-30.0); Globulin 3.6 g/dL (1.3-3.2); Glucose 148 mg/dl (74-100)
[2023-12-07 14:38] LABS: Activated Partial Thrombo Time 26.3 seconds (22.8-30.6); INR 1.12 (0.9-1.1)
[2023-12-07 14:47] LABS: Troponin I < 0.01 ng/ml (0.00-0.034)
[2023-12-07] MEDS: SODIUM CHLORIDE 0.9% 10ML SYR (RAD ONLY) 10 ML IV (14:57)
[2023-12-07] MEDS: IOPAMIDOL-370 (76%);100ML BOTTLE 70 ML IV (14:57)
[2023-12-07] MEDS: 0.9 % SODIUM CHLORIDE 50 ML VIAL IV (14:57)
[2023-12-07 15:00] VITALS: BP 150/94; PULSE 108; RESP 20; O2SAT 96
[2023-12-07 15:31] VITALS: BP 120/94; PULSE 102; RESP 20; O2SAT 96
--- NOTE | 2023-12-07 15:54 | PC.NURSE ---
Dr Manuel contacted Dr Patel via personal phone
[2023-12-07 16:26] LABS: NT Pro Brain Natriuretic Pep. 64.5 pg/mL (0-125)
[2023-12-07 16:35] LABS: T4 (Thyroxine) 11.4 ug/dl (5.53-11.0)
[2023-12-07 16:48] LABS: Thyroid Stimulating Hormone 2.16 uIU/mL (0.465-4.68)
[2023-12-07 17:07] VITALS: BP 114/79; PULSE 109; RESP 18; TEMP 36.7; O2SAT 98
[2023-12-07 17:08] VITALS: BP 120/75; PULSE 58; RESP 18; TEMP 36.7
== END 2023-12-07 17:09 | disposition home or self-care (01) ==
PROVIDERS: Emergency Medicine; Emergency Provider Emergency Medicine; PCP Family Medicine
DX: R07.9 Chest pain, unspecified (principal); R06.02 Shortness of breath; I25.119 Atherosclerotic heart disease of native coronary artery with unspecified angina pectoris; I13.10 Hypertensive heart and chronic kidney disease without heart failure, with stage 1 through stage 4 chronic kidney disease, or unspecified chronic kidney disease; N18.9 Chronic kidney disease, unspecified; E78.5 Hyperlipidemia, unspecified; R00.0 Tachycardia, unspecified; F17.210 Nicotine dependence, cigarettes, uncomplicated
CPT/HCPCS: 71275; 80053; 83880; 84436; 84443; 84484; 85025; 85610; 85730; 93005; 99285; Q9967

== ENCOUNTER 2024-01-26 08:57 | Outpatient (CLI) | payer MEDICARE, MEDICAID, SELFPAY ==
[2024-01-26 09:26] LABS: Basophils # 0.2 K/mm3 (0-0.2); Basophils % 3.2 % (0.1-2.0); Eosinophils # 0.2 K/mm3 (0.0-0.4); Eosinophils % 3.4 % (0.1-12.0); Hemoglobin 11.1 g/dL (12.2-16.2); Lymphocytes # 2.6 K/mm3 (0.7-4.5); Lymphocytes % 35.8 % (10-50); Mean Corpuscular HGB Conc 31.7 g/dL (31.8-35.4); Mean Corpuscular Hemoglobin 27.5 pg (27.0-31.2); Mean Corpuscular Volume 86.5 fl (81-99); Mean Platelet Volume 7.7 fl (7.4-10.4); Monocytes # 0.3 K/mm3 (0.1-1.0); Monocytes % 4.6 % (1.7-9.3); Neutrophils # 3.8 K/mm3 (1.8-7.8); Platelet Count 360 K/mm3 (142-424); Red Blood Count 4.05 M/mm3 (4.20-5.40); Red Cell Distribution Width 15.7 % (11.5-17.5); White Blood Count 7.2 K/mm3 (4.8-10.8)
[2024-01-26 10:01] LABS: Albumin Level 4.3 g/dl (3.5-5.0); Alkaline Phosphatase 141 U/L (38-126); Anion Gap 14.9 mEq/L (5-15); Bilirubin,Direct 0.3 mg/dl (0.0-0.4); Bilirubin,Indirect 0.4 mg/dL (0.0-0.9); Bilirubin,Total 0.7 mg/dl (0.2-1.3); Bilirubin,Unconjugated 0.4 mg/dL (0.0-1.1); Blood Urea Nitrogen 15 mg/dl (7-17); Carbon Dioxide 28 mmol/L (22.0-30.0); Chloride 100 mmol/L (98-107); Chol/HDL Ratio 6.7 (1-3.5); Cholesterol 140 mg/dl (140-200); Estimated Glomerular Filt Rate 63 ml/min (>60); GFR (African American) 76 ML/MIN (>60); Glucose 271 mg/dl (74-100); HDL Cholesterol 21 mg/dl (40-60); Magnesium 2.1 mg/dl (1.6-2.3); Potassium 3.9 mmoL/L (3.5-5.1); Sodium 139 mmol/L (136-145); Total Protein,Serum 7.1 g/dl (6.3-8.2); Triglycerides 203 mg/dl (30-150); VLDL Cholesterol 41 mg/dL (0-40)
[2024-01-26 10:11] LABS: Direct LDL Cholesterol 76.98 mg/dL (100-129)
[2024-01-26 10:17] LABS: Free T4 (Free Thyroxine) 1.27 ng/dl (0.78-2.19)
[2024-01-26 10:22] LABS: Alanine Aminotransferase 25 U/L (12-78); Aspartate Amino Transferase 37 U/L (14-36)
[2024-01-26 10:32] LABS: Thyroid Stimulating Hormone 2.28 uIU/mL (0.465-4.68)
== END 2024-01-26 23:59 ==
LOC: LAB 08:57
PROVIDERS: PCP Family Medicine; Visit Provider Physician Assistant
DX: I11.9 Hypertensive heart disease without heart failure (principal); M79.2 Neuralgia and neuritis, unspecified; F41.9 Anxiety disorder, unspecified; N18.9 Chronic kidney disease, unspecified; Z95.5 Presence of coronary angioplasty implant and graft; F17.210 Nicotine dependence, cigarettes, uncomplicated; I12.9 Hypertensive chronic kidney disease with stage 1 through stage 4 chronic kidney disease, or unspecified chronic kidney disease
CPT/HCPCS: 36415; 80048; 80061; 80076; 83735; 84439; 84443; 85025

== ENCOUNTER 2024-03-25 10:59 | Outpatient (CLI) | payer MEDICARE, MEDICAID, SELFPAY ==
[2024-03-25 11:25] LABS: Basophils # 0.1 K/mm3 (0-0.2); Basophils % 0.8 % (0.1-2.0); Eosinophils # 0.3 K/mm3 (0.0-0.4); Eosinophils % 3.7 % (0.1-12.0); Hematocrit 28.7 % (37.0-47.0); Hemoglobin 8.9 g/dL (12.2-16.2); Lymphocytes # 2.7 K/mm3 (0.7-4.5); Lymphocytes % 33.2 % (10-50); Mean Corpuscular HGB Conc 30.9 g/dL (31.8-35.4); Mean Corpuscular Hemoglobin 23.6 pg (27.0-31.2); Mean Corpuscular Volume 76.5 fl (81-99); Mean Platelet Volume 7.7 fl (7.4-10.4); Monocytes # 0.4 K/mm3 (0.1-1.0); Monocytes % 4.4 % (1.7-9.3); Neutrophils # 4.7 K/mm3 (1.8-7.8); Neutrophils % 57.8 % (37.0-80.0); Platelet Count 475 K/mm3 (142-424); Red Blood Count 3.76 M/mm3 (4.20-5.40); Red Cell Distribution Width 16.8 % (11.5-17.5); White Blood Count 8.2 K/mm3 (4.8-10.8)
[2024-03-25 12:04] LABS: Alanine Aminotransferase 17 U/L (12-78); Albumin Level 4.1 g/dl (3.5-5.0); Alkaline Phosphatase 141 U/L (38-126); Aspartate Amino Transferase 24 U/L (14-36); Bilirubin,Direct 0.1 mg/dl (0.0-0.4); Bilirubin,Indirect 0.4 mg/dL (0.0-0.9); Bilirubin,Total 0.5 mg/dl (0.2-1.3); Bilirubin,Unconjugated 0.4 mg/dL (0.0-1.1); Blood Urea Nitrogen 11 mg/dl (7-17); Calcium 9.5 mg/dl (8.4-10.2); Carbon Dioxide 30 mmol/L (22.0-30.0); Chloride 99 mmol/L (98-107); Estimated Glomerular Filt Rate 72 ml/min (>60); GFR (African American) 87 ML/MIN (>60); Glucose 174 mg/dl (74-100); Magnesium 1.8 mg/dl (1.6-2.3); Sodium 140 mmol/L (136-145)
[2024-03-25 12:22] LABS: Free T4 (Free Thyroxine) 1.06 ng/dl (0.78-2.19)
[2024-03-25 12:35] LABS: Thyroid Stimulating Hormone 2.07 uIU/mL (0.465-4.68)
[2024-03-25 13:17] LABS: Anion Gap 14.6 mEq/L (5-15); Potassium 3.6 mmoL/L (3.5-5.1)
== END 2024-03-25 23:59 | disposition home or self-care (01) ==
LOC: LAB 12:28
PROVIDERS: PCP Family Medicine; Visit Provider Nurse Practitioner
DX: R06.09 Other forms of dyspnea; R06.00 Dyspnea, unspecified; R60.0 Localized edema; E66.9 Obesity, unspecified; R00.0 Tachycardia, unspecified; I25.10 Atherosclerotic heart disease of native coronary artery without angina pectoris; N18.9 Chronic kidney disease, unspecified; I11.9 Hypertensive heart disease without heart failure; R55 Syncope and collapse; Z95.5 Presence of coronary angioplasty implant and graft; M79.2 Neuralgia and neuritis, unspecified; M47.22 Other spondylosis with radiculopathy, cervical region; M79.602 Pain in left arm; R20.0 Anesthesia of skin; E66.09 Other obesity due to excess calories; Z68.31 Body mass index [BMI] 31.0-31.9, adult; F41.9 Anxiety disorder, unspecified; J98.4 Other disorders of lung; K21.9 Gastro-esophageal reflux disease without esophagitis; E11.9 Type 2 diabetes mellitus without complications; Z68.32 Body mass index [BMI] 32.0-32.9, adult
CPT/HCPCS: 36415; 80048; 80076; 83735; 84439; 84443; 85025

== ENCOUNTER 2024-04-04 11:32 | Emergency (ER) | payer MEDICARE, MEDICAID, SELFPAY ==
[2024-04-04] VITALS (15 sets, daily range): BP systolic 103–145; BP diastolic 53–80; PULSE 100–133; RESP 13–24; TEMP 36.6–37.1; O2SAT 92–99; BMI 31.6
--- NOTE | 2024-04-04 11:31 | ECG_ITS ---
APPROVED REPORT Exam: Resting ECG HR:114 bpm ECG Measurements Heart Rate 114 AXES SC 140 P 82 QRSd 80 QRS 93 QT 382 T 79 QTc 450 Conclusion SINUS TACHYCARDIA BORDERLINE RIGHT AXIS DEVIATION [QRS AXIS > 90] NONSPECIFIC ST & T-WAVE ABNORMALITY ABNORMAL RHYTHM ECG Electronically signed by : CRYSTAL AMANDA, 04/04/2024 16:08:19
--- NOTE | 2024-04-04 11:42 | XR_ITS ---
FINAL REPORT CLINICAL HISTORY: Acute cough, SOA FINDINGS: A single view of the chest was obtained. The heart is normal in size. The mediastinum is unremarkable. The lungs are clear. There is no pleural effusion. There is no pneumothorax. There is no acute osseous abnormality. IMPRESSION: No acute cardiopulmonary process. Reviewed, Interpreted and Dictated by Meir Ghosh MD Transcribed by Christina Ochoa Authenticated and [facility]
[2024-04-04 11:48] LABS: Basophils # 0.1 K/mm3 (0-0.2); Eosinophils # 0.3 K/mm3 (0.0-0.4); Eosinophils % 3.1 % (0.1-12.0); Hematocrit 27.6 % (37.0-47.0); Hemoglobin 8.8 g/dL (12.2-16.2); Lymphocytes # 2.9 K/mm3 (0.7-4.5); Lymphocytes % 32.2 % (10-50); Mean Corpuscular HGB Conc 31.7 g/dL (31.8-35.4); Mean Corpuscular Hemoglobin 23.6 pg (27.0-31.2); Mean Corpuscular Volume 74.2 fl (81-99); Monocytes # 0.5 K/mm3 (0.1-1.0); Monocytes % 5.5 % (1.7-9.3); Neutrophils # 5.2 K/mm3 (1.8-7.8); Neutrophils % 58.3 % (37.0-80.0); Platelet Count 545 K/mm3 (142-424); Red Blood Count 3.72 M/mm3 (4.20-5.40); Red Cell Distribution Width 17.3 % (11.5-17.5); White Blood Count 8.9 K/mm3 (4.8-10.8)
[2024-04-04 11:59] LABS: Alanine Aminotransferase 25 U/L (12-78); Albumin Level 4.2 g/dl (3.5-5.0); Albumin/Globulin Ratio 1.3 (1.1-1.8); Alkaline Phosphatase 158 U/L (38-126); Anion Gap 16.9 mEq/L (5-15); Aspartate Amino Transferase 29 U/L (14-36); Bilirubin,Total 0.6 mg/dl (0.2-1.3); Blood Urea Nitrogen 7 mg/dl (7-17); Calcium 8.9 mg/dl (8.4-10.2); Carbon Dioxide 29 mmol/L (22.0-30.0); Chloride 98 mmol/L (98-107); Estimated Glomerular Filt Rate 63 ml/min (>60); GFR (African American) 76 ML/MIN (>60); Globulin 3.2 g/dL (1.3-3.2); Glucose 222 mg/dl (74-100); Sodium 141 mmol/L (136-145); Total Protein,Serum 7.4 g/dl (6.3-8.2)
[2024-04-04 12:01] LABS: Activated Partial Thrombo Time 25.1 seconds (22.8-30.6); Prothrombin Time 11.8 seconds (10.1-12.5)
[2024-04-04 12:03] LABS: VBG HCO3 27.5 mmol/L (23-30); VBG Oxygen Saturation 83.1 % (50-70); VBG PCO2 43.4 mmol/L (35-51); VBG PH 7.42 mmol/L (7.31-7.41); VBG PO2 46.8 mmol/L (28-40); VBG Total CO2 28.8 mmol/L (23-27)
[2024-04-04 12:04] LABS: Lactate Venous 3.5 mmol/L (0.4-2.0)
[2024-04-04 12:07] LABS: Potassium 2.9 mmoL/L (3.5-5.1)
[2024-04-04 12:16] LABS: NT Pro Brain Natriuretic Pep. 51.7 pg/mL (0-125)
[2024-04-04 12:20] LABS: T4 (Thyroxine) 9.9 ug/dl (5.53-11.0)
[2024-04-04 12:27] LABS: Troponin I < 0.01 ng/ml (0.00-0.034)
[2024-04-04 12:29] LABS: D-Dimer < 0.25 ug/mL (0.0-0.5)
--- NOTE | 2024-04-04 12:30 | ED_ITS ---
Discharge Plan Disposition Patient Disposition: Home, Self-Care Prescriptions Prescriptions: New prednisone 20 mg tablet 40 mg PO DAILY 5 Days Qty: 10 0RF doxycycline hyclate 100 mg tablet 100 mg PO BID 7 Days Qty: 14 0RF No Action magnesium 30 mg tablet 30 mg PO DAILY B complex with C 20-folic acid 1 mg capsule 1 cap PO DAILY albuterol sulfate [ProAir HFA] 90 mcg/actuation HFA aerosol inhaler 2 inh INHALATION Q6H PRN (Reason: shortness of breath or wheezing) Qty: 8.5 10RF metformin 500 mg tablet 500 mg PO BID Qty: 60 2RF Hold Instructions: Resume on 11/16/23. gabapentin 800 mg tablet 800 mg PO TID Qty: 90 3RF atorvastatin 40 mg tablet 40 mg PO QDAY Qty: 90 3RF bisoprolol fumarate 5 mg tablet 2.5 mg PO DAILY Qty: 30 6RF losartan 25 mg tablet 25 mg PO DAILY Qty: 30 2RF clopidogrel [Plavix] 75 mg tablet 75 mg PO DAILY Qty: 30 2RF pantoprazole [Protonix] 40 mg tablet,delayed release (DR/EC) 40 mg PO DAILY Qty: 30 2RF amitriptyline 75 mg tablet 75 mg PO HS Qty: 90 3RF clonazepam 0.5 mg tablet 0.5 mg PO ONCE Qty: 30 3RF potassium chloride 10 mEq tablet,ER particles/crystals See Rx Instructions .ROUTE .COMPLEX Qty: 90 0RF Dose Instruction: TAKE 1 TABLET BY MOUTH ONCE DAILY WITH FOOD Rx Instructions: TAKE 1 TABLET BY MOUTH ONCE DAILY WITH FOOD levocetirizine 5 mg tablet 5 mg PO DAILY Qty: 90 0RF duloxetine 60 mg capsule,delayed release(DR/EC) See Rx Instructions .ROUTE .COMPLEX Qty: 30 0RF Dose Instruction: TAKE 1 CAPSULE BY MOUTH DAILY FOR MOOD Rx Instructions: TAKE 1 CAPSULE BY MOUTH DAILY FOR MOOD furosemide 40 mg tablet See Rx Instructions .ROUTE .COMPLEX Qty: 90 0RF Dose Instruction: TAKE 1 TABLET BY MOUTH DAILY NEEDED FOR EDEMA Rx Instructions: TAKE 1 TABLET BY MOUTH DAILY NEEDED FOR EDEMA fluticasone propionate 50 mcg/actuation spray,suspension See Rx Instructions .ROUTE .COMPLEX Rx Instructions: USE 2 SPRAYS IN EACH NOSTRIL ONCE A DAY SHAKE WELL Referrals Follow up/Referrals: Malachi Byrd MD [Primary Care Provider] - See instructions Activity Restrictions/Add. Instructions Additional Instructions/Restrictions: You were evaluated in the emergency department today. 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 We are prescribing you steroids and antibiotics for COPD exacerbation. Your potassium was low, so we replaced this today. Please follow-up with your primary care provider over the next 3 days for reassessment. I also recommend close follow-up with your pedodontist given your chest pain. Make sure that you are staying hydrated. Return to the emergency department for new or worsening symptoms. Clinical Impressions Clinical Impression: Hypokalemia, Anemia, General weakness, Acute exacerbation of chronic obstructive pulmonary disease Instructions Patient Instructions: DI for Chronic Obstructive Pulmonary Disease, DI for Hypokalemia, DI for Muscle Weakness Discharge ED Provider: Nadeem Manuel [facility] <Sonali Pelaez DO - Last Filed: 04/04/24 16:07> General Chief Complaint: Shortness of Breath/Dyspnea Stated Complaint: cp/soa Time Seen by Provider: 04/04/24 11:35 Mode of Arrival: Wheelchair Source of Information: Patient Limitations: No Limitations Description of Symptoms (Recalled from ER Triage Doc. by RN): pt to ed c/o dizziness, left sided chest pain that comes and goes. pt states she has been having symptoms x1 week. pt also reports increased SOA. History of Present Illness HPI narrative: This patient is a 63-year-old female with a history of obesity, CAD, CKD, hypertension, hypertensive heart disease, tobacco use disorder, hyperlipidemia, bronchitis, and anxiety presenting to the emergency department for evaluation with concern for lightheadedness, left-sided chest pain that comes and goes, dyspnea on exertion, and fatigue that has been going on for about a week now. She states that she overall just does not feel well. States that when she gets up to try and move around, she has to go and sit back down because she gets so out of breath and lightheaded. She states that it feels like everything has been drained out of her. She also notes that she was evaluated by cardiology recently and told that she has low blood counts and could be losing blood somewhere. She denies noting any sources of bleeding, such as hematuria, blood in stools, dark tarry stools, or other concerns. She denies any fevers, congestion, abdominal pain, vomiting, changes in bowel movements, rashes, or swelling. She does note cough. Related Data Home Medications Medication Instructions Recorded Confirmed magnesium 30 mg tablet 30 mg PO DAILY SUPPLIMENT 06/03/21 03/25/24 vitamin B complex and vitamin C 1 cap PO DAILY SUPPLIMENT 06/03/21 03/25/24 no.20-folic acid 1 mg capsule fluticasone propionate 50 See Rx Instructions .Route 08/04/23 03/25/24 mcg/actuation nasal .COMPLEX ALLERGIES spray,suspension Previous Rx's Medication Instructions Recorded albuterol sulfate 90 mcg/actuation 2 inh inhalation Q6H PRN shortness 04/28/23 aerosol inhaler (ProAir HFA) of breath or wheezing #8.5 grams metformin 500 mg tablet 500 mg PO BID #60 tabs 09/20/23 gabapentin 800 mg tablet 800 mg PO TID neuropathy #90 tabs 12/22/23 atorvastatin 40 mg tablet 40 mg PO QDAY Cholesterol #90 tabs 12/27/23 amitriptyline 75 mg tablet 75 mg PO HS Pain #90 tabs 01/09/24 clonazepam 0.5 mg tablet 0.5 mg PO ONCE Anxiety #30 tabs 01/22/24 levocetirizine 5 mg tablet 5 mg PO DAILY #90 tabs 02/05/24 potassium chloride 10 mEq See Rx Instructions .Route 02/05/24 tablet,extended release(part/cryst) .COMPLEX #90 tabs duloxetine 60 mg capsule,delayed See Rx Instructions .Route 03/07/24 release .COMPLEX #30 caps furosemide 40 mg tablet See Rx Instructions .Route 03/12/24 .COMPLEX #90 tabs bisoprolol fumarate 5 mg tablet 2.5 mg (1/2 x 5 mg) PO DAILY BLOOD 03/25/24 PRESSURE #30 tabs clopidogrel 75 mg tablet (Plavix) 75 mg PO DAILY #30 tabs 03/25/24 losartan 25 mg tablet 25 mg PO DAILY #30 tabs 03/25/24 pantoprazole 40 mg tablet,delayed 40 mg PO DAILY #30 tabs 03/25/24 release (Protonix) doxycycline hyclate 100 mg tablet 100 mg PO BID 7 days #14 tabs 04/04/24 prednisone 20 mg tablet 40 mg (2 x 20 mg) PO DAILY 5 days 04/04/24 #10 tabs Allergies Allergy/AdvReac Type Severity Reaction Status Date / Time amoxicillin Allergy Intermediate I-RASH Verified 03/25/24 10:00 Penicillins [PENICILLINS] Allergy Unknown Verified 03/25/24 10:00 steroids AdvReac Uncoded 03/25/24 10:00 PFS <Sonali Pelaez DO - Last Filed: 04/04/24 16:07> [facility] Disclaimer: The information contained in this section may have been updated after the patient was seen, as this information can be updated by other users. Medical History Sinus tachycardia Abnormal cardiovascular stress test Angina pectoris Dyspnea Chest pain Neuropathic pain Sore throat Cervical spine fracture Left upper extremity numbness Bronchitis Abnormal PFT Tobacco abuse counseling Restrictive lung disease Smoking greater than 30 pack years Dyspnea on exertion COVID-19 virus test result unknown Encounter for laboratory testing for COVID-19 virus Strep throat HLD (hyperlipidemia) Tobacco abuse Surgical History History of total hysterectomy History of colonoscopy History of cardiac cath History of breast biopsy Family History Other Coronary artery disease Heart attack Social History Smoking Status: Never smoker alcohol intake: never substance use type: denies use current occupational status: disabled Travel in the last 8 weeks: None household members: none housing: apartment <Sonali Pelaez DO - Last Filed: 04/04/24 16:07> ROS Obtained: Yes All systems reviewed & no additional complaints except as documented Physical Exam <Sonali Pelaez DO - Last Filed: 04/04/24 16:07> General General appearance: alert, in no apparent distress and obese Head Head exam: atraumatic and normocephalic Eye Eye exam: Present normal appearance, PERRL and EOMI ENT ENT exam: Present normal exam, normal oropharynx, mucous membranes moist and normal external ear exam Neck Neck exam: Present normal inspection, full ROM and trachea midline; Absent tenderness Chest Chest inspection: Present normal inspection and symmetric chest wall rise; Absent tenderness Respiratory Respiratory exam: Present wheezes (Faint expiratory wheezing noted bilaterally) and prolonged expiratory phase; Absent respiratory distress, stridor or accessory muscle use Cardiovascular Cardiovascular exam: Present normal rhythm and tachycardia Abdominal Exam Abdominal exam: Present soft; Absent distention, tenderness or guarding Extremities Exam Extremities exam: Present normal inspection, full ROM and normal capillary refill; Absent tenderness or edema Back Exam Back exam: Present normal inspection and full ROM; Absent tenderness Neurological Exam Neurological exam: Present alert, oriented X3, CN II-XII intact and normal gait; Absent motor sensory deficit Psychiatric Psychiatric exam: Present normal affect and normal mood Skin Skin exam: Present warm and dry HEART Score <Sonali Pelaez DO - Last Filed: 04/04/24 16:07> HEART Score HEART Score assessment performed?: Yes History (anamnesis): Moderately suspicious ECG: Normal Age: 45-65 years Risk factors: Atherosclerosis history Troponin: </= normal limit HEART Score: 4 Critical Care <Sonali Pelaez DO - Last Filed: 04/04/24 16:07> Critical Care Time Critical Care Time: No Medical Decision Making <Sonali Pelaez DO - Last Filed: 04/04/24 16:07> Nader Inquiry Pt receiving controlled substance: No Vital Signs Vital Signs: 04/04/24 11:42 04/04/24 11:44 04/04/24 12:00 Temperature 98.8 F Temperature Source Oral Pulse Rate 100 H Pulse Rate [Left Radial] 117 H Pulse Rate [Orthostatic Lying Left Radial] 106 H Pulse Rate [Orthostatic Sitting Left Radial] 111 H Pulse Rate [Orthostatic Standing Left Radial] 133 H Respiratory Rate 13 24 Blood Pressure 109/53 L Blood Pressure [Orthostatic Lying Left Arm] 106/60 L Blood Pressure [Orthostatic Sitting Right Arm] 117/58 L Blood Pressure [Orthostatic Standing Right Arm] 111/60 Blood Pressure [Right Arm] 140/73 Blood Pressure Mean Blood Pressure Mean [Right Arm] 95 02 Sat by Pulse Oximetry 98 92 L Oxygen Delivery Method Room Air Room Air 04/04/24 12:15 04/04/24 12:17 04/04/24 12:19 Temperature Temperature Source Pulse Rate 115 H 110 H 104 H Pulse Rate [Left Radial] Pulse Rate [Orthostatic Lying Left Radial] Pulse Rate [Orthostatic Sitting Left Radial] Pulse Rate [Orthostatic Standing Left Radial] Respiratory Rate 19 18 18 Blood Pressure 106/60 L 117/58 L 111/60 Blood Pressure [Orthostatic Lying Left Arm] Blood Pressure [Orthostatic Sitting Right Arm] Blood Pressure [Orthostatic Standing Right Arm] Blood Pressure [Right Arm] Blood Pressure Mean Blood Pressure Mean [Right Arm] 02 Sat by Pulse Oximetry 98 98 96 Oxygen Delivery Method Room Air Room Air Room Air 04/04/24 12:30 04/04/24 12:42 04/04/24 13:01 Temperature Temperature Source Pulse Rate 104 H 119 H 109 H Pulse Rate [Left Radial] Pulse Rate [Orthostatic Lying Left Radial] Pulse Rate [Orthostatic Sitting Left Radial] Pulse Rate [Orthostatic Standing Left Radial] Respiratory Rate 17 14 23 Blood Pressure 103/64 L 139/66 118/55 L Blood Pressure [Orthostatic Lying Left Arm] Blood Pressure [Orthostatic Sitting Right Arm] Blood Pressure [Orthostatic Standing Right Arm] Blood Pressure [Right Arm] Blood Pressure Mean Blood Pressure Mean [Right Arm] 02 Sat by Pulse Oximetry 96 97 98 Oxygen Delivery Method Room Air Room Air Room Air 04/04/24 13:30 04/04/24 14:00 04/04/24 14:30 Temperature Temperature Source Pulse Rate 111 H 104 H 106 H Pulse Rate [Left Radial] Pulse Rate [Orthostatic Lying Left Radial] Pulse Rate [Orthostatic Sitting Left Radial] Pulse Rate [Orthostatic Standing Left Radial] Respiratory Rate 17 19 20 Blood Pressure 117/69 111/59 L 127/71 Blood Pressure [Orthostatic Lying Left Arm] Blood Pressure [Orthostatic Sitting Right Arm] Blood Pressure [Orthostatic Standing Right Arm] Blood Pressure [Right Arm] Blood Pressure Mean 83 76 Blood Pressure Mean [Right Arm] 02 Sat by Pulse Oximetry 97 95 94 L Oxygen Delivery Method Room Air 04/04/24 15:00 04/04/24 15:31 Temperature Temperature Source Pulse Rate 110 H 104 H Pulse Rate [Left Radial] Pulse Rate [Orthostatic Lying Left Radial] Pulse Rate [Orthostatic Sitting Left Radial] Pulse Rate [Orthostatic Standing Left Radial] Respiratory Rate 16 19 Blood Pressure 116/80 116/53 L Blood Pressure [Orthostatic Lying Left Arm] Blood Pressure [Orthostatic Sitting Right Arm] Blood Pressure [Orthostatic Standing Right Arm] Blood Pressure [Right Arm] Blood Pressure Mean 74 Blood Pressure Mean [Right Arm] 02 Sat by Pulse Oximetry 97 99 Oxygen Delivery Method Room Air Lab Data Labs: Lab Results 04/04/24 11:30: WBC 8.9, RBC 3.72 L, Hgb 8.8 L, Hct 27.6 L, MCV 74.2 L, MCH 23.6 L, MCHC 31.7 L, RDW 17.3, Plt Count 545 H, MPV 8.0, Neut % (Auto) 58.3, Lymph % (Auto) 32.2, [place] % (Auto) 5.5, Eos % (Auto) 3.1, Baso % (Auto) 1.0, Neut # (Auto) 5.2, Lymph # (Auto) 2.9, [place] # (Auto) 0.5, Eos # (Auto) 0.3, Baso # (Auto) 0.1, PT 11.8, INR 1.10, APTT 25.1, D-Dimer < 0.25, Sodium 141, Potassium 2.9 L*, Chloride 98, Carbon Dioxide 29, Anion Gap 16.9 H, BUN 7, Creatinine 0.90, Estimated GFR 63, Est GFR ( Amer) 76, Glucose 222 H, Calcium 8.9, Magnesium 1.7, Total Bilirubin 0.6, AST 29, ALT 25, Alkaline Phosphatase 158 H, Troponin I < 0.01, NT-Pro-B Natriuret Pep 51.7, Total Protein 7.4, Albumin 4.2, Globulin 3.2, Albumin/Globulin Ratio 1.3, TSH 2.04, Thyroxine (T4) 9.9 04/04/24 11:44: VBG pH 7.42 H, VBG pCO2 43.4, VBG pO2 46.8 H, VBG HCO3 27.5, VBG Total CO2 28.8 H, VBG O2 Saturation 83.1 H, VBG Base Excess 3.0 H, VBG Lactic Acid 3.5 H 04/04/24 12:15: SARS-CoV-2 (PCR) Not detected, Influenza A Untype (PCR) Not detected, Influenza Type B (PCR) Not detected 04/04/24 14:50: Troponin I < 0.01 04/04/24 11:30 04/04/24 11:30 Response Orders (Tests/Meds): ED MEDICATIONS Discontinued Medications Generic Name Dose Route Start Last Admin Trade Name Freq PRN Reason Stop Dose Admin Albuterol/Ipratropium 3 ml 04/04/24 13:11 04/04/24 13:54 Ipratropium/Albuterol 3 Ml Neb IH 04/04/24 13:12 3 ml ONCE ONE Administration Lactated Ringer's 1,000 mls @ 999 mls/hr 04/04/24 12:21 04/04/24 12:31 Lactated Ringer's 1000 Ml Bag IV 04/04/24 13:21 999 mls/hr .Q1H1M ONE Administration Potassium Chloride/Water 100 mls @ 100 mls/hr 04/04/24 12:21 04/04/24 13:54 Potassium Chloride 10meq/100ml Ivpb IV 04/04/24 14:20 100 mls/hr Q1H FABIANA Administration Potassium Chloride 40 meq 04/04/24 12:21 04/04/24 12:31 Potassium Chloride 20meq Tab PO 04/04/24 12:22 40 meq ONCE ONE Administration Prednisone 40 mg 04/04/24 15:03 04/04/24 15:44 Prednisone 20mg Tab PO 04/04/24 15:04 Not Given ONCE ONE ORDERS Category Date Time Status CXR --portable [XR chest portable] Stat Exams 04/04/24 11:42 Completed Activated Partial Thrombo Time Stat Lab 04/04/24 11:30 Completed Complete Blood Count Auto Diff Stat Lab 04/04/24 11:30 Completed Comprehensive Metabolic Panel Stat Lab 04/04/24 11:30 Completed D-Dimer Stat Lab 04/04/24 11:30 Completed Lactic Acid Follow Up (RFLX 1) Stat Lab 04/04/24 16:04 Ordered Magnesium Stat Lab 04/04/24 11:30 Completed NT Pro Brain Natriuretic Pep. Stat Lab 04/04/24 11:30 Completed Prothrombin Time INR Stat Lab 04/04/24 11:30 Completed Rapid PCR Covid and Flu A/B Stat Lab 04/04/24 12:15 Completed T4 (Thyroxine) Stat Lab 04/04/24 11:30 Completed Thyroid Stimulating Hormone Stat Lab 04/04/24 11:30 Completed Troponin I Q3H Lab 04/04/24 14:50 Completed Troponin I Q3H Lab 04/04/24 17:45 Ordered Troponin I Stat Lab 04/04/24 11:30 Completed Venous Blood Gas Stat RT 04/04/24 11:44 Completed ECG Data Tracing #1: Attestation: I reviewed this ECG and interpreted as documented below: ECG Narrative: Sinus tachycardia with a ventricular rate of 114 bpm. Borderline right axis deviation. No acute ST changes concerning for ischemia at this time. Some motion artifact noted. ECG initial impression date: 04/04/24 ECG initial impression time: 11:34 MDM Narrative Medical Decision Narrative: In summary, this patient is a 63-year-old female presenting to the Emergency Department for evaluation of dyspnea on exertion, fatigue, lightheadedness, general weakness, and cough. Differential diagnoses considered include but are not limited to CHF exacerbation, COPD exacerbation, respiratory failure, pneumonia, viral syndrome, PE, ACS, dehydration, electrolyte derangements, symptomatic anemia. Ruling out the most morbid conditions drove assessment. It should be noted patient's history includes CAD, hypertension, hyperlipidemia, CKD, tobacco use disorder, and bronchitis which are likely not at goal therapy. This complicates all aspects of care by increasing patient's risk for morbidity. I reviewed patient's past medical records and noted recent anemia on lab evaluation 03/25/2024 with a hemoglobin of 8.9. She has been evaluated for presyncope in cardiology clinic at that time. On exam, the patient is resting calmly in bed in no acute distress. She is mildly tachycardic with sinus tachycardia on ECG but otherwise vitals are reassuring. She has an expiratory wheezing but no increased work of breathing. Workup included broad lab evaluation to evaluate for infectious, cardiac, or metabolic derangements as a cause of the patient's symptoms as well as chest x- ray and EKG. EKG is reassuring with the exception of sinus tachycardia. I independently interpreted x-ray prior to the radiologist read and noted acute focal consolidation, pneumothorax, or other concern. Please see their read for final interpretation. Labs were obtained that demonstrated hypokalemia, mildly elevated lactic acid, mild alkalosis without other acutely concerning abnormalities. Initial troponin negative. D-dimer negative. Orthostatic vital signs reassuring with the exception of increase in HR. Patient was ordered IV potassium replacement as well as a bolus of IV fluids. With this bolus of IV fluids, her heart rate did improve. Neb did seem to help her. Overall, patient has had improved symptoms after administration of DuoNeb, fluids, and potassium replacement. I feel that she likely has COPD exacerbation plus hypokalemia as cause of her symptoms. She has stable anemia, for which I feel she would benefit from further outpatient workup, but I do not see indication to admit her for this or administer blood transfusion today. At 1330, patient was placed in ED observation status pending second troponin and potassium replacement to determine whether or not the patient would be appropriate for discharge versus admission. The patient was provided serial reevaluations and cardiac monitoring while awaiting ultimate disposition. On multiple subsequent reassessments, the patient is resting comfortably with improvement in symptoms. She states she is feeling overall better. Vitals are reassuring and no increased work of breathing. Second troponin resulted and came back negative. At 1600, patient was deemed to be appropriate for discharge based on improvement in symptoms, reassuring workup and exam. I feel that she likely has a COPD exacerbation causing her cough and shortness of breath, so she was prescribed prednisone and doxycycline. Advised that she follow-up very closely with her primary care provider for monitoring of her hemoglobin as well as her potassium. She expressed understanding and agreement. Strict return precautions were given, and the patient was discharged after all questions were answered. <Nadeem Manuel MD - Last Filed: 04/04/24 16:05> Vital Signs Vital Signs: 04/04/24 11:42 04/04/24 11:44 04/04/24 12:00 Temperature 98.8 F Temperature Source Oral Pulse Rate 100 H Pulse Rate [Left Radial] 117 H Pulse Rate [Orthostatic Lying Left Radial] 106 H Pulse Rate [Orthostatic Sitting Left Radial] 111 H Pulse Rate [Orthostatic Standing Left Radial] 133 H Respiratory Rate 13 24 Blood Pressure 109/53 L Blood Pressure [Orthostatic Lying Left Arm] 106/60 L Blood Pressure [Orthostatic Sitting Right Arm] 117/58 L Blood Pressure [Orthostatic Standing Right Arm] 111/60 Blood Pressure [Right Arm] 140/73 Blood Pressure Mean Blood Pressure Mean [Right Arm] 95 02 Sat by Pulse Oximetry 98 92 L Oxygen Delivery Method Room Air Room Air 04/04/24 12:15 04/04/24 12:17 04/04/24 12:19 Temperature Temperature Source Pulse Rate 115 H 110 H 104 H Pulse Rate [Left Radial] Pulse Rate [Orthostatic Lying Left Radial] Pulse Rate [Orthostatic Sitting Left Radial] Pulse Rate [Orthostatic Standing Left Radial] Respiratory Rate 19 18 18 Blood Pressure 106/60 L 117/58 L 111/60 Blood Pressure [Orthostatic Lying Left Arm] Blood Pressure [Orthostatic Sitting Right Arm] Blood Pressure [Orthostatic Standing Right Arm] Blood Pressure [Right Arm] Blood Pressure Mean Blood Pressure Mean [Right Arm] 02 Sat by Pulse Oximetry 98 98 96 Oxygen Delivery Method Room Air Room Air Room Air 04/04/24 12:30 04/04/24 12:42 04/04/24 13:01 Temperature Temperature Source Pulse Rate 104 H 119 H 109 H Pulse Rate [Left Radial] Pulse Rate [Orthostatic Lying Left Radial] Pulse Rate [Orthostatic Sitting Left Radial] Pulse Rate [Orthostatic Standing Left Radial] Respiratory Rate 17 14 23 Blood Pressure 103/64 L 139/66 118/55 L Blood Pressure [Orthostatic Lying Left Arm] Blood Pressure [Orthostatic Sitting Right Arm] Blood Pressure [Orthostatic Standing Right Arm] Blood Pressure [Right Arm] Blood Pressure Mean Blood Pressure Mean [Right Arm] 02 Sat by Pulse Oximetry 96 97 98 Oxygen Delivery Method Room Air Room Air Room Air 04/04/24 13:30 04/04/24 14:00 04/04/24 14:30 Temperature Temperature Source Pulse Rate 111 H 104 H 106 H Pulse Rate [Left Radial] Pulse Rate [Orthostatic Lying Left Radial] Pulse Rate [Orthostatic Sitting Left Radial] Pulse Rate [Orthostatic Standing Left Radial] Respiratory Rate 17 19 20 Blood Pressure 117/69 111/59 L 127/71 Blood Pressure [Orthostatic Lying Left Arm] Blood Pressure [Orthostatic Sitting Right Arm] Blood Pressure [Orthostatic Standing Right Arm] Blood Pressure [Right Arm] Blood Pressure Mean 83 76 Blood Pressure Mean [Right Arm] 02 Sat by Pulse Oximetry 97 95 94 L Oxygen Delivery Method Room Air 04/04/24 15:00 04/04/24 15:31 Temperature Temperature Source Pulse Rate 110 H 104 H Pulse Rate [Left Radial] Pulse Rate [Orthostatic Lying Left Radial] Pulse Rate [Orthostatic Sitting Left Radial] Pulse Rate [Orthostatic Standing Left Radial] Respiratory Rate 16 19 Blood Pressure 116/80 116/53 L Blood Pressure [Orthostatic Lying Left Arm] Blood Pressure [Orthostatic Sitting Right Arm] Blood Pressure [Orthostatic Standing Right Arm] Blood Pressure [Right Arm] Blood Pressure Mean 74 Blood Pressure Mean [Right Arm] 02 Sat by Pulse Oximetry 97 99 Oxygen Delivery Method Room Air Lab Data Labs: Lab Results 04/04/24 11:30: WBC 8.9, RBC 3.72 L, Hgb 8.8 L, Hct 27.6 L, MCV 74.2 L, MCH 23.6 L, MCHC 31.7 L, RDW 17.3, Plt Count 545 H, MPV 8.0, Neut % (Auto) 58.3, Lymph % (Auto) 32.2, [place] % (Auto) 5.5, Eos % (Auto) 3.1, Baso % (Auto) 1.0, Neut # (Auto) 5.2, Lymph # (Auto) 2.9, [place] # (Auto) 0.5, Eos # (Auto) 0.3, Baso # (Auto) 0.1, PT 11.8, INR 1.10, APTT 25.1, D-Dimer < 0.25, Sodium 141, Potassium 2.9 L*, Chloride 98, Carbon Dioxide 29, Anion Gap 16.9 H, BUN 7, Creatinine 0.90, Estimated GFR 63, Est GFR ( Amer) 76, Glucose 222 H, Calcium 8.9, Magnesium 1.7, Total Bilirubin 0.6, AST 29, ALT 25, Alkaline Phosphatase 158 H, Troponin I < 0.01, NT-Pro-B Natriuret Pep 51.7, Total Protein 7.4, Albumin 4.2, Globulin 3.2, Albumin/Globulin Ratio 1.3, TSH 2.04, Thyroxine (T4) 9.9 04/04/24 11:44: VBG pH 7.42 H, VBG pCO2 43.4, VBG pO2 46.8 H, VBG HCO3 27.5, VBG Total CO2 28.8 H, VBG O2 Saturation 83.1 H, VBG Base Excess 3.0 H, VBG Lactic Acid 3.5 H 04/04/24 12:15: SARS-CoV-2 (PCR) Not detected, Influenza A Untype (PCR) Not detected, Influenza Type B (PCR) Not detected 04/04/24 14:50: Troponin I < 0.01 Response Orders (Tests/Meds): ED MEDICATIONS Discontinued Medications Generic Name Dose Route Start Last Admin Trade Name Freq PRN Reason Stop Dose Admin Albuterol/Ipratropium 3 ml 04/04/24 13:11 04/04/24 13:54 Ipratropium/Albuterol 3 Ml Neb IH 04/04/24 13:12 3 ml ONCE ONE Administration Lactated Ringer's 1,000 mls @ 999 mls/hr 04/04/24 12:21 04/04/24 12:31 Lactated Ringer's 1000 Ml Bag IV 04/04/24 13:21 999 mls/hr .Q1H1M ONE Administration Potassium Chloride/Water 100 mls @ 100 mls/hr 04/04/24 12:21 04/04/24 13:54 Potassium Chloride 10meq/100ml Ivpb IV 04/04/24 14:20 100 mls/hr Q1H FABIANA Administration Potassium Chloride 40 meq 04/04/24 12:21 04/04/24 12:31 Potassium Chloride 20meq Tab PO 04/04/24 12:22 40 meq ONCE ONE Administration Prednisone 40 mg 04/04/24 15:03 04/04/24 15:44 Prednisone 20mg Tab PO 04/04/24 15:04 Not Given ONCE ONE ORDERS Category Date Time Status CXR --portable [XR chest portable] Stat Exams 04/04/24 11:42 Completed Activated Partial Thrombo Time Stat Lab 04/04/24 11:30 Completed Complete Blood Count Auto Diff Stat Lab 04/04/24 11:30 Completed Comprehensive Metabolic Panel Stat Lab 04/04/24 11:30 Completed D-Dimer Stat Lab 04/04/24 11:30 Completed Lactic Acid Follow Up (RFLX 1) Stat Lab 04/04/24 16:04 Ordered Magnesium Stat Lab 04/04/24 11:30 Completed NT Pro Brain Natriuretic Pep. Stat Lab 04/04/24 11:30 Completed Prothrombin Time INR Stat Lab 04/04/24 11:30 Completed Rapid PCR Covid and Flu A/B Stat Lab 04/04/24 12:15 Completed T4 (Thyroxine) Stat Lab 04/04/24 11:30 Completed Thyroid Stimulating Hormone Stat Lab 04/04/24 11:30 Completed Troponin I Q3H Lab 04/04/24 14:50 Completed Troponin I Q3H Lab 04/04/24 17:45 Ordered Troponin I Stat Lab 04/04/24 11:30 Completed Venous Blood Gas Stat RT 04/04/24 11:44 Completed MDM Narrative Medical Decision Narrative: In summary, this patient is a 63-year-old female presenting to the Emergency Department for evaluation of dyspnea on exertion, fatigue, lightheadedness, general weakness, and cough. Differential diagnoses considered include but are not limited to CHF exacerbation, COPD exacerbation, respiratory failure, pneumonia, viral syndrome, PE, ACS, dehydration, electrolyte derangements, symptomatic anemia. Ruling out the most morbid conditions drove assessment. It should be noted patient's history includes CAD, hypertension, hyperlipidemia, CKD, tobacco use disorder, and bronchitis which are likely not at goal therapy. This complicates all aspects of care by increasing patient's risk for morbidity. I reviewed patient's past medical records and noted recent anemia on lab evaluation 03/25/2024 with a hemoglobin of 8.9. She has been evaluated for presyncope in cardiology clinic at that time. On exam, the patient is resting calmly in bed in no acute distress. She is mildly tachycardic with sinus tachycardia on ECG but otherwise vitals are reassuring. She has an expiratory wheezing but no increased work of breathing. Workup included broad lab evaluation to evaluate for infectious, cardiac, or metabolic derangements as a cause of the patient's symptoms as well as chest x- ray and EKG. EKG is reassuring with the exception of sinus tachycardia. I independently interpreted x-ray prior to the radiologist read and noted acute focal consolidation, pneumothorax, or other concern. Please see their read for final interpretation. Labs were obtained that demonstrated hypokalemia, mildly elevated lactic acid, mild alkalosis without other acutely concerning abnormalities. Initial troponin negative. D-dimer negative. Orthostatic vital signs reassuring with the exception of increase in HR. Patient was ordered IV potassium replacement as well as a bolus of IV fluids. With this bolus of IV fluids, her heart rate did improve. Neb did seem to help her. Overall, patient has had improved symptoms after administration of DuoNeb, fluids, and potassium replacement. I feel that she likely has COPD exacerbation plus hypokalemia as cause of her symptoms. She has stable anemia, for which I feel she would benefit from further outpatient workup, but I do not see indication to admit her for this or administer blood transfusion today. At 1330, patient was placed in ED observation status pending second troponin and potassium replacement to determine whether or not the patient would be appropriate for discharge versus admission. The patient was provided serial reevaluations and cardiac monitoring while awaiting ultimate disposition. Given reassuring workup and exam, it is felt that the patient is appropriate for discharge at this time. Total ED observation time was []. I had a [id number] visit with the patient when providing discharge instructions. The total time involved in discharging this patient was less than 30 minutes. On reassessment, patient had [] improvement after administration of []. At this time, patient was deemed to be appropriate for []. I had an interactive discussion with [] who advised []. The patient was given instructions for close outpatient follow-up, very strict return precautions, and the patient was discharged in stable condition with prescriptions for []. It should be noted that social factors including [] complicates care. We discussed []. Mar: I assumed primary responsibility for this patient after signout from previous physician. On my evaluation, patient resting comfortably in bed, feeling much better. Patient states []. Independent rotation of workup demonstrates no leukocytosis, stable anemia. Coags unremarkable, viral swab negative. D-dimer negative, initial troponin negative, potassium low at 2.9, this was repleted. VBG nonactionable with pH 7.4, CO2 43, bicarb 27. Lactic acid 3.5, patient given fluids for this. Chest x-ray without acute cardiopulmonary or airspace disease. On reassessment,
[2024-04-04] MEDS: POTASSIUM CHLORIDE 20MEQ TAB 40 MEQ PO (12:31)
[2024-04-04] MEDS: LACTATED RINGERS 1000ML 1,000 ML 999 ML IV (12:31)
[2024-04-04] MEDS: KCl 10mEq/100ml 100 ML 100 MEQ IV ×2 (12:31→13:54)
[2024-04-04 12:34] LABS: Thyroid Stimulating Hormone 2.04 uIU/mL (0.465-4.68)
[2024-04-04 12:43] LABS: Coronavirus 19, PCR Not Detected (NotDetected); Influenza A, PCR Not Detected (NotDetected); Influenza B, PCR Not Detected (NotDetected)
--- NOTE | 2024-04-04 12:54 | PC.NURSE ---
called lab to check about magnesium. they said they would add it on to the bloodwork drawn earlier. provided pt with a warm blanket.
[2024-04-04 13:21] LABS: Magnesium 1.7 mg/dl (1.6-2.3)
[2024-04-04] MEDS: IPRATROPIUM/ALBUTEROL 3 ML NEB IH (13:54)
[2024-04-04 15:53] LABS: Troponin I < 0.01 ng/ml (0.00-0.034)
[2024-04-04 16:04] LABS: Reflex Lactic Add Lactic Reflex
== END 2024-04-04 16:15 | disposition home or self-care (01) ==
PROVIDERS: Emergency Medicine; Emergency Provider Emergency Medicine; PCP Family Medicine
DX: J44.1 Chronic obstructive pulmonary disease with (acute) exacerbation (principal); R07.9 Chest pain, unspecified; E87.6 Hypokalemia; R06.2 Wheezing; R00.0 Tachycardia, unspecified; F17.210 Nicotine dependence, cigarettes, uncomplicated; I11.9 Hypertensive heart disease without heart failure; I25.119 Atherosclerotic heart disease of native coronary artery with unspecified angina pectoris; N18.9 Chronic kidney disease, unspecified; E78.5 Hyperlipidemia, unspecified
CPT/HCPCS: 71045; 80053; 82803; 83735; 83880; 84436; 84443; 84484; 85025; 85378; 85610; 85730; 87636; 93005; 96365; 96366; 99285; J7120

== ENCOUNTER 2024-04-11 14:25 | Outpatient (CLI) | payer MEDICARE, MEDICAID, SELFPAY ==
[2024-04-11 15:11] LABS: Basophils # 0.1 K/mm3 (0-0.2); Basophils % 0.7 % (0.1-2.0); Eosinophils # 0.4 K/mm3 (0.0-0.4); Eosinophils % 3.3 % (0.1-12.0); Hematocrit 27.6 % (37.0-47.0); Hemoglobin 8.5 g/dL (12.2-16.2); Lymphocytes # 4.1 K/mm3 (0.7-4.5); Lymphocytes % 38.8 % (10-50); Mean Corpuscular HGB Conc 30.7 g/dL (31.8-35.4); Mean Corpuscular Hemoglobin 22.5 pg (27.0-31.2); Mean Corpuscular Volume 73.2 fl (81-99); Mean Platelet Volume 7.9 fl (7.4-10.4); Monocytes # 0.4 K/mm3 (0.1-1.0); Monocytes % 3.8 % (1.7-9.3); Neutrophils # 5.6 K/mm3 (1.8-7.8); Neutrophils % 53.4 % (37.0-80.0); Platelet Count 599 K/mm3 (142-424); Red Blood Count 3.77 M/mm3 (4.20-5.40); Red Cell Distribution Width 17.3 % (11.5-17.5); White Blood Count 10.5 K/mm3 (4.8-10.8)
[2024-04-11 15:47] LABS: Anion Gap 12.9 mEq/L (5-15); Blood Urea Nitrogen 17 mg/dl (7-17); Calcium 9.2 mg/dl (8.4-10.2); Carbon Dioxide 31 mmol/L (22.0-30.0); Chloride 96 mmol/L (98-107); Estimated Glomerular Filt Rate 63 ml/min (>60); GFR (African American) 76 ML/MIN (>60); Glucose 124 mg/dl (74-100); Potassium 3.9 mmoL/L (3.5-5.1); Sodium 136 mmol/L (136-145)
== END 2024-04-11 23:59 | disposition home or self-care (01) ==
LOC: LAB 14:26
PROVIDERS: PCP Family Medicine; Visit Provider Nurse Practitioner
DX: R53.1 Weakness (principal); E87.6 Hypokalemia
CPT/HCPCS: 80048; 85025

== ENCOUNTER 2024-04-11 14:46 | Emergency (ER) | payer MEDICARE, MEDICAID, SELFPAY ==
[2024-04-11 15:10] VITALS: BP 104/47; PULSE 71; RESP 20; TEMP 37.5; O2SAT 96; BMI 32.4
--- NOTE | 2024-04-11 15:12 | ED_ITS ---
Discharge Plan Disposition Patient Disposition: Home, Self-Care Condition: Good Prescriptions Prescriptions: New cefdinir 300 mg capsule 300 mg PO BID Qty: 20 0RF No Action magnesium 30 mg tablet 30 mg PO DAILY B complex with C 20-folic acid 1 mg capsule 1 cap PO DAILY albuterol sulfate [ProAir HFA] 90 mcg/actuation HFA aerosol inhaler 2 inh INHALATION Q6H PRN (Reason: shortness of breath or wheezing) Qty: 8.5 10RF metformin 500 mg tablet 500 mg PO BID Qty: 60 2RF Hold Instructions: Resume on 11/16/23. gabapentin 800 mg tablet 800 mg PO TID Qty: 90 3RF atorvastatin 40 mg tablet 40 mg PO QDAY Qty: 90 3RF bisoprolol fumarate 5 mg tablet 2.5 mg PO DAILY Qty: 30 6RF losartan 25 mg tablet 25 mg PO DAILY Qty: 30 2RF clopidogrel [Plavix] 75 mg tablet 75 mg PO DAILY Qty: 30 2RF pantoprazole [Protonix] 40 mg tablet,delayed release (DR/EC) 40 mg PO DAILY Qty: 30 2RF amitriptyline 75 mg tablet 75 mg PO HS Qty: 90 3RF clonazepam 0.5 mg tablet 0.5 mg PO ONCE Qty: 30 3RF potassium chloride 10 mEq tablet,ER particles/crystals See Rx Instructions .ROUTE .COMPLEX Qty: 90 0RF Dose Instruction: TAKE 1 TABLET BY MOUTH ONCE DAILY WITH FOOD Rx Instructions: TAKE 1 TABLET BY MOUTH ONCE DAILY WITH FOOD levocetirizine 5 mg tablet 5 mg PO DAILY Qty: 90 0RF furosemide 40 mg tablet See Rx Instructions .ROUTE .COMPLEX Qty: 90 0RF Dose Instruction: TAKE 1 TABLET BY MOUTH DAILY NEEDED FOR EDEMA Rx Instructions: TAKE 1 TABLET BY MOUTH DAILY NEEDED FOR EDEMA duloxetine 60 mg capsule,delayed release(DR/EC) See Rx Instructions .ROUTE .COMPLEX Qty: 30 0RF Dose Instruction: TAKE 1 CAPSULE BY MOUTH DAILY FOR MOOD Rx Instructions: TAKE 1 CAPSULE BY MOUTH DAILY FOR MOOD fluticasone propionate 50 mcg/actuation spray,suspension See Rx Instructions .ROUTE .COMPLEX Rx Instructions: USE 2 SPRAYS IN EACH NOSTRIL ONCE A DAY SHAKE WELL prednisone 20 mg tablet 40 mg PO DAILY 5 Days Qty: 10 0RF doxycycline hyclate 100 mg tablet 100 mg PO BID 7 Days Qty: 14 0RF Referrals Follow up/Referrals: Malachi Byrd MD [Primary Care Provider] - See instructions Activity Restrictions/Add. Instructions Additional Instructions/Restrictions: Drink plenty of fluids. Take tylenol or ibuprofen for pain or fever. Take the medications as directed. Follow up with your regular doctor. GO TO THE ER FOR ANY WORSENING SYMPTOMS Clinical Impressions Clinical Impression: Strep throat Instructions Patient Instructions: DI for Strep Throat, Strep Throat Discharge ED Provider: Rene Esquivel [facility] General Stated complaint: blisters in throat Time Seen by Provider: 04/11/24 15:11 History of Present Illness Provider Complaint: She states that she has had sore throat for the past 3 days. Related Data Home Medications Medication Instructions Recorded Confirmed fluticasone propionate 50 See Rx Instructions .Route 08/04/23 03/25/24 mcg/actuation nasal .[employer] spray,suspension amitriptyline 75 mg tablet 75 mg PO DAILY 04/11/24 04/11/24 atorvastatin 40 mg tablet 40 mg PO DAILY 04/11/24 04/11/24 bisoprolol fumarate 5 mg tablet 5 mg PO DAILY 04/11/24 04/11/24 clonazepam 0.5 mg tablet 0.5 mg PO DAILY 04/11/24 04/11/24 clopidogrel 75 mg tablet 75 mg PO DAILY 04/11/24 04/11/24 duloxetine 60 mg capsule,delayed 60 mg PO DAILY 04/11/24 04/11/24 release duloxetine 60 mg capsule,delayed 60 mg PO DAILY 04/11/24 04/11/24 release furosemide 40 mg tablet 40 mg PO DAILY 04/11/24 04/11/24 gabapentin 800 mg tablet 800 mg PO DAILY 04/11/24 04/11/24 losartan 25 mg tablet 25 mg PO DAILY 04/11/24 04/11/24 pantoprazole 40 mg tablet,delayed 40 mg PO DAILY 04/11/24 04/11/24 release prasugrel 10 mg tablet 10 mg PO DAILY 04/11/24 04/11/24 Previous Rx's Medication Instructions Recorded albuterol sulfate 90 mcg/actuation 2 inh inhalation Q6H PRN shortness 04/28/23 aerosol inhaler (ProAir HFA) of breath or wheezing #8.5 grams metformin 500 mg tablet 500 mg PO BID #60 tabs 09/20/23 gabapentin 800 mg tablet 800 mg PO TID neuropathy #90 tabs 12/22/23 atorvastatin 40 mg tablet 40 mg PO QDAY Cholesterol #90 tabs 12/27/23 amitriptyline 75 mg tablet 75 mg PO HS Pain #90 tabs 01/09/24 clonazepam 0.5 mg tablet 0.5 mg PO ONCE Anxiety #30 tabs 01/22/24 bisoprolol fumarate 5 mg tablet 2.5 mg (1/2 x 5 mg) PO DAILY BLOOD 03/25/24 PRESSURE #30 tabs clopidogrel 75 mg tablet (Plavix) 75 mg PO DAILY #30 tabs 03/25/24 losartan 25 mg tablet 25 mg PO DAILY #30 tabs 03/25/24 pantoprazole 40 mg tablet,delayed 40 mg PO DAILY #30 tabs 03/25/24 release (Protonix) cefdinir 300 mg capsule 300 mg PO BID #20 caps 04/11/24 Allergies Allergy/AdvReac Type Severity Reaction Status Date / Time amoxicillin Allergy Intermediate I-RASH Verified 03/25/24 10:00 Penicillins [PENICILLINS] Allergy Unknown Verified 03/25/24 10:00 steroids AdvReac Uncoded 03/25/24 10:00 PFSH PFS Disclaimer: The information contained in this section may have been updated after the patient was seen, as this information can be updated by other users. Medical History Sinus tachycardia Abnormal cardiovascular stress test Angina pectoris Dyspnea Chest pain Neuropathic pain Sore throat Cervical spine fracture Left upper extremity numbness Bronchitis Abnormal PFT Tobacco abuse counseling Restrictive lung disease Smoking greater than 30 pack years Dyspnea on exertion COVID-19 virus test result unknown Encounter for laboratory testing for COVID-19 virus Strep throat HLD (hyperlipidemia) Tobacco abuse Surgical History History of total hysterectomy History of colonoscopy History of cardiac cath History of breast biopsy Family History Other Coronary artery disease Heart attack Social History Smoking Status: Never smoker alcohol intake: never substance use type: denies use current occupational status: disabled Travel in the last 8 weeks: None household members: none housing: apartment ROS Obtained: Yes All systems reviewed & no additional complaints except as documented Constitutional Constitutional: Reports chills and Reports fever(s) Eyes Eyes: Denies eye discharge ENT Ears, Nose, Mouth, and Throat: Reports as per HPI Cardiovascular Cardiovascular: Denies chest pain Respiratory Respiratory: Denies chest congestion and Reports cough Gastrointestinal Gastrointestingal: Reports nausea; Denies abdominal pain, constipation, cramping, diarrhea or vomiting Musculoskeletal Musculoskeletal: Denies arthralgias Integumentary/Breasts Skin/Breast: Denies rash Neurologic Neurologic: Denies paresthesias Physical Exam General General appearance: alert and in no apparent distress Head Head exam: atraumatic, normocephalic and normal inspection Eye Eye exam: Present normal appearance, PERRL and EOMI ENT ENT exam: Present mucous membranes moist and normal external ear exam Expanded ENT Exam TM/Canal exam: Bilateral TM: erythema and bulging Nose exam: Absent sinus tenderness Mouth exam: Present normal external inspection; Absent drooling Teeth exam: Present normal inspection Throat exam: Present tonsillar erythema, tonsillomegaly and tonsillar exudate Neck Neck exam: Present normal inspection, full ROM and trachea midline; Absent tenderness, meningismus or lymphadenopathy Chest Chest inspection: Present normal inspection and symmetric chest wall rise; Absent tenderness Respiratory Respiratory exam: Present normal lung sounds bilaterally; Absent respiratory distress, wheezes, stridor or accessory muscle use Cardiovascular Cardiovascular exam: Present regular rate and normal rhythm; Absent systolic murmur or diastolic murmur Abdominal Exam Abdominal exam: Present soft and normal bowel sounds; Absent distention, tenderness, guarding, rebound or rigidity Extremities Exam Extremities exam: Present normal inspection and normal capillary refill; Absent calf tenderness Back Exam Back exam: Present normal inspection and full ROM; Absent tenderness, CVA tenderness (R) or CVA tenderness (L) Neurological Exam Neurological exam: Present alert, oriented X3 and CN II-XII intact Psychiatric Psychiatric exam: Present normal affect and normal mood Skin Skin exam: Present warm, dry, intact and normal color Medical Decision Making Medical Records Medical records reviewed: No I reviewed the patient's medical records. Nader Inquiry Pt receiving controlled substance: No Lab Data Lab results reviewed: Yes I reviewed the patient's lab results.
[2024-04-11 15:19] LABS: UTC Strep Screen (Rapid) Positive (Negative)
[2024-04-11 15:30] VITALS: BP 104/47; PULSE 71; RESP 20; TEMP 37.5; O2SAT 96
== END 2024-04-11 15:34 | disposition home or self-care (01) ==
PROVIDERS: Emergency Provider Nurse Practitioner Family; PCP Family Medicine
DX: J02.0 Streptococcal pharyngitis (principal); R07.0 Pain in throat
CPT/HCPCS: 80048; 85025; 87880; 99212; 99214; G0463

== ENCOUNTER 2024-04-19 18:00 | Outpatient (CLI) | payer MEDICARE, MEDICAID, SELFPAY ==
[2024-04-19 18:52] LABS: Chloride 101 mmol/L (98-107); Sodium 140 mmol/L (136-145)
[2024-04-19 18:54] LABS: Alanine Aminotransferase 17 U/L (12-78); Alkaline Phosphatase 146 U/L (38-126); Aspartate Amino Transferase 20 U/L (14-36); Bilirubin,Total 0.4 mg/dl (0.2-1.3); Blood Urea Nitrogen 10 mg/dl (7-17); Estimated Glomerular Filt Rate 63 ml/min (>60); GFR (African American) 76 ML/MIN (>60)
[2024-04-19 18:55] LABS: Albumin Level 3.9 g/dl (3.5-5.0); Albumin/Globulin Ratio 1.3 (1.1-1.8); Calcium 9.2 mg/dl (8.4-10.2); Carbon Dioxide 29 mmol/L (22.0-30.0); Globulin 3.1 g/dL (1.3-3.2); Glucose 169 mg/dl (74-100); Iron 31 ug/dL (37-170)
[2024-04-19 19:04] LABS: Total Iron Binding Capacity 389 ug/dL (265-497)
[2024-04-19 19:13] LABS: Basophils # 0.1 K/mm3 (0-0.2); Basophils % 1.2 % (0.1-2.0); Eosinophils # 0.2 K/mm3 (0.0-0.4); Hematocrit 29.4 % (37.0-47.0); Hemoglobin 9.1 g/dL (12.2-16.2); Lymphocytes # 2.6 K/mm3 (0.7-4.5); Lymphocytes % 35.1 % (10-50); Mean Corpuscular HGB Conc 30.8 g/dL (31.8-35.4); Mean Corpuscular Hemoglobin 22.6 pg (27.0-31.2); Mean Corpuscular Volume 73.4 fl (81-99); Mean Platelet Volume 8.1 fl (7.4-10.4); Monocytes # 0.3 K/mm3 (0.1-1.0); Monocytes % 4.6 % (1.7-9.3); Neutrophils # 4.1 K/mm3 (1.8-7.8); Neutrophils % 56.1 % (37.0-80.0); Platelet Count 499 K/mm3 (142-424); Red Cell Distribution Width 17.5 % (11.5-17.5); White Blood Count 7.3 K/mm3 (4.8-10.8)
== END 2024-04-19 23:59 | disposition home or self-care (01) ==
LOC: LAB.DROPOF 04-20 09:00
PROVIDERS: PCP Family Medicine; Visit Provider Family Medicine
DX: D64.9 Anemia, unspecified (principal); R53.83 Other fatigue
CPT/HCPCS: 80053; 83540; 83550; 85025

== ENCOUNTER 2024-04-30 14:17 | Emergency (ER) | payer MEDICARE, MEDICAID, SELFPAY ==
[2024-04-30 14:25] VITALS: BP 138/85; PULSE 93; RESP 18; TEMP 36.8; O2SAT 98; BMI 32.4
--- NOTE | 2024-04-30 14:31 | XR_ITS ---
FINAL REPORT CLINICAL HISTORY: Right wrist pain COMPARISON: None FINDINGS: RIGHT WRIST Three views show no evidence of an acute, displaced fracture or dislocation of the visualized bony architecture. The joint spaces appear normal. IMPRESSION: Unremarkable exam. Reviewed, Interpreted and Dictated by Ervin Hough MD Transcribed by Patsy Judd Authenticated and [facility]
--- NOTE | 2024-04-30 14:31 | XR_ITS ---
FINAL REPORT CLINICAL HISTORY: Right hand pain COMPARISON: None FINDINGS: RIGHT HAND Three views demonstrate no acute fracture or dislocation. Mild degenerative changes of the interphalangeal joints. Osteopenia is noted The soft tissues are unremarkable. IMPRESSION: Mild degenerative changes. Reviewed, Interpreted and Dictated by Ervin Hough MD Transcribed by Patsy Judd Authenticated and [facility]
--- NOTE | 2024-04-30 14:46 | ED_ITS ---
Discharge Plan Disposition Patient Disposition: Home, Self-Care Condition: Good Prescriptions Prescriptions: No Action levocetirizine [Xyzal] 5 mg tablet 5 mg PO DAILY Qty: 90 3RF clonazepam 0.5 mg tablet 0.5 mg PO DAILY Qty: 30 5RF potassium chloride 10 mEq tablet extended release 10 meq PO DAILY Qty: 90 3RF gabapentin 800 mg tablet 800 mg PO TID Qty: 90 3RF aspirin 81 mg tablet,delayed release (DR/EC) 81 mg PO DAILY Qty: 30 2RF furosemide 40 mg tablet 40 mg PO DAILY Patient Comments: TAKE 1 TABLET BY MOUTH DAILY NEEDED FOR EDEMA atorvastatin 40 mg tablet 40 mg PO DAILY amitriptyline 75 mg tablet 75 mg PO DAILY bisoprolol fumarate 5 mg tablet 5 mg PO DAILY pantoprazole 40 mg tablet,delayed release (DR/EC) 40 mg PO DAILY duloxetine 60 mg capsule,delayed release(DR/EC) 60 mg PO DAILY Patient Comments: TAKE 1 CAPSULE BY MOUTH DAILY FOR MOOD prasugrel 10 mg tablet 10 mg PO DAILY Referrals Follow up/Referrals: Indio Miranda DO [Staff Physician] - See instructions Malachi Byrd MD [Primary Care Provider] - See instructions Activity Restrictions/Add. Instructions Additional Instructions/Restrictions: Rest the extremity, apply ice for 15 minutes as tolerated three or four times per day, Wear the fredy wrap for compression, Elevate the extremity as tolerated while you are resting. Take tylenol or ibuprofen for pain. Follow up with Dr. Miranda (orthopedics). I put in a referral but you need to call his office and schedule an appointment. Follow up with your regular doctor. GO TO THE ER FOR ANY WORSENING SYMPTOMS Clinical Impressions Clinical Impression: Contusion of right forearm, Right wrist sprain Instructions Patient Instructions: DI for Wrist Sprain, How to Apply an Elastic Wrap on Wrist Discharge ED Provider: Rene Esquivel [facility] General Stated complaint: AO 04/28, right arm bruising/swelling Mode of Arrival: Ambulatory Source of Information: Patient Limitations: No Limitations Time Seen by Provider: 04/30/24 14:45 HEENT Symptoms (Recalled from RN notes): No Resp Symptoms (Recalled from RN notes): No Skin Symptoms (Recalled from RN notes): No MS Symptoms (Recalled from RN notes): Yes Functional Status (Recalled from RN notes): n/a History of Present Illness Provider Complaint: Pt states that, last night, she was going into her kitchen but she walked too close to her grandson was while he was playing VR. He accidentally hit her on her right wrist with a controller. Her right wrist is swollen and hurts since then. Related Data Home Medications Medication Instructions Recorded Confirmed amitriptyline 75 mg tablet 75 mg PO DAILY 04/11/24 04/30/24 atorvastatin 40 mg tablet 40 mg PO DAILY 04/11/24 04/30/24 bisoprolol fumarate 5 mg tablet 5 mg PO DAILY 04/11/24 04/30/24 duloxetine 60 mg capsule,delayed 60 mg PO DAILY 04/11/24 04/30/24 release furosemide 40 mg tablet 40 mg PO DAILY 04/11/24 04/30/24 pantoprazole 40 mg tablet,delayed 40 mg PO DAILY 04/11/24 04/30/24 release prasugrel 10 mg tablet 10 mg PO DAILY 04/11/24 04/30/24 Previous Rx's Medication Instructions Recorded aspirin 81 mg tablet,delayed 81 mg PO DAILY #30 tabs 04/15/24 release clonazepam 0.5 mg tablet 0.5 mg PO DAILY #30 tabs 04/19/24 gabapentin 800 mg tablet 800 mg PO TID #90 tabs 04/19/24 levocetirizine 5 mg tablet (Xyzal) 5 mg PO DAILY #90 tabs 04/19/24 potassium chloride 10 mEq 10 meq PO DAILY #90 tabs 04/19/24 tablet,extended release Allergies Allergy/AdvReac Type Severity Reaction Status Date / Time amoxicillin Allergy Intermediate I-RASH Verified 04/30/24 14:33 Penicillins [PENICILLINS] Allergy Unknown Verified 04/30/24 14:33 steroids AdvReac Uncoded 04/30/24 13:14 Worker's Comp Is this a Worker's Comp case?: No [facility] Disclaimer: The information contained in this section may have been updated after the patient was seen, as this information can be updated by other users. Medical History CAD (coronary artery disease) Hypotension Sinus tachycardia Abnormal cardiovascular stress test Angina pectoris Dyspnea Chest pain Neuropathic pain Sore throat Cervical spine fracture Left upper extremity numbness Bronchitis Abnormal PFT Tobacco abuse counseling Restrictive lung disease Smoking greater than 30 pack years Dyspnea on exertion COVID-19 virus test result unknown Encounter for laboratory testing for COVID-19 virus Strep throat HLD (hyperlipidemia) Tobacco abuse Surgical History History of total hysterectomy History of colonoscopy History of cardiac cath History of breast biopsy Family History Other Coronary artery disease Heart attack Social History Smoking Status: Current every day smoker tobacco type: cigarettes packs per day: 1 alcohol intake: never substance use type: denies use current occupational status: disabled Travel in the last 8 weeks: None household members: none housing: apartment ROS Obtained: Yes All systems reviewed & no additional complaints except as documented Constitutional Constitutional: Denies chills and Denies fever(s) Eyes Eyes: Denies eye discharge ENT Ears, Nose, Mouth, and Throat: Denies dizziness, Denies otalgia and Denies sore throat Cardiovascular Cardiovascular: Denies chest pain Respiratory Respiratory: Denies shortness of breath, Denies chest congestion, Denies cough, Denies stridor and Denies wheezing Gastrointestinal Gastrointestingal: Denies nausea or vomiting Musculoskeletal Musculoskeletal: Reports as per HPI Integumentary/Breasts Skin/Breast: Denies redness, Denies rash and Denies wounds Neurologic Neurologic: Denies dizziness and Denies paresthesias Allergic/Immunologic Allergic/Immunologic: Denies wheezing Physical Exam General General appearance: alert and in no apparent distress Head Head exam: atraumatic, normocephalic and normal inspection Eye Eye exam: Present normal appearance, PERRL and EOMI ENT ENT exam: Present normal exam, normal oropharynx, mucous membranes moist, TM's normal bilaterally and normal external ear exam Neck Neck exam: Present normal inspection, full ROM and trachea midline; Absent meningismus or lymphadenopathy Chest Chest inspection: Present normal inspection and symmetric chest wall rise; Absent tenderness Respiratory Respiratory exam: Present normal lung sounds bilaterally; Absent respiratory distress Cardiovascular Cardiovascular exam: Present regular rate and normal rhythm; Absent JVD Abdominal Exam Abdominal exam: Present soft and normal bowel sounds; Absent distention, tenderness or guarding Extremities Exam Extremities exam: Present normal capillary refill; Absent calf tenderness Expanded Upper Extremity Exam Right: Arm exam: Present normal inspection and full ROM; Absent tenderness Elbow exam: Present normal inspection and full ROM; Absent tenderness, pain w/ pronation/supination or tenderness over radial head Forearm/Wrist exam: Present full ROM, tenderness and swelling; Absent abrasion, laceration, ecchymosis, deformity, crepitus, dislocation, erythema, tenderness over anatomical snuff box or pain with axial thumb loading Hand exam: Present normal inspection and full ROM; Absent tenderness, swelling, abrasion, laceration, skin avulsion, ecchymosis, deformity, crepitus, dislocation, erythema, amputation, nail avulsion or subungual hematoma Neuromotor exam: Normal wrist extension, thumb opposition, thumb IP flexion, thumb adduction and fingers 2-5 abduction Neurosensory exam: Normal radial nerve, ulnar nerve and median nerve Vascular exam: Normal capillary refill, radial pulse and ulnar pulse Back Exam Back exam: Present normal inspection; Absent tenderness Neurological Exam Neurological exam: Present alert and oriented X3 Psychiatric Psychiatric exam: Present normal affect and normal mood Skin Skin exam: Present warm, dry, intact and normal color Lymphatic Lymphatic Findings: no adenopathy Medical Decision Making Medical Records Medical records reviewed: No I reviewed the patient's medical records. Nader Inquiry Pt receiving controlled substance: No Vital Signs: 04/30/24 14:25 Temperature 98.3 F Temperature Source Oral Pulse Rate [Right Radial] 93 H Respiratory Rate 18 Blood Pressure [Right Arm] 138/85 Blood Pressure Mean [Right Arm] 102 Blood Pressure Source [Right Arm] Automatic Cuff Blood Pressure Position [Right Arm] Sitting 02 Sat by Pulse Oximetry 98 Oxygen Delivery Method Room Air Orders (Tests/Meds): ORDERS Category Date Time Status Wrist XR right minimum 3 views [XR wrist RT min 3V] Exams 04/30/24 14:31 Ordered Stat XR hand RT min 3V Stat Exams 04/30/24 14:31 Ordered Radiology Data #1: Image(s): Wrist Image Reviewed: Yes I reviewed the patient's radiology image and Yes I have reviewed radiologist's interpretation Preliminary Findings: Normal/NAD and No Fracture Seen Accession No. : [id number] Patient Name / ID : Tanika Lopez / [id number] Exam Date : 04/30/2024 14:40:45 ( Final ) Study Comment : Sex / Age : F / 4 Creator : Jose Hough MD Dictator : Porcelain Enameler : Musical String Maker : Jose Hough MD Approver2 : Report Date : 04/30/2024 17:52:10 My Comment : FINAL REPORT CLINICAL HISTORY: Right wrist pain COMPARISON: None FINDINGS: RIGHT WRIST Three views show no evidence of an acute, displaced fracture or dislocation of the visualized bony architecture. The joint spaces appear normal. IMPRESSION: Unremarkable exam. Reviewed, Interpreted and Dictated by Ervin Hough MD Transcribed by Patsy Judd Authenticated and [facility] Procedures Risk/Benefits of Procedure(s) Were Explained: Yes Orthopedic Splinting/Casting Injury #1: Side: right Upper Extremity Injury Location: forearm, wrist and hand Upper Extremity Immobilizer: Fredy wrap and applied by nurse/dr riddle Post Cast/Splinting Neuro Status: intact and no change Post Cast/Splinting Vasc Status: intact and no change
[2024-04-30 15:30] VITALS: BP 138/85; PULSE 93; RESP 18; TEMP 36.8; O2SAT 98
== END 2024-04-30 15:30 | disposition home or self-care (01) ==
PROVIDERS: Emergency Provider Nurse Practitioner Family; PCP Family Medicine
DX: S63.501A Unspecified sprain of right wrist, initial encounter (principal); S50.11XA Contusion of right forearm, initial encounter; W50.0XXA Accidental hit or strike by another person, initial encounter
CPT/HCPCS: 73110; 73130; 99212; 99213; G0463

== ENCOUNTER 2024-05-13 15:21 | Outpatient (CLI) | payer MEDICARE, MEDICAID, SELFPAY ==
--- NOTE | 2024-05-13 15:27 | XR_ITS ---
FINAL REPORT CLINICAL HISTORY: Foot Pain COMPARISON: 10/04/2023 FINDINGS: LEFT FOOT Three views of the left foot demonstrate no acute fracture or dislocation. There is a mild hallux valgus deformity. Mild degenerative changes are noted. The soft tissues are unremarkable. IMPRESSION: Degenerative/chronic changes without acute bony abnormality. Findings are similar to the prior study. Reviewed, Interpreted and Dictated by Avtar Alcazar III, MD Transcribed by Patsy Judd Authenticated and [facility]
--- NOTE | 2024-05-13 15:27 | XR_ITS ---
FINAL REPORT CLINICAL HISTORY: Foot Pain COMPARISON: None FINDINGS: RIGHT FOOT 3 views of the right foot were obtained. There is no acute fracture or dislocation. Hallux valgus deformity is noted. There is mild degenerative change. Soft tissues are unremarkable. IMPRESSION: Degenerative/chronic change without acute bony abnormality. Reviewed, Interpreted and Dictated by Avtar Alcazar III, MD Transcribed by Patsy Judd Authenticated and [facility]
[2024-05-13 16:18] LABS: Basophils # 0.1 K/mm3 (0-0.2); Basophils % 0.9 % (0.1-2.0); Eosinophils # 0.2 K/mm3 (0.0-0.4); Eosinophils % 2.2 % (0.1-12.0); Hemoglobin 9.6 g/dL (12.2-16.2); Lymphocytes # 3.1 K/mm3 (0.7-4.5); Lymphocytes % 33.4 % (10-50); Mean Corpuscular HGB Conc 31.9 g/dL (31.8-35.4); Mean Corpuscular Hemoglobin 24.5 pg (27.0-31.2); Mean Corpuscular Volume 76.6 fl (81-99); Mean Platelet Volume 7.5 fl (7.4-10.4); Monocytes # 0.5 K/mm3 (0.1-1.0); Monocytes % 5.1 % (1.7-9.3); Neutrophils # 5.3 K/mm3 (1.8-7.8); Neutrophils % 58.4 % (37.0-80.0); Platelet Count 485 K/mm3 (142-424); Red Blood Count 3.92 M/mm3 (4.20-5.40); Red Cell Distribution Width 23.2 % (11.5-17.5); White Blood Count 9.1 K/mm3 (4.8-10.8)
[2024-05-13 17:02] LABS: Erythrocyte Sedimentation Rate 68 mm/hr (0-30)
[2024-05-13 17:54] LABS: Alanine Aminotransferase 18 U/L (12-78); Albumin Level 4.2 g/dl (3.5-5.0); Albumin/Globulin Ratio 1.4 (1.1-1.8); Alkaline Phosphatase 139 U/L (38-126); Anion Gap 11.6 mEq/L (5-15); Aspartate Amino Transferase 25 U/L (14-36); Bilirubin,Total 0.6 mg/dl (0.2-1.3); Blood Urea Nitrogen 9 mg/dl (7-17); Calcium 9.4 mg/dl (8.4-10.2); Carbon Dioxide 31 mmol/L (22.0-30.0); Chloride 100 mmol/L (98-107); Estimated Glomerular Filt Rate 72 ml/min (>60); GFR (African American) 87 ML/MIN (>60); Globulin 2.9 g/dL (1.3-3.2); Glucose 212 mg/dl (74-100); Potassium 3.6 mmoL/L (3.5-5.1); Sodium 139 mmol/L (136-145); Total Protein,Serum 7.1 g/dl (6.3-8.2)
[2024-05-13 19:27] LABS: C-Reactive Protein 9.7 mg/L (0-4)
== END 2024-05-13 23:59 | disposition home or self-care (01) ==
LOC: LAB 15:24
PROVIDERS: PCP Family Medicine; Visit Provider Nurse Practitioner
DX: R60.9 Edema, unspecified (principal); M79.673 Pain in unspecified foot
CPT/HCPCS: 36415; 73630; 80053; 85025; 85651; 86140

== ENCOUNTER 2024-06-03 19:30 | Outpatient (CLI) | payer MEDICARE, MEDICAID, SELFPAY ==
[2024-06-03 20:28] LABS: Alanine Aminotransferase 24 U/L (12-78); Albumin Level 3.7 g/dl (3.5-5.0); Albumin/Globulin Ratio 1.2 (1.1-1.8); Alkaline Phosphatase 169 U/L (38-126); Anion Gap 11.6 mEq/L (5-15); Aspartate Amino Transferase 30 U/L (14-36); Bilirubin,Total 0.9 mg/dl (0.2-1.3); Blood Urea Nitrogen 10 mg/dl (7-17); Calcium 9.2 mg/dl (8.4-10.2); Carbon Dioxide 32 mmol/L (22.0-30.0); Chloride 99 mmol/L (98-107); Estimated Glomerular Filt Rate 84 ml/min (>60); GFR (African American) 102 ML/MIN (>60); Globulin 3.2 g/dL (1.3-3.2); Glucose 132 mg/dl (74-100); Potassium 3.6 mmoL/L (3.5-5.1); Sodium 139 mmol/L (136-145); Total Protein,Serum 6.9 g/dl (6.3-8.2)
== END 2024-06-03 23:59 | disposition home or self-care (01) ==
LOC: LAB.DROPOF 19:32
PROVIDERS: PCP Family Medicine; Visit Provider Family Medicine
DX: I11.9 Hypertensive heart disease without heart failure (principal); N18.9 Chronic kidney disease, unspecified
CPT/HCPCS: 80053

== ENCOUNTER 2024-06-13 10:48 | Outpatient (CLI) | payer MEDICARE, MEDICAID, SELFPAY ==
[2024-06-13 19:26] LABS: Basophils # 0.1 K/mm3 (0-0.2); Basophils % 1.1 % (0.1-2.0); Eosinophils # 0.3 K/mm3 (0.0-0.4); Eosinophils % 4.3 % (0.1-12.0); Hematocrit 35.5 % (37.0-47.0); Hemoglobin 11.3 g/dL (12.2-16.2); Lymphocytes # 2.9 K/mm3 (0.7-4.5); Lymphocytes % 38.5 % (10-50); Mean Corpuscular Hemoglobin 27.3 pg (27.0-31.2); Mean Corpuscular Volume 85.4 fl (81-99); Mean Platelet Volume 8.2 fl (7.4-10.4); Monocytes # 0.4 K/mm3 (0.1-1.0); Monocytes % 5.8 % (1.7-9.3); Neutrophils # 3.8 K/mm3 (1.8-7.8); Neutrophils % 50.3 % (37.0-80.0); Platelet Count 476 K/mm3 (142-424); Red Blood Count 4.15 M/mm3 (4.20-5.40); Red Cell Distribution Width 20.7 % (11.5-17.5); White Blood Count 7.5 K/mm3 (4.8-10.8)
[2024-06-13 19:35] LABS: Albumin Level 4.1 g/dl (3.5-5.0); Chloride 98 mmol/L (98-107)
[2024-06-13 19:36] LABS: Potassium 3.1 mmoL/L (3.5-5.1); Sodium 140 mmol/L (136-145)
[2024-06-13 19:38] LABS: Alanine Aminotransferase 21 U/L (12-78); Anion Gap 10.1 mEq/L (5-15); Aspartate Amino Transferase 26 U/L (14-36); Blood Urea Nitrogen 11 mg/dl (7-17); Carbon Dioxide 35 mmol/L (22.0-30.0); Estimated Glomerular Filt Rate 63 ml/min (>60); GFR (African American) 76 ML/MIN (>60)
[2024-06-13 19:39] LABS: Albumin/Globulin Ratio 1.4 (1.1-1.8); Alkaline Phosphatase 164 U/L (38-126); Bilirubin,Total 0.7 mg/dl (0.2-1.3); Calcium 8.6 mg/dl (8.4-10.2); Glucose 141 mg/dl (74-100); Total Protein,Serum 7.1 g/dl (6.3-8.2)
== END 2024-06-13 23:59 | disposition home or self-care (01) ==
LOC: LAB.DROPOF 06-14 10:49
PROVIDERS: PCP Family Medicine; Visit Provider Family Medicine
DX: E78.5 Hyperlipidemia, unspecified (principal); E66.09 Other obesity due to excess calories; Z68.31 Body mass index [BMI] 31.0-31.9, adult
CPT/HCPCS: 80053; 85025

== ENCOUNTER 2024-07-04 18:28 | Emergency (ER) | payer MEDICARE, MEDICAID, SELFPAY ==
[2024-07-04 18:28] VITALS: BP 153/88; PULSE 85; RESP 21; TEMP 37.1; O2SAT 97; BMI 29.9
--- NOTE | 2024-07-04 18:32 | ECG_ITS ---
APPROVED REPORT Exam: Resting ECG HR:87 bpm ECG Measurements Heart Rate 87 AXES KS 125 P 68 QRSd 90 QRS 75 QT 379 T 64 QTc 424 Conclusion Sinus rhythm, ST depressions in septal lateral leads, these are chronic Electronically signed by : BENNY GUERRERO, 07/04/2024 21:53:54
--- NOTE | 2024-07-04 18:32 | PC.NURSE ---
PA AT BEDSIDE
--- NOTE | 2024-07-04 18:46 | CT_ITS ---
PROCEDURE INFORMATION: Exam: CT Head Without Contrast Exam date and time: 07/04/2024 7:02 PM Age: 63 years old Clinical indication: Dizziness and other: Nausea; Additional info: Dizziness, history of head trauma TECHNIQUE: Imaging protocol: Computed tomography of the head without contrast. Radiation optimization: All CT scans at this facility use at least one of these dose optimization techniques: automated exposure control; mA and/or kV adjustment per patient size (includes targeted exams where dose is matched to clinical indication); or iterative reconstruction. COMPARISON: No relevant prior studies available. FINDINGS: Brain: Normal. No hemorrhage. Unremarkable white matter. No mass effect. Cerebral ventricles: No ventriculomegaly. Paranasal sinuses: Visualized sinuses are unremarkable. No fluid levels. Mastoid air cells: Visualized mastoid air cells are well aerated. Bones: Unremarkable. No acute fracture. Soft tissues: Unremarkable. IMPRESSION: No acute intracranial abnormality.
--- NOTE | 2024-07-04 18:46 | XR_ITS ---
PROCEDURE INFORMATION: Exam: XR Chest Exam date and time: 07/04/2024 6:56 PM Age: 63 years old Clinical indication: Shortness of breath; Additional info: * TECHNIQUE: Imaging protocol: Radiologic exam of the chest. Views: 1 view. COMPARISON: CR XR CHEST PORTABLE 04/04/2024 11:47 AM FINDINGS: Lungs: No evidence of acute pulmonary disease or infiltrates Pleural spaces: No large effusion or pneumothorax. Heart/Mediastinum: Stable cardiac and mediastinal contours. Diaphragm: There is elevation of the right hemidiaphragm. Bones/joints: No evidence of acute osseous abnormalities within the visualized portions of the thoracic spine and ribs. Osseous structures appear appropriate for patient age. IMPRESSION: No dense parenchymal consolidation, pleural effusion, or pneumothorax.
--- NOTE | 2024-07-04 18:50 | [facility].EDCP ---
Discharge Plan Prescriptions Prescriptions: No Action clindamycin HCl 300 mg capsule 300 mg PO TID 14 Days Qty: 42 0RF aspirin 81 mg tablet,delayed release (DR/EC) 81 mg PO DAILY Qty: 30 2RF fluticasone propionate 50 mcg/actuation spray,suspension 2 spray intranasal DAILY PRN (Reason: ALLERGIES) Qty: 16 0RF torsemide 20 mg tablet 20 mg PO BID Qty: 60 2RF Rx Instructions: bid until seen back in the doctor's office be sure to take potassium daily atorvastatin 40 mg tablet 40 mg PO DAILY Qty: 90 1RF amitriptyline 75 mg tablet 75 mg PO DAILY Qty: 90 1RF bisoprolol fumarate 5 mg tablet 5 mg PO DAILY Qty: 90 0RF duloxetine 60 mg capsule,delayed release(DR/EC) 60 mg PO DAILY Qty: 90 1RF Patient Comments: TAKE 1 CAPSULE BY MOUTH DAILY FOR MOOD levocetirizine [Xyzal] 5 mg tablet 5 mg PO DAILY Qty: 90 3RF pantoprazole 40 mg tablet,delayed release (DR/EC) 40 mg PO DAILY Qty: 90 0RF potassium chloride 10 mEq tablet extended release 20 meq PO DAILY Qty: 90 3RF prasugrel 10 mg tablet See Rx Instructions .ROUTE .COMPLEX Qty: 30 5RF Dose Instruction: TAKE 1 TABLET BY MOUTH ONCE DAILY Rx Instructions: TAKE 1 TABLET BY MOUTH ONCE DAILY clonazepam 0.5 mg tablet 0.5 mg PO DAILY Qty: 30 5RF gabapentin 800 mg tablet 800 mg PO TID Qty: 90 3RF Referrals Follow up/Referrals: Provider,Referral, MD [Primary Care Provider] - See instructions Print Language Print Language: Polish Discharge ED Provider: Nadeem Manuel General Stated Complaint: Nausea and Vomiting Time Seen by Provider: 07/04/24 18:43 Related Data Previous Rx's ?Medication ?Instructions ?Recorded clindamycin HCl 300 mg capsule 300 mg PO TID infection 14 days 05/13/24 #42 caps amitriptyline 75 mg tablet 75 mg PO DAILY #90 tabs 06/25/24 aspirin 81 mg tablet,delayed 81 mg PO DAILY #30 tabs 06/25/24 release atorvastatin 40 mg tablet 40 mg PO DAILY #90 tabs 06/25/24 bisoprolol fumarate 5 mg tablet 5 mg PO DAILY #90 tabs 06/25/24 duloxetine 60 mg capsule,delayed 60 mg PO DAILY #90 caps 06/25/24 release fluticasone propionate 50 2 spray intranasal DAILY PRN 06/25/24 mcg/actuation nasal ALLERGIES #16 grams spray,suspension levocetirizine 5 mg tablet (Xyzal) 5 mg PO DAILY #90 tabs 06/25/24 pantoprazole 40 mg tablet,delayed 40 mg PO DAILY #90 tabs 06/25/24 release potassium chloride 10 mEq 20 meq (2 x 10 mEq) PO DAILY #90 06/25/24 tablet,extended release tabs prasugrel 10 mg tablet See Rx Instructions .Route 06/25/24 .COMPLEX #30 tabs torsemide 20 mg tablet 20 mg PO BID #60 tabs 06/25/24 clonazepam 0.5 mg tablet 0.5 mg PO DAILY #30 tabs 06/26/24 gabapentin 800 mg tablet 800 mg PO TID #90 tabs 06/26/24 Allergies Allergy/AdvReac Type Severity Reaction Status Date / Time amoxicillin Allergy Intermediate I-RASH Verified 06/13/24 14:36 Penicillins [PENICILLINS] Allergy Unknown Verified 06/13/24 14:36 steroids AdvReac Uncoded 06/13/24 14:36 [facility] Disclaimer: The information contained in this section may have been updated after the patient was seen, as this information can be updated by other users. Medical History CAD (coronary artery disease) Hypotension Sinus tachycardia Abnormal cardiovascular stress test Angina pectoris Dyspnea Chest pain Neuropathic pain Sore throat Cervical spine fracture Left upper extremity numbness Bronchitis Abnormal PFT Tobacco abuse counseling Restrictive lung disease Smoking greater than 30 pack years Dyspnea on exertion COVID-19 virus test result unknown Encounter for laboratory testing for COVID-19 virus Strep throat HLD (hyperlipidemia) Tobacco abuse Surgical History History of total hysterectomy History of colonoscopy History of cardiac cath History of breast biopsy Family History Other Coronary artery disease Heart attack Social History Smoking Status: Current every day smoker tobacco type: cigarettes packs per day: 1 alcohol intake: never substance use type: denies use current occupational status: disabled Travel in the last 8 weeks: None household members: none housing: apartment Medical Decision Making Response Orders (Tests/Meds): ED MEDICATIONS Generic Name Dose Route Start Last Admin Trade Name Zully PRN Reason Stop Dose Admin Lactated Ringer's 1,000 mls @ 999 mls/hr 07/04/24 18:46 Lactated Ringer's 1000 Ml Bag IV 07/04/24 19:46 .Q1H1M ONE ORDERS Category Date Time Status CT head/brain wo con Stat Cat Scan 07/04/24 18:46 Ordered CXR 2 view (NOT portable) [XR chest 2V] Stat Exams 07/04/24 18:46 Ordered Complete Blood Count Auto Diff Stat Lab 07/04/24 18:46 Ordered Comprehensive Metabolic Panel Stat Lab 07/04/24 18:46 Ordered Drug Screen,Urine Stat Lab 07/04/24 18:46 Ordered Lactic Acid Stat Lab 07/04/24 18:46 Ordered Magnesium Stat Lab 07/04/24 18:46 Ordered Troponin I Q3H Lab 07/04/24 22:00 Ordered Troponin I Q3H Lab 07/05/24 01:00 Ordered Troponin I Stat Lab 07/04/24 18:46 Ordered Urinalysis and Microscopic Stat Lab 07/04/24 18:47 Ordered ECG Data Tracing #1: Attestation: I reviewed this ECG and interpreted as documented below: (Sinus rhythm 87 beats a minute with mild ST depressions in septal lateral leads with no reciprocal change. GA 125, QRS 90, QTc 424)
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
[2024-07-04 19:03] LABS: Basophils # 0.1 K/mm3 (0-0.2); Basophils % 0.8 % (0.1-2.0); Eosinophils # 0.1 K/mm3 (0.0-0.4); Eosinophils % 0.7 % (0.1-12.0); Hematocrit 38.6 % (37.0-47.0); Hemoglobin 12.5 g/dL (12.2-16.2); Lymphocytes # 2.2 K/mm3 (0.7-4.5); Mean Corpuscular HGB Conc 32.5 g/dL (31.8-35.4); Mean Corpuscular Hemoglobin 28.1 pg (27.0-31.2); Mean Corpuscular Volume 86.6 fl (81-99); Mean Platelet Volume 7.9 fl (7.4-10.4); Monocytes # 0.4 K/mm3 (0.1-1.0); Monocytes % 5.2 % (1.7-9.3); Neutrophils # 5.7 K/mm3 (1.8-7.8); Neutrophils % 67.3 % (37.0-80.0); Platelet Count 429 K/mm3 (142-424); Red Blood Count 4.45 M/mm3 (4.20-5.40); Red Cell Distribution Width 18.4 % (11.5-17.5); White Blood Count 8.4 K/mm3 (4.8-10.8)
[2024-07-04 19:12] LABS: VBG Base Excess -0.1 mmol/L (-2.4-2.3); VBG HCO3 23.7 mmol/L (23-30); VBG Oxygen Saturation 80.5 % (50-70); VBG PCO2 33.9 mmol/L (35-51); VBG PH 7.46 mmol/L (7.31-7.41); VBG PO2 42.5 mmol/L (28-40); VBG Total CO2 24.7 mmol/L (23-27)
[2024-07-04 19:14] LABS: Lactate Venous 3.2 mmol/L (0.4-2.0)
[2024-07-04] MEDS: LACTATED RINGERS 1000ML 1,000 ML 999 ML IV (19:33)
[2024-07-04] MEDS: ONDANSETRON 4MG/2ML VIAL 4 MG IV (19:36)
[2024-07-04 19:50] LABS: Lactic Acid 2.8 mmol/L (0.7-2.1); Troponin I < 0.01 ng/ml (0.00-0.034)
[2024-07-04 19:51] LABS: Alanine Aminotransferase 30 U/L (12-78); Albumin Level 4.6 g/dl (3.5-5.0); Albumin/Globulin Ratio 1.3 (1.1-1.8); Alkaline Phosphatase 152 U/L (38-126); Aspartate Amino Transferase 33 U/L (14-36); Bilirubin,Total 0.8 mg/dl (0.2-1.3); Blood Urea Nitrogen 10 mg/dl (7-17); Calcium 9.2 mg/dl (8.4-10.2); Carbon Dioxide 27 mmol/L (22.0-30.0); Chloride 101 mmol/L (98-107); Creatinine Clearance Estimated 72 mL/min (50-200); Estimated Glomerular Filt Rate 84 ml/min (>60); GFR (African American) 102 ML/MIN (>60); Globulin 3.5 g/dL (1.3-3.2); Glucose 152 mg/dl (74-100); Magnesium 1.7 mg/dl (1.6-2.3); Sodium 138 mmol/L (136-145); Total Protein,Serum 8.1 g/dl (6.3-8.2)
[2024-07-04] MEDS: MECLIZINE 25MG TABLET 50 MG PO (20:03)
[2024-07-04 20:06] VITALS: BP 137/73; PULSE 82; RESP 20; O2SAT 97
[2024-07-04] MEDS: POTASSIUM CHLORIDE 20MEQ TAB 60 MEQ PO (20:14)
[2024-07-04 21:23] LABS: Microscopic, Urine URINE MICROSCOPIC (MICROSCOPIC)
[2024-07-04 21:28] LABS: Appearance,Urine CLEAR (Clear); Bilirubin,Urine Negative (Negative); Blood, Urine Negative (Negative); Color,Urine YELLOW (Yellow); Glucose,Urine (UA) Negative (Negative); Ketones,Urine Negative (Negative); Leukocyte Esterase,Urine Negative (Negative); Nitrate,Urine Negative (Negative); Protein,Urine Negative (Negative); Urobilinogen,Urine 0.2 EU/dl (0.2)
[2024-07-04 21:37] LABS: Bacteria,Urine Trace /lpf
[2024-07-04 21:41] LABS: Amphetamine/Metha Screen,Urine Negative ng/ml (<1000)
[2024-07-04 21:42] LABS: Barbiturates Screen,Urine Negative ng/ml (<200); Benzodiazepines Screen,Urine Negative ng/ml (<200)
[2024-07-04 21:43] LABS: Cannabinoid Screen,Urine Positive ng/ml (<50)
[2024-07-04 21:44] LABS: Cocaine Screen,Urine Negative ng/ml (<300); Methadone Screen,Urine Negative ng/ml (<300)
[2024-07-04 21:45] LABS: Opiate Screen,Urine Negative ng/ml (<300); Phencyclidine Screen,Urine Negative ng/ml (<25)
[2024-07-04 22:12] VITALS: BP 143/85; PULSE 86; RESP 20; TEMP 36.8; O2SAT 98
[2024-07-04 23:15] LABS: Reflex Lactic Add Lactic Reflex
== END 2024-07-04 22:14 | disposition home or self-care (01) ==
PROVIDERS: Physician Assistant; Emergency Provider Emergency Medicine
DX: R42 Dizziness and giddiness (principal); E87.6 Hypokalemia; R11.2 Nausea with vomiting, unspecified; R53.1 Weakness; I25.119 Atherosclerotic heart disease of native coronary artery with unspecified angina pectoris; E78.5 Hyperlipidemia, unspecified; F17.210 Nicotine dependence, cigarettes, uncomplicated
CPT/HCPCS: 70450; 71045; 80053; 80307; 81001; 82803; 83605; 83735; 84484; 85025; 93005; 96361; 96374; 99285; J2405; J7120

== ENCOUNTER 2024-08-01 11:46 | Outpatient (CLI) | payer MEDICARE, MEDICAID, SELFPAY ==
[2024-08-01 18:44] LABS: Basophils # 0.1 K/mm3 (0-0.2); Basophils % 0.8 % (0.1-2.0); Eosinophils # 0.2 K/mm3 (0.0-0.4); Eosinophils % 2.6 % (0.1-12.0); Hematocrit 41.7 % (37.0-47.0); Lymphocytes # 2.6 K/mm3 (0.7-4.5); Lymphocytes % 29.1 % (10-50); Mean Corpuscular HGB Conc 31.3 g/dL (31.8-35.4); Mean Corpuscular Hemoglobin 28.3 pg (27.0-31.2); Mean Corpuscular Volume 90.3 fl (81-99); Mean Platelet Volume 9.8 fl (7.4-10.4); Monocytes # 0.4 K/mm3 (0.1-1.0); Monocytes % 4.8 % (1.7-9.3); Neutrophils # 5.6 K/mm3 (1.8-7.8); Neutrophils % 62.7 % (37.0-80.0); Platelet Count 427 K/mm3 (142-424); Red Blood Count 4.61 M/mm3 (4.20-5.40); Red Cell Distribution Width 16.4 % (11.5-17.5); White Blood Count 8.9 K/mm3 (4.8-10.8)
[2024-08-01 19:34] LABS: Alanine Aminotransferase 18 U/L (12-78); Albumin Level 3.9 g/dl (3.5-5.0); Albumin/Globulin Ratio 1.3 (1.1-1.8); Alkaline Phosphatase 163 U/L (38-126); Aspartate Amino Transferase 24 U/L (14-36); Bilirubin,Total 0.6 mg/dl (0.2-1.3); Blood Urea Nitrogen 14 mg/dl (7-17); Calcium 9.2 mg/dl (8.4-10.2); Carbon Dioxide 32 mmol/L (22.0-30.0); Chloride 104 mmol/L (98-107); Chol/HDL Ratio 4.7 (1-3.5); Cholesterol 142 mg/dl (140-200); Estimated Glomerular Filt Rate 63 ml/min (>60); GFR (African American) 76 ML/MIN (>60); Globulin 2.9 g/dL (1.3-3.2); Glucose 151 mg/dl (74-100); HDL Cholesterol 30 mg/dl (40-60); Sodium 138 mmol/L (136-145); Total Protein,Serum 6.8 g/dl (6.3-8.2); Triglycerides 206 mg/dl (30-150); VLDL Cholesterol 41 mg/dL (0-40)
[2024-08-01 19:44] LABS: Direct LDL Cholesterol 76.57 mg/dL (100-129)
[2024-08-01 20:08] LABS: Anion Gap 6.5 mEq/L (5-15); Potassium 4.5 mmoL/L (3.5-5.1)
== END 2024-08-01 23:59 | disposition home or self-care (01) ==
LOC: LAB.DROPOF 08-02 15:01
PROVIDERS: PCP Family Medicine; Visit Provider Family Medicine
DX: I95.89 Other hypotension (principal); E78.5 Hyperlipidemia, unspecified; I25.10 Atherosclerotic heart disease of native coronary artery without angina pectoris
CPT/HCPCS: 80053; 80061; 84443; 85025

== ENCOUNTER 2024-08-30 09:19 | Outpatient (CLI) | payer MEDICARE, MEDICAID, SELFPAY ==
[2024-08-30 18:11] LABS: Hemoglobin A1C 7.7 % (4.0-6.0)
[2024-08-30 18:29] LABS: Alanine Aminotransferase 19 U/L (12-78); Albumin/Globulin Ratio 1.5 (1.1-1.8); Alkaline Phosphatase 157 U/L (38-126); Anion Gap 12.2 mEq/L (5-15); Aspartate Amino Transferase 23 U/L (14-36); Bilirubin,Total 0.6 mg/dl (0.2-1.3); Blood Urea Nitrogen 11 mg/dl (7-17); Calcium 9.1 mg/dl (8.4-10.2); Carbon Dioxide 27 mmol/L (22.0-30.0); Chloride 105 mmol/L (98-107); Estimated Glomerular Filt Rate 72 ml/min (>60); GFR (African American) 87 ML/MIN (>60); Globulin 2.6 g/dL (1.3-3.2); Glucose 137 mg/dl (74-100); Potassium 4.2 mmoL/L (3.5-5.1); Sodium 140 mmol/L (136-145); Total Protein,Serum 6.6 g/dl (6.3-8.2)
== END 2024-08-30 23:59 | disposition home or self-care (01) ==
LOC: LAB.DROPOF 09-02 09:19
PROVIDERS: PCP Family Medicine; Visit Provider Family Medicine
DX: E11.9 Type 2 diabetes mellitus without complications (principal); Z79.84 Long term (current) use of oral hypoglycemic drugs
CPT/HCPCS: 80053; 83036

== ENCOUNTER 2024-12-31 13:35 | Outpatient (CLI) | payer MEDICARE, MEDICAID, SELFPAY ==
[2024-12-31 13:52] LABS: Basophils # 0.1 K/mm3 (0-0.2); Basophils % 0.6 % (0.1-2.0); Eosinophils # 0.3 K/mm3 (0.0-0.4); Eosinophils % 2.9 % (0.1-12.0); Hematocrit 34.7 % (37.0-47.0); Hemoglobin 11.4 g/dL (12.2-16.2); Lymphocytes % 37.6 % (10-50); Mean Corpuscular HGB Conc 32.9 g/dL (31.8-35.4); Mean Corpuscular Hemoglobin 29.1 pg (27.0-31.2); Mean Corpuscular Volume 88.5 fl (81-99); Mean Platelet Volume 9.4 fl (7.4-10.4); Monocytes # 0.5 K/mm3 (0.1-1.0); Monocytes % 4.6 % (1.7-9.3); Neutrophils # 5.7 K/mm3 (1.8-7.8); Neutrophils % 53.6 % (37.0-80.0); Platelet Count 435 K/mm3 (142-424); Red Blood Count 3.92 M/mm3 (4.20-5.40); Red Cell Distribution Width 14.6 % (11.5-17.5); White Blood Count 10.6 K/mm3 (4.8-10.8)
[2024-12-31 14:18] LABS: Albumin Level 4.4 g/dl (3.5-5.0); Chloride 101 mmol/L (98-107); Potassium 4.3 mmoL/L (3.5-5.1); Sodium 141 mmol/L (136-145)
[2024-12-31 14:19] LABS: Hemoglobin A1C 6.3 % (4.0-6.0)
[2024-12-31 14:21] LABS: Alanine Aminotransferase 19 U/L (12-78); Alkaline Phosphatase 134 U/L (38-126); Anion Gap 13.3 mEq/L (5-15); Aspartate Amino Transferase 22 U/L (14-36); Bilirubin,Direct 0.2 mg/dl (0.0-0.4); Bilirubin,Indirect 0.5 mg/dL (0.0-0.9); Bilirubin,Total 0.7 mg/dl (0.2-1.3); Bilirubin,Unconjugated 0.5 mg/dL (0.0-1.1); Blood Urea Nitrogen 17 mg/dl (7-17); Calcium 9.9 mg/dl (8.4-10.2); Carbon Dioxide 31 mmol/L (22.0-30.0); Cholesterol 124 mg/dl (140-200); Estimated Glomerular Filt Rate 72 ml/min (>60); GFR (African American) 87 ML/MIN (>60); Glucose 124 mg/dl (74-100); Total Protein,Serum 7.2 g/dl (6.3-8.2); Triglycerides 238 mg/dl (30-150); VLDL Cholesterol 48 mg/dL (0-40)
[2024-12-31 14:22] LABS: Chol/HDL Ratio 5.9 (1-3.5); HDL Cholesterol 21 mg/dl (40-60)
[2024-12-31 14:33] LABS: Direct LDL Cholesterol 55.78 mg/dL (100-129)
[2024-12-31 14:39] LABS: Free T4 (Free Thyroxine) 1.18 ng/dl (0.78-2.19)
[2024-12-31 14:55] LABS: Thyroid Stimulating Hormone 2.28 uIU/mL (0.465-4.68)
== END 2024-12-31 23:59 | disposition home or self-care (01) ==
LOC: LAB 13:36
PROVIDERS: PCP Family Medicine; Visit Provider Internal Medicine
DX: I11.9 Hypertensive heart disease without heart failure (principal); I25.10 Atherosclerotic heart disease of native coronary artery without angina pectoris; E87.6 Hypokalemia; E78.2 Mixed hyperlipidemia; E11.9 Type 2 diabetes mellitus without complications; Z79.84 Long term (current) use of oral hypoglycemic drugs
CPT/HCPCS: 36415; 80048; 80061; 80076; 83036; 83735; 84439; 84443; 85025

== ENCOUNTER 2025-06-17 10:22 | Outpatient (CLI) | payer MEDICARE, MEDICAID, SELFPAY ==
--- OUTSIDE RECORDS SUMMARY | 2025-02-08 17:30 | XMS_ITS ---
Author Organization [facility] Address [address] [facility] [address] [place] [address] Care Team Providers Care Support Service Tech Name Role Phone Rubio Diaz Primary Care Provider [phone] Migration, Provider Unavailable Unavailable Allergies Allergen (clinical drug ingredient) Drug/Non Drug Allergy documented on EMR Reaction Allergy Type Onset Date Status amoxicillin Amoxicillin rash Drug Allergy Act henrietta Penicillin rash Drug Allergy Active [facility] Conversion Encounter Medications Medication SIG (Take, [...] Active Encounters Encounter Location Date Provider Diagnosis Located [facility] [place] [address] [facility] [address] [place] [address] 02/08/2025 Provider Migration Diabetic polyneuropathy associated with [...] check* Progress Notes * Yasmine ESPINOZA RahulDOB:1960 (64 yo F)Acc No.[id number]:02/08/2025 Patient: Yasmine SHOOK Provider: Yamil Hernadez :1960 A ge:64 Y S ex:Female Date:02/08/2025 Address:[address] [place] [address] , [facility] [id number] Pcp:Rubio Diaz Subjective: * Chief Complaints: * [...] Electronic signature of Prov ider Migration on 06/17/2025 at 10:31 AM EDT Sign off status: Pending * Provider: Yamil boyce Migration Date: 0 02/08/2025 Generated for Raymond rasheed/Ofelia/Asyaitting on: 0 06/17/2025 10:31 AM EDT
--- OUTSIDE RECORDS SUMMARY | 2025-06-17 10:31 | XMS_ITS | Patient Health Record ---
Author Organization [facility] Address [address] [facility] [address] [place] [address] Care Team Providers Care Freight Breaker Name Role Phone Rubio Diaz Primary Care Provider Migration, Provider Unavailable Unavailable Allergies Allergen (clinical drug ingredient) Drug/Non Drug Allergy documented on EMR Reaction Allergy Type Onset Date Status amoxicillin Amoxicillin rash Drug Allergy Act henrietta Penicillin rash Drug Allergy Active Medications Medication SIG (Take, Route, Frequency, Duration) Notes Start Date End Date Status D 1999 IU 2000 INTL UNITS DIRECTED ORALLY ONCE A DAY; Duration: 30 DAY(S) *Please review for potential replacement for e-prescription and drug interaction check* 06/12/2020 Active Gabapentin 600 MG 1 tab(s) orally 3 times a day; Duration: 30 day(s) 07/22/2019 Active Atorvastatin Calcium 10 MG 1 tab(s) orally once a day Active B-12 2500 MCG 1 tab(s) sublingually once a day; Duration: 30 day(s) 06/12/2020 Active Amitriptyline HCl 50 MG 1 tab(s) orally once a day (at bedtime) Active Bisoprolol Fumarate 5 MG 1 tab(s) orally once a day at bedtime; Duration: 30 days Active Aspirin 81 MG 1 tab(s) orally once a day; Duration: 30 day(s) Active PROAIR HFA 90 MCG/INH 2 PUFF(S) INHALED EVERY 6 HOURS PRN *Please review for potential replacement for e-prescription and drug interaction check* Active DULoxetine HCl 60 MG 1 cap(s) orally once a day; Duration: 90 days Active Cefdinir 300 MG 1 cap(s) orally every 12 hours; Duration: 7 day(s) 07/14/2020 Active ROBITUSSIN COUGH + CHEST CONGESTION DM 20 MG-200 MG/20 ML 10 ML ORALLY EVERY 4 HOURS PRN; Duration: 5 DAYS *Please review for potential replacement for e-prescription and drug interaction check* 07/21/2020 Active Azithromycin 250 MG 2 tablets on the first day, then 1 tablet daily for 4 days orally once a day; Duration: 5 days 07/27/2020 Active Klor-Con M10 10 MEQ 1 tab(s) orally once daily Active clonazePAM 0.5 MG 1 tab(s) orally twice daily; Duration: 30 days Active DULoxetine HCl 30 MG 1 cap(s) orally once a day; Duration: 90 days 06/08/2020 Active Omeprazole 20 MG 1 cap(s) orally once a day; Duration: 30 day(s) 04/27/2020 Active Furosemide 20 MG 1 tab(s) orally once a day; Duration: 30 day(s) 02/10/2020 Active metFORMIN HCl 1000 MG 1 tab(s) orally once a day Active TEST STRIPS AND LANCETS NA FOR DIABETIC TESTING NA ONCE DAILY; Duration: 30 DAYS diagnosis: E11.9 *Please review for potential replacement for e-prescription and drug interaction check* 01/07/2020 Active Celecoxib 200 MG 1 cap(s) orally 2 times a day Active Flonase Allergy Relief 50 MCG/ACT 2 spray(s) intranasally once a day Active Immunizations Vaccine Route Administration Date Status Comme nts Influenza (Fluzone)--Medicare only IM Intramuscular 09/23/2011 Administered Influenza (Fluzone)--Medicare only IM Intramuscular 08/07/2012 Administered Influenza (Fluzone)--Medicare only IM Intramuscular 08/20/2018 Administered FLUZONE 6MO - OLDER IM Intramuscular 07/22/2019 Administer ed FLUZONE 6MO - OLDER IM Intramuscular 07/01/2020 Administer ed Social History Tobacco Use: Social History Observation Description Date Details (start date - stop date) Current Smoker NA - NA Smoking: Question Answer Notes Are you a: current smoker How often do you smoke cigarettes? every day How many cigarettes a day do you smoke? 5 or les s Problems Problem Type SNOMED Code ICD Code Onset Dates Problem Status W/U Status Risk Notes Problem Generalized anxiety disorder (56239492) Generalized anxiety disorder (F41.1) Active confirmed Problem Primary insomnia (8681741) Primary insomnia (F51.01) Active confirmed Problem Chronic pain syndrome (819631504) Chronic pain syndrome (G89.4) Active confirmed Problem Mixed anxiety and depressive disorder (905632540) Depression with anxiety (F41.8) Active confirmed Problem Type II diabetes mellitus without complication (490549493) Diabetes mellitus type 2, noninsulin dependent (E11.9) Active confirmed Problem Acute exacerbation of chronic obstructive airways disease (085874634) COPD exacerbation (J44.1) Active confirmed Problem Chronic obstructive pulmonary disease (93831525) 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) Active confirmed Problem Dizziness (779930582) Dizziness (R42) Active confirmed Problem Primary osteoarthritis (352024697) Primary osteoarthritis involving multiple joints (M15.0) Active confirmed Problem Polyneuropathy due to type 2 diabetes mellitus (535259212) Diabetic polyneuropathy associated with type 2 diabetes mellitus (E11.42) Active confirmed Problem Chronic insomnia (458111156) Chronic insomnia (F51.04) Active confirmed Problem Ataxia (20446449) Ataxia (R27.0) Active confirm ed Problem Neuropathy due to type 2 diabetes mellitus (233586022361744) Type 2 diabetes, controlled, with neuropathy (E11.40) Active confirmed Problem Tobacco use (783271908) Tobacco use disorder (F17.200) Active confirmed Problem Essential hypertension (98855195) Hypertension, unspecified type (I10) Active confirmed Encounters Encounter Location Date Provider Diagnosis [facility] [place] [address] [facility] [address] [place] [address] 02/08/2025 Provider Migration Diabetic polyneuropathy associated with type 2 diabetes mellitus E11.42 and Generalized anxiety disorder F41.1 Assessments Encounter Date Diagnosis (ICD Code) Assessment Notes Treatment Notes Treatment Clinical Notes Section Notes 02/08/2025 Diabetic polyneuropathy associated with type 2 diabetes mellitus (ICD-10 - E11.42) 02/08/2025 Generalized anxiety disorder (ICD-10 - F41.1) Plan Of Treatment Pending Test Test Name Order Date Mammogram : Diagnostic 04/30/2012 H-CBC with AUTO DIFF 02/27/2012 H-CBC with AUTO DIFF 03/07/2018 H-CBC with AUTO DIFF 05/22/2013 H-VITAMIN B12 09/18/2017 H-PT/INR 02/27/2012 H-CMP 05/22/2013 H-LIPID PANEL 05/22/2013 H-HGBA1C 03/07/2018 H-TSH 05/22/2013 M-Vitamin D 25 Hydroxy 06/08/2020 Insurance Providers Payer Name Payer Address Payer Phone Subscriber Number Group Number Insured Name Patient Relationship to Insured Coverage Start Date Coverage End Date [place] [address] [place] [place] [address] [id number] Yasmine Sagastume Self - patient is the insured MEDICAID EDS [address] [place] [address] [id number] Yasmine Sagastume Self - patient is the insured 8 Medications Administered Medication Instructions Date of Administration Dosage Notes Ceftriaxone 500 11/26/2013 500 mg Cyanocobalamin/B-12 Pt's Own Medication 09/21/2017 1 mL Cyanocobalamin/B-12 Pt's Own Medication 10/04/2017 1 mL Cyanocobalamin/B-12 Pt's Own Medication 10/11/2017 1 mL Cyanocobalamin/B-12 Pt's Own Medication 10/18/2017 1 mL Cyanocobalamin/B-12 Pt's Own Medication 10/26/2017 1 mL Cyanocobalamin/B-12 Pt's Own Medication 11/02/2017 1 mL Cyanocobalamin/B-12 Pt's Own Medication 11/16/2017 1 mL Triamcinolone Acetonide 40mg Injection 04/17/2018 1 mL Triamcinolone Acetonide 40mg Injection 07/31/2018 1 mL Triamcinolone Acetonide 40mg Injection 11/21/2019 1 mL Kenalog 11/26/2013 1 Medical (General) History Medical History History ICD Code 2 Ectopic pregs. C4-C7 nerve damage Fractured veretebraes Esophageal reflux depression Neuropathy - normal colonoscopy 2013 type 2 diabetes, A1c 6.4% in March 2018 osteopenia on DEXA scan April 2018. Needs repeat 2019 COPD normal mammograms, most recent in Novemb er 2017 and again in 07/26 Surgical History Surgery Date(Month/Year) Hysterectomy 2004 Surgery on urethra Hospitalization History Reason Date(Month/Year) Hysterectomy 2004
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
--- OUTSIDE RECORDS SUMMARY | 2025-06-17 10:31 | XMS_ITS | Clinical Summary ---
Author Organization [facility] Address [address] [place] [address] Care Team Providers Care Occupational Health And Safety Officer Name Role Phone Rubio Mcdonnell MD Primary Care Provider + Allergies Active Allergy Reactions Criticality Noted Date Comments Amoxicillin Swelling Medium 02/11/2021 Swelling and Welps Penicillins Swelling Medium 02/11/2021 Swelling & Welps Medications clonazePAM (KlonoPIN) 0.5 MG tablet 01/20/2021 Active bisoprolol (ZEBeta) 5 MG tablet 02/04/2021 Active DULoxetine (CYMBALTA) 30 MG capsule 12/04/2020 Active DULoxetine (CYMBALTA) 60 MG capsule 02/05/2021 Active celecoxib (CeleBREX) 200 MG capsule 02/04/2021 Active metFORMIN (GLUCOPHAGE) 1000 MG tablet 02/05/2021 Acti ve amitriptyline (ELAVIL) 50 MG tablet 01/01/2021 Active gabapentin (NEURONTIN) 800 MG tablet Take 800 mg by mouth 3 (Three) Times a Day. 01/13/2021 Active omeprazole (priLOSEC) 20 MG capsule 02/05/2021 Active Magnesium 250 MG tablet Take 250 mg by mouth Daily. Active furosemide (LASIX) 20 MG tablet Take 20 mg by mouth Daily. Active potassium chloride (K-DUR,KLOR-CON) 10 MEQ CR tablet TAKE ONE TABLET BY MOUTH EVERY DAY WITH FOOD 30 tablet 03/07/2022 Active Active Problems No known active problems Family History Medical History Relation Name Comments Cancer Father Cancer Mother Cancer Sister Relation Name Status Comments Father Mother Sister Social History Tobacco Use Types Packs/Day Years Used Date Smoking Tobacco: Every Day Cigarettes Smokeless Tobacco: Never Alcohol Use Standard Drinks/Week Comments Never 0 (1 standard drink = 0.6 oz pur e alcohol) AUDIT-C Answer Date Recorded Q1: How often do you have a drink containing alc ohol? Never 02/11/2021 Average Number of Drinks Not on file 021 Frequency of Binge Drinking Not on file 06/2021 Abuse Screen Answer Date Recorded Unsafe at Home or Work/School Not on file Feels Threatened by Someone? Not on file 07/2023 Does Anyone Keep You from Co ntacting Others or Doint Things Outside the Home? Not on file 08/14/2023 Physical Sign of Abuse Present Not on file 1 Housing Stability Answer Date Recorded Current Living Arrangements Not on file 07/2023 Potentially Unsafe Housing Conditions Not on linda e 08/14/2023 Family and Community Support Answer Jose Elias e Recorded Help with Day-to-Day Activities Not on file 08/14/2023 Lonely or Isolated Not on file 08/14/2023 Employment Answer Date Recorded Do you want help finding or keeping work or a rose b? Not on file 08/14/2023 Disabilities Answer Date Recorded Concentrating, Remembering, or Making Decisions Difficulty Not on file 08/14/2023 Doing Errands Independently Difficulty Not on fi le 08/14/2023 Education Answer Date Recorded Help with school or training? Not on file Preferred Language Not on file 08/14/2023 Comments Unknown Sex and Gender Information Value Date Recorded Sex Assigned at Not on file Legal Sex Female 1:05 PM EDT Gender Identity Not on file Sexual Orientation Not on file Last Filed Vital Signs Vital Sign Reading Time Taken Comments Blood Pressure - - Pulse - - Temperature 36.4 C (97.5 F) 02/11/2021 1:03 PM EDT Respiratory Rate - - Oxygen Saturation - - Inhaled Oxygen Concentration - - Weight 90.7 kg (200 lb) 02/11/2021 1:03 PM EDT Height 165.1 cm (5' 5 ) 02/11/2021 1:03 PM EDT Body Mass Index 33.28 02/11/2021 1:03 PM EDT Plan of Treatment Health Maintenance Due Date Last Done Comments DXA SCAN 1960 TDAP/TD VACCINES (1 - Tdap) 1977 MAMMOGRAM 1998 COLOGUARD 2003 COLON CANCER SCREENING 5 YEAR SIGMOIDOSCOPY 2003 COLONOSCOPY [address] CANCER SCREENING 2003 CT COLONOGRAPHY 2003 FECAL OCCULT BLOOD TEST 2003 FIT Testing (1 year) 2003 ZOSTER VACCINE (1 of 2) 2008 Pneumococcal Vaccine 50+ (2 of 2 - PCV) 12/05/2017 0 12/05/2016 ANNUAL PHYSICAL 02/11/2021 COVID-19 Vaccine (2023- season) 2024 INFLUENZA VACCINE 08/06/2025 HEPATITIS C SCREENING Completed 05/20/[address] [place] [address] MEDICAID [place] MEDICARE A & B Care Teams Occupational Health And Safety Officer Relationship Specialty Start Date End Date Rubio Mcdonnell MD PCP - General Family Medicine 02/04/21
--- OUTSIDE RECORDS SUMMARY | 2025-06-17 10:31 | XMS_ITS | Referral Summary ---
Author Organization [employer] ([place], [place], [place], [place]) Address [address] [place] [address] Care Team Providers Care Porcelain Technician Name Role Phone Sj, Provider Not In The System MD Primary Care Provider Unavailable Sj, Provider Not In The System MD Unavailable Unavailable Sj, Provider Not In The System MD Unavailable Unavailable Sj, Provider Not In The System MD Unavailable Unavailable Social History Tobacco Use Types Packs/Day Years Used Date Smoking Tobacco: Never Assessed Comments Unknown Sex and Gender Information Value Date Recorded Sex Assigned at Not on file Legal Sex Female 3:08 PM CDT Gender Identity Not on file Sexual Orientation Not on file Plan of Treatment Not on file Insurance [place]ICAID OF [place] [facility] Care Teams Porcelain Technician Relationship Specialty Start Date End Date [facility], Provider Not In The System, [place] [address] PCP - General 04/18/23 [facility], Provider Not In The System, [place] [address] 04/18/23 [facility], Provider Not In The System, [place] [address] Referring Physician 04/18/23 [facility], Provider Not In The System, [place] [address] Referring Physician 04/18/23
--- OUTSIDE RECORDS SUMMARY | 2025-06-17 10:31 | XMS_ITS | Clinical Summary ---
Author Organization [email or web address] ([place], [place], [place], [place]) Address [address] [place] [address] Care Team Providers Care Core Man Name Role Phone Sj, Provider Not In [...] Not on file Insurance MEDICAID OF [place] Care Teams Core Man Relationship Specialty Start Date End Date [facility], Provider Not In The System, [place] [address] PCP - General 04/18/23 [facility], Provider Not In The System, [place] [address] 04/18/23 [facility], Provider Not In The System, [place] [address] Referring Physician 04/18/23 [facility], Provider Not In The System, [place] [address] Referring Physician 04/18/23
--- NOTE | 2025-06-17 13:00 | CT_ITS ---
FINAL REPORT CLINICAL HISTORY: lung cancer screening current smoker 3ppd x54 years COMPARISON: LDCT, 06/14/2022, CTA of the chest, 12/07/2023 FINDINGS: CT CHEST LOW DOSE SCREENING HISTORY: Screening exam for lung cancer. 64-year-old female, current smoker, [id number] history of smoking. DOSE: CTDI vol: 2.90 mGy, DLP: 98.21 mGy*cm TECHNIQUE: Axial CT without IV contrast administration using low dose protocol. This study was performed with techniques to keep radiation doses as low as reasonably achievable, (ALARA). Individualized dose reduction techniques using automated exposure control or adjustment of mA and/or kV according to the patient's size were employed. No acute lung disease is present. There is a 3 mm nodule in the posterior right upper lobe, best seen on image #34 of series 3, stable. The 3 mm nodule in the lateral right upper lobe seen on the prior exam is no longer visualized. No new masses or nodules are identified. There is evidence of prior granulomatous disease. Mild lingular scar is present. No pleural or pericardial effusion is seen. No adenopathy or mass lesion is present. IMPRESSION: No evidence of lung cancer LUNG RADS CATEGORY 2 RECOMMENDATION: 12 month LDCT follow up Reviewed, Interpreted and Dictated by Ervin Hough MD Transcribed by Elise Arthur Authenticated and [facility]
== END 2025-06-17 23:59 | disposition home or self-care (01) ==
LOC: RAD 10:23
PROVIDERS: PCP Family Medicine; Visit Provider Family Medicine
DX: Z12.2 Encounter for screening for malignant neoplasm of respiratory organs (principal); F17.210 Nicotine dependence, cigarettes, uncomplicated; R91.1 Solitary pulmonary nodule; J98.4 Other disorders of lung
CPT/HCPCS: 71271

== ENCOUNTER 2025-06-27 14:47 | Emergency (ER) | payer MEDICARE, MEDICAID, SELFPAY ==
--- OUTSIDE RECORDS SUMMARY | 2025-02-08 17:30 | XMS_ITS ---
Author Organization [facility] Address [address] [facility] [address] [place] [address] Care Team Providers Care Riprap Placing Supervisor Name Role Phone Rubio Diaz Primary Care Provider Migration, Provider Unavailable Unavailable Allergies Allergen (clinical drug ingredient) Drug/Non Drug Allergy documented on EMR Reaction Allergy Type Onset Date Status amoxicillin Amoxicillin rash Drug Allergy Act henrietta Penicillin rash Drug Allergy Active [facility] Conversion Encounter Medications [...] Active Encounters Encounter Location Date Provider Diagnosis [facility] [place] [address] [facility] [address] [place] [address] 02/08/2025 Provider Migration Diabetic polyneuropathy associated with [...] drug interaction check* Progress Notes * Yasmine ESPINOAZ RahulDOB:1960 (64 yo F)Acc No.[id number]:02/08/2025 Patient: Yasmine SHOOK Provider: Yamil Hernadez :1960 A ge:64 Y S ex:Female Date:02/08/2025 Address:[address] [place] [address] , [facility] [id number] Pcp:Rubio Diaz Subjective: * Chief Complaints: * [...] Electronic signature of Prov ider Migration on 06/27/2025 at 03:07 PM EDT Sign off status: Pending * Provider: Yamil boyce Migration Date: 0 02/08/2025 Generated for Raymond rasheed/Ofelia/Christelle on: 0 06/27/2025 03:07 PM EDT
[2025-06-27] VITALS (9 sets, daily range): BP systolic 133–170; BP diastolic 63–91; PULSE 85–110; RESP 18–20; TEMP 36.7–37.3; O2SAT 94–98; BMI 29.2
--- NOTE | 2025-06-27 14:53 | PC.NURSE ---
verbal order received from Deborah ELLISON to give patient 4mg zofran ODT
--- NOTE | 2025-06-27 15:01 | ECG_ITS ---
APPROVED REPORT Exam: Resting ECG HR:104 bpm ECG Measurements Heart Rate 104 AXES OR 150 P 72 QRSd 86 QRS 87 QT 370 T 53 QTc 431 Conclusion Sinus tach Normal intervals NO STEMI Electronically signed by : Braeden Morgan, 06/28/2025 01:37:32
[2025-06-27] MEDS: ONDANSETRON 4MG ODT 4 MG SL (15:03)
--- OUTSIDE RECORDS SUMMARY | 2025-06-27 15:07 | XMS_ITS | Clinical Summary ---
Author Organization [facility] Address [address] [id number] Care Team Providers Care Glass Melt Operator Name Role Phone Santana Pang MD Primary Care Provider + [phone] Allergies No known active allergies Medications fluticasone [...] Wellness (AWV) 1960 [facility]-/Child/Adol SDOH Screenings 1958 [id number] Vaccine (#1) 1963 UKY- SDOH Screenings 1976 [...] Antibody Negative Negative 05/20/2024 9:10 PM EDT [facility] Blood Venous blood specimen / Unknown Venipuncture / Unknown 05/20/2024 8:09 PM EDT 05/20/2024 8:29 PM EDT us Grayson Sagastume MD LAB BLOOD ORDERABLES Final Resul t [facility] [address] [place] [address] from Last 3 Months or Most Recently Relevant to Health Maintenance Insurance [facility] [place] [address] [place] [facility] AUTO Member Subscriber Plan / Payer (Ef fective 2024-Present) Name:Tanika Yasmine Jessica Member ID:[id number] Relation to Subscriber:Self Name:Yasmine Sagastume Subscriber ID:[id number] Payer ID:Not on file Group ID:Not on file Type:Not on file Address: [address] [place] [phone] Advance Directives * Full Code (Latest Code Status on File) Date Activated Date Inactivated Comments 05/21/2024 1:25 AM 05/22/2024 7:28 PM Question Answer Comments Patient has decision-making capacity? Yes Care Teams Glass Melt Operator Relationship Specialty Start Date End Date Santana Pang MD [address] [place] [address] PCP - General 03/19/21
--- OUTSIDE RECORDS SUMMARY | 2025-06-27 15:07 | XMS_ITS | Referral Summary ---
Author Organization [employer] ([place], [place], [place], [place]) Address [address] [place] [address] Care Team Providers Care Private Branch Exchange Service Adviser Name Role Phone Sj, Provider Not In [...] on file Insurance [place]ID OF [place] [facility] Care Teams Private Branch Exchange Service Adviser Relationship Specialty Start Date End Date [facility], Provider Not In The System, [place] [address] PCP - General 04/18/23 [facility], Provider Not In The System, [place] [address] 04/18/23 [facility], Provider Not In The System, [place] [address] Referring Physician 04/18/23 [facility], Provider Not In The System, [place] [address] Referring Physician 04/18/23
--- OUTSIDE RECORDS SUMMARY | 2025-06-27 15:07 | XMS_ITS | Clinical Summary ---
Author Organization [facility] Address [address] [place] [address] Care Team Providers Care Vest Presser Name Role Phone Rubio Mcdonnell MD Primary [...] 2 - PCV) 12/05/2017 0 12/05/2016 ANNUAL WELLNESS VISIT 02/11/2021 COVID-19 Vaccine (2023- season) 2024 INFLUENZA VACCINE 08/06/2025 HEPATITIS C SCREENING Completed 05/20/[address] [place] [address] MEDICAID [place] MEDICARE A & B Care Teams Vest Presser Relationship Specialty Start Date End Date Rubio Mcdonnell MD PCP - General Family Medicine 02/04/21
--- OUTSIDE RECORDS SUMMARY | 2025-06-27 15:07 | XMS_ITS | Clinical Summary ---
Author Organization [address] ([place], [place], [place], [place]) Address [address] [place] [address] Care Team Providers Care Dehydration Unit Operator Name Role Phone Sj, Provider Not In [...] file Insurance [place] Care Teams Dehydration Unit Operator Relationship Specialty Start Date End Date [facility], Provider Not In The System, [place] [address] PCP - General 04/18/23 [facility], Provider Not In The System, [place] [address] 04/18/23 [facility], Provider Not In The System, [place] [address] Referring Physician 04/18/23 [facility], Provider Not In The System, [place] [address] Referring Physician 04/18/23
--- OUTSIDE RECORDS SUMMARY | 2025-06-27 15:07 | XMS_ITS | Patient Health Record ---
Author Organization [facility] Address [address] [facility] [address] [place] [address] Care Team Providers Care District Manager In Training Name Role Phone Rubio Diaz Primary Care Provider [phone] Migration, Provider Unavailable Unavailable Allergies Allergen (clinical [...] Status Risk Notes Problem Generalized anxiety disorder (75740420) Generalized anxiety disorder (F41.1) Active confirmed Problem Primary insomnia (8628551) Primary insomnia (F51.01) Active confirmed Problem Chronic pain syndrome (965845458) Chronic pain syndrome (G89.4) Active confirmed Problem Mixed anxiety and depressive disorder (356772575) Depression with anxiety (F41.8) Active confirmed Problem Type II diabetes mellitus without complication (452566297) Diabetes mellitus type 2, noninsulin dependent (E11.9) Active confirmed Problem Acute exacerbation of chronic obstructive airways disease (689634297) COPD exacerbation (J44.1) Active confirmed Problem Chronic obstructive pulmonary disease (41750718) 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) Active confirmed Problem Dizziness (233921869) Dizziness (R42) Active confirmed Problem Primary osteoarthritis (803512969) Primary osteoarthritis involving multiple joints (M15.0) Active confirmed Problem Polyneuropathy due to type 2 diabetes mellitus (039464170) Diabetic polyneuropathy associated with type 2 diabetes mellitus (E11.42) Active confirmed Problem Chronic insomnia (144526440) Chronic insomnia (F51.04) Active confirmed Problem Ataxia (25927909) Ataxia (R27.0) Active confirm ed Problem Neuropathy due to type 2 diabetes mellitus (623264773316482) Type 2 diabetes, controlled, with neuropathy (E11.40) Active confirmed Problem Tobacco use (880345470) Tobacco use disorder (F17.200) Active confirmed Problem Essential hypertension (63927805) Hypertension, unspecified type (I10) Active confirmed Encounters Encounter Location Date Provider Diagnosis [facility] [address] [facility] [address] [place] [address] 02/08/2025 Provider Migration Diabetic polyneuropathy associated with [...] : Diagnostic 04/30/2012 H-CBC with AUTO DIFF 03/07/2018 H-CBC with AUTO DIFF 05/22/2013 H-CBC with AUTO DIFF 02/27/2012 H-VITAMIN B12 09/18/2017 H-PT/INR 02/27/2012 H-CMP 05/22/2013 H-LIPID PANEL 05/22/2013 H-HGBA1C 03/07/2018 H-TSH 05/22/2013 M-Vitamin D 25 Hydroxy 06/08/2020 Insurance Providers Payer Name Payer Address Payer Phone Subscriber Number Group Number Insured Name Patient Relationship to Insured Coverage Start Date Coverage End Date [place] [address] [place] [address] [id number] Yasmine Sagastume Self - patient is the insured MEDICAID [place] [address] [place] [id number] Yasmine Sagastume Self - patient is the [...]
[2025-06-27 15:15] LABS: Coronavirus 19, PCR Not Detected (NotDetected); Influenza A, PCR Not Detected (NotDetected); Influenza B, PCR Not Detected (NotDetected)
[2025-06-27 15:23] LABS: Hematocrit 37.4 % (37.0-47.0); Hemoglobin 13.0 g/dL (12.2-16.2); Immature Granulocytes % 0.6 %; Mean Corpuscular HGB Conc 34.8 g/dL (31.8-35.4); Mean Corpuscular Hemoglobin 28.1 pg (27.0-31.2); Mean Corpuscular Volume 81.0 fl (81-99); Nucleated Red Blood Cells % 0 %; Platelet Count 292 K/mm3 (142-424); Red Blood Count 4.62 M/mm3 (4.20-5.40); Red Cell Distribution Width-SD 40.9 fL; White Blood Count 8.6 K/mm3 (4.8-10.8)
--- NOTE | 2025-06-27 15:39 | CT_ITS ---
FINAL REPORT TECHNIQUE: After the administration of intravenous contrast, axial images were obtained through the abdomen and pelvis by computed tomography. This study was performed with technique to keep radiation doses as low as reasonably achievable, (ALARA). Individualized dose reduction techniques using automated exposure control or adjustment of the MA and/or KV according to the patient's size were employed. CLINICAL HISTORY: RUQ and epigastric pain, NVD FINDINGS: Abdomen: There is scarring of the lung bases. The liver is mildly fatty infiltrated. The gallbladder is present. There are calcified granulomas in the spleen. The adrenals are normal. The pancreas is unremarkable. The kidneys enhance appropriately. The aorta is normal in caliber. There is no free fluid or adenopathy. Moderate vascular calcifications are seen in the abdominal aorta and iliac vessels Pelvis: The appendix is not identified. The urinary bladder is incompletely distended. There is no free fluid or adenopathy. IMPRESSION: Mild fatty infiltration of the liver. Reviewed, Interpreted and Dictated by Meir Ghosh MD Transcribed by Alecia Sanchez Authenticated and [facility]
--- NOTE | 2025-06-27 15:40 | HMH.EDGENADL ---
Discharge Plan Disposition Patient Disposition: Home, Self-Care Condition: Good Prescriptions Prescriptions: New ondansetron 4 mg tablet,disintegrating 4 mg PO Q6H PRN (Reason: nausea and vomiting) Qty: 20 0RF No Action losartan 50 mg tablet 50 mg PO DAILY Qty: 90 3RF ferrous sulfate [FeroSul] 325 mg (65 mg iron) tablet PO clonazepam 0.5 mg tablet 0.5 mg PO DAILY Qty: 30 5RF levocetirizine [Xyzal] 5 mg tablet 5 mg PO DAILY Qty: 90 3RF prasugrel HCl 10 mg tablet See Rx Instructions .ROUTE .COMPLEX Qty: 30 5RF Dose Instruction: TAKE 1 TABLET BY MOUTH ONCE DAILY Rx Instructions: TAKE 1 TABLET BY MOUTH ONCE DAILY meloxicam 15 mg tablet 15 mg PO DAILY Qty: 90 3RF potassium chloride 10 mEq tablet extended release 20 meq PO DAILY Qty: 90 3RF fluticasone propionate 50 mcg/actuation spray,suspension 2 spray intranasal DAILY PRN (Reason: ALLERGIES) Qty: 16 0RF aspirin 81 mg tablet,delayed release (DR/EC) 81 mg PO DAILY Qty: 30 2RF atorvastatin 40 mg tablet 40 mg PO DAILY Qty: 90 1RF bisoprolol fumarate 5 mg tablet 5 mg PO DAILY Qty: 90 0RF pantoprazole 40 mg tablet,delayed release (DR/EC) 40 mg PO DAILY Qty: 90 0RF amitriptyline 75 mg tablet 75 mg PO DAILY Qty: 90 1RF gabapentin 800 mg tablet 800 mg PO TID Qty: 90 3RF albuterol sulfate 90 mcg/actuation HFA aerosol inhaler 2 inh INHALATION Q6H PRN (Reason: shortness of breath or wheezing) Qty: 8.5 2RF torsemide 20 mg tablet 20 mg PO BID Qty: 60 2RF Rx Instructions: bid until seen back in the doctor's office be sure to take potassium daily duloxetine 60 mg capsule,delayed release(DR/EC) 60 mg PO DAILY Qty: 90 1RF Patient Comments: TAKE 1 CAPSULE BY MOUTH DAILY FOR MOOD cyclobenzaprine 10 mg tablet 10 mg PO TID Qty: 90 0RF Referrals Follow up/Referrals: Malachi Byrd MD [Primary Care Provider, Family Practice] - See instructions Activity Restrictions/Add. Instructions Additional Instructions/Restrictions: You have gastroenteritis. Please take Zofran every 6 hours as needed for nausea at home. If you become unable to tolerate oral intake please return. I want you to drink lots of fluids at home. Clinical Impressions Clinical Impression: Acute gastroenteritis Print Language Print Language: Tanzanian Discharge ED Provider: Braeden Morgan General Adult HPI General Chief complaint: Nausea/Vomiting/Diarrhea Stated complaint: vomiting, weakness, cant keep anything down Time Seen by Provider: 06/27/25 15:13 Mode of Arrival: Ambulatory Source of Information: Patient Description of Symptoms (Recalled from ER Triage Doc. by RN): patient presents to the ER for ongoing N/V/D. Patient actively vomiting, not able to keep anything down. PAtient has been around a friend great granddaughter that has been sick. History of Present Illness HPI narrative: This is a 64-year-old female patient, with past medical history of hypertension, coronary artery disease, type 2 diabetes, tobacco abuse, who is presented to the emergency department today for evaluation of nausea, vomiting, and diarrhea for the last 3 days. She states that she has been unable to hold down any food at home including her medications. She describes her diarrhea as liquid only with no formed stool components. She is not experiencing any hematochezia, melena, or hematemesis. She is having no chest pain or shortness of breath. She denies sick contacts. Related Data Home Medications ?Medication ?Instructions ?Recorded ?Confirmed ferrous sulfate 325 mg (65 mg mg PO 10/11/24 06/04/25 iron) tablet (FeroSul) Previous Rx's ?Medication ?Instructions ?Recorded levocetirizine 5 mg tablet (Xyzal) 5 mg PO DAILY #90 tabs 06/25/24 prasugrel HCl 10 mg tablet See Rx Instructions .Route 06/25/24 .COMPLEX #30 tabs losartan 50 mg tablet 50 mg PO DAILY #90 tabs 08/01/24 meloxicam 15 mg tablet 15 mg PO DAILY #90 tabs 09/06/24 potassium chloride 10 mEq 20 meq (2 x 10 mEq) PO DAILY #90 12/26/24 tablet,extended release tabs fluticasone propionate 50 2 spray intranasal DAILY PRN 01/01/25 mcg/actuation nasal ALLERGIES #16 grams spray,suspension aspirin 81 mg tablet,delayed 81 mg PO DAILY #30 tabs 01/20/25 release clonazepam 0.5 mg tablet 0.5 mg PO DAILY #30 tabs 02/03/25 atorvastatin 40 mg tablet 40 mg PO DAILY #90 tabs 02/05/25 bisoprolol fumarate 5 mg tablet 5 mg PO DAILY #90 tabs 03/07/25 amitriptyline 75 mg tablet 75 mg PO DAILY #90 tabs 04/02/25 pantoprazole 40 mg tablet,delayed 40 mg PO DAILY #90 tabs 04/02/25 release albuterol sulfate 90 mcg/actuation 2 inh inhalation Q6H PRN shortness 04/04/25 aerosol inhaler of breath or wheezing #8.5 grams gabapentin 800 mg tablet 800 mg PO TID #90 tabs 04/04/25 torsemide 20 mg tablet 20 mg PO BID #60 tabs 05/01/25 duloxetine 60 mg capsule,delayed 60 mg PO DAILY #90 caps 06/05/25 release cyclobenzaprine 10 mg tablet 10 mg PO TID #90 tabs 06/20/25 ondansetron 4 mg disintegrating 4 mg PO Q6H PRN nausea and 06/27/25 tablet vomiting #20 tabs Allergies Allergy/AdvReac Type Severity Reaction Status Date / Time amoxicillin Allergy Intermediate I-RASH Verified 06/04/25 15:18 Penicillins (PENICILLINS) Allergy Unknown Unknown Verified 06/23/25 09:53 allergy reaction Corticosteroids AdvReac Unknown Verified 06/23/25 09:53 (Glucocorticoids) allergy reaction PFS PFS Disclaimer: The information contained in this section may have been updated after the patient was seen, as this information can be updated by other users. Medical History Diabetes mellitus CAD (coronary artery disease) Hypotension Sinus tachycardia Abnormal cardiovascular stress test Angina pectoris Dyspnea Chest pain Neuropathic pain Sore throat Cervical spine fracture Left upper extremity numbness Bronchitis Abnormal PFT Tobacco abuse counseling Restrictive lung disease Smoking greater than 30 pack years Dyspnea on exertion COVID-19 virus test result unknown Encounter for laboratory testing for COVID-19 virus Strep throat HLD (hyperlipidemia) Tobacco abuse Surgical History History of total hysterectomy History of colonoscopy History of cardiac cath History of breast biopsy Family History Other Coronary artery disease Heart attack Social History Smoking Status: Never smoker alcohol intake: never substance use type: denies use current occupational status: disabled Travel in the last 8 weeks?: None household members: none housing: apartment Have you lived/traveled outside US in past 30 days?: No Contact w/someone who lives/traveled outside US past 30 days?: No Exposure to someone with infectious disease in past 14 days?: No Do you have a fever (greater than 100.4 F or 38 C)?: No Have you tested positive for COVID-19?: No Exposed to someone with COVID-19 in past 14 days?: No Do you have a sore throat?: No Do you have a cough?: No Do you have any weakness?: No Do you have any diarrhea?: No Are you experiencing any unusual bleeding?: No Do you have any muscle aches/pain?: No Do you have any abdominal pain?: No Are you experiencing loss of taste or smell?: No Other Medical History Have you received the Flu Vaccine for this season: No Have you received the Pneumonia Vaccine: Yes ROS Obtained: Yes Systems reviewed as appropriate & no additional complaints except as documented Physical Exam General General appearance: other (See MDM) Respiratory Respiratory exam: Present other (See MDM) Cardiovascular Cardiovascular exam: Present other (See MDM) Neurological Exam Neurological exam: Present other (See MDM) Medical Decision Making Medical Records Medical records reviewed: Yes I reviewed the patient's medical records. Screening: Per USPSTF and CDC recommendations, given the prevalence of disease in our region, it is our hospital?s policy to screen for HIV and viral Hepatitis for all patients aged 18 and over and those with ongoing risk factors. Nader Inquiry Pt receiving controlled substance: No Nader was queried for this patient: No Vital Signs: 06/27/25 14:50 06/27/25 15:15 06/27/25 15:30 Temperature 99.1 F Temperature Source Temporal Artery Scan Pulse Rate 96 H 90 Pulse Rate [Right Radial] 110 H Respiratory Rate 18 19 Blood Pressure 156/78 H 147/80 H Blood Pressure [Left Arm] 170/91 H Blood Pressure Mean 104 Blood Pressure Mean [Left Arm] 117 Blood Pressure Source [Left Arm] Automatic Cuff Blood Pressure Position [Left Arm] Sitting 02 Sat by Pulse Oximetry 94 L 97 96 Oxygen Delivery Method Room Air Room Air 06/27/25 16:27 06/27/25 16:30 06/27/25 17:00 Temperature Temperature Source Pulse Rate 98 H 98 H 100 H Pulse Rate [Right Radial] Respiratory Rate Blood Pressure 137/63 133/71 142/77 H Blood Pressure [Left Arm] Blood Pressure Mean Blood Pressure Mean [Left Arm] Blood Pressure Source [Left Arm] Blood Pressure Position [Left Arm] 02 Sat by Pulse Oximetry 97 98 97 Oxygen Delivery Method 06/27/25 17:30 06/27/25 18:00 Temperature Temperature Source Pulse Rate 102 H 110 H Pulse Rate [Right Radial] Respiratory Rate Blood Pressure 148/77 H 154/79 H Blood Pressure [Left Arm] Blood Pressure Mean Blood Pressure Mean [Left Arm] Blood Pressure Source [Left Arm] Blood Pressure Position [Left Arm] 02 Sat by Pulse Oximetry 97 98 Oxygen Delivery Method Lab Data Lab Results 06/27/25 15:03: SARS-CoV-2 (PCR) Not detected, Influenza A Untype (PCR) Not detected, Influenza Type B (PCR) Not detected 06/27/25 15:15: WBC 8.6, RBC 4.62, Hgb 13.0, Hct 37.4, MCV 81.0, MCH 28.1, MCHC 34.8, RDW 13.9, Plt Count 292, MPV 9.6, Neut % (Auto) 81.1 H, Lymph % (Auto) 12.7, Citrus % (Auto) 4.6, Eos % (Auto) 0.6, Baso % (Auto) 0.4, Neut # (Auto) 6.9, Lymph # (Auto) 1.1, Citrus # (Auto) 0.4, Eos # (Auto) 0.1, Baso # (Auto) 0.0, Sodium 138, Potassium 3.2 L, Chloride 104, Carbon Dioxide 23, Anion Gap 14.2, BUN 12, Creatinine 0.70, Estimated Creat Clear 63, Estimated GFR 84, Est GFR ( Amer) 101, Glucose 132 H, Calcium 8.9, Total Bilirubin 0.8, AST 31, ALT 18, Alkaline Phosphatase 129 H, Total Creatine Kinase 32, Troponin I < 0.01, Total Protein 7.3, Albumin 4.2, Globulin 3.1, Albumin/Globulin Ratio 1.4, Lipase 28 06/27/25 15:15 06/27/25 15:15 Orders (Tests/Meds): ED MEDICATIONS Discontinued Medications Generic Name Dose Route Start Last Admin Trade Name Zully PRN Reason Stop Dose Admin Lactated Ringer's 1,000 mls @ 999 mls/hr 06/27/25 15:44 06/27/25 16:58 Lactated Ringer's 1000 Ml Bag IV 06/27/25 16:44 Infused .Q1H1M ONE Infusion Iopamidol 75 ml 06/27/25 15:59 06/27/25 16:00 Iopamidol-370 (76%);100ml Bottle IV 06/27/25 16:00 75 ml ONCE ONE Administration Ondansetron HCl 4 mg 06/27/25 14:57 06/27/25 15:03 Ondansetron 4mg Odt SL 06/27/25 14:58 4 mg ONCE ONE Administration Ondansetron HCl 4 mg 06/27/25 15:44 06/27/25 15:48 Ondansetron 4mg/2ml Vial IV 06/27/25 15:45 4 mg ONCE ONE Administration Potassium Chloride 40 meq 06/27/25 16:51 06/27/25 17:02 Potassium Chloride 20meq Tab PO 06/27/25 16:52 40 meq ONCE ONE Administration Sodium Chloride 10 ml 06/27/25 15:59 06/27/25 16:00 Sodium Chloride 0.9% 10ml Syr (Rad Only) IV 06/27/25 16:00 10 ml ONCE ONE Administration ORDERS Category Date Time Status CT abdomen pelvis w con Stat Cat Scan 06/27/25 15:39 Completed CK [Creatine Kinase] Stat Lab 06/27/25 15:15 Completed Complete Blood Count Auto Diff Stat Lab 06/27/25 15:15 Completed Comprehensive Metabolic Panel Stat Lab 06/27/25 15:15 Completed Diarrhea 6-11 Panel, Cdiff PCR Stat Lab 06/27/25 15:39 Ordered Lipase Stat Lab 06/27/25 15:15 Completed Rapid PCR Covid and Flu A/B Stat Lab 06/27/25 15:03 Completed Troponin I Stat Lab 06/27/25 15:15 Completed ECG Data Tracing #1: I reviewed this ECG and interpreted as documented below: EKG personally interpreted by me demonstrates sinus tachycardia with a rate of 104 bpm, normal axis, no NM prolongation, narrow QRS, no QTc prolongation. No ST elevation or depression. No overt signs of ischemia or arrhythmia Medical Decision Narrative: This is a 64 old female patient who is presented to the Emergency Department today for evaluation of nausea, vomiting, and diarrhea for the last 3 days. Morbidities include hypertension, hyperlipidemia, type 2 diabetes, CAD status post stents, and tobacco abuse. On initial evaluation of the patient they were resting comfortably in no acute distress and nontoxic in appearance. They are hemodynamically stable, saturating well room air, and are neurologically intact. On physical exam she has a GCS of 15 heart and lungs are clear to auscultation bilaterally. She does have tenderness in the epigastric region and right upper quadrant. She is not frankly peritonitic. She appears dry clinically on exam. Differential diagnosis to include dehydration, electrolyte derangement, acute kidney injury, cholecystitis, pancreatitis, ACS/CT, intra-abdominal abscess, small bowel obstruction, among others. Workup was initiated with hematologic labs as well as a CT scan of the abdomen and pelvis with IV contrast. Initial interventions included IV Zofran as well as 1 L of lactated Ringer's. Labs personally turbid by me demonstrate hypokalemia with a potassium of 3.2. No signs of acute kidney injury. No leukocytosis. Otherwise labs are nonactionable. We did obtain a troponin out of an abundance of caution and it is less than 0.01. Delta was not obtained as she is not having chest pain and she has had symptoms of nausea, vomiting, and diarrhea for the last 3 days. We did try to obtain a stool study for the patient and she was unable to provide this to us. We proceeded with a CT scan of the abdomen and pelvis given that she was having epigastric tenderness with right upper quadrant tenderness on exam. CT scan of the abdomen and pelvis demonstrates no action or malady. On repeat assessment the patient she is able to tolerate oral intake with Zofran. I have informed her that her symptoms of nausea vomiting and diarrhea are likely due to underlying gastroenteritis. At this time all questions have been answered and all parties are agreeable with the decision to discharge home Critical Care Critical Care Time Critical Care Time: No
[2025-06-27 15:42] LABS: Alanine Aminotransferase 18 U/L (12-78); Albumin Level 4.2 g/dl (3.5-5.0); Albumin/Globulin Ratio 1.4 (1.1-1.8); Alkaline Phosphatase 129 U/L (38-126); Anion Gap 14.2 mEq/L (5-15); Aspartate Amino Transferase 31 U/L (14-36); Bilirubin,Total 0.8 mg/dl (0.2-1.3); Blood Urea Nitrogen 12 mg/dl (7-17); Calcium 8.9 mg/dl (8.4-10.2); Carbon Dioxide 23 mmol/L (22.0-30.0); Chloride 104 mmol/L (98-107); Creatinine Clearance Estimated 63 mL/min (50-200); Creatinine,Serum 0.70 mg/dl (0.52-1.04); Estimated Glomerular Filt Rate 84 ml/min (>60); GFR (African American) 101 ML/MIN (>60); Globulin 3.1 g/dL (1.3-3.2); Glucose 132 mg/dl (74-100); Potassium 3.2 mmoL/L (3.5-5.1); Sodium 138 mmol/L (136-145); Total Protein,Serum 7.3 g/dl (6.3-8.2)
[2025-06-27] MEDS: LACTATED RINGERS 1000ML 1,000 ML 999 ML IV (15:48)
[2025-06-27] MEDS: ONDANSETRON 4MG/2ML VIAL 4 MG IV (15:48)
[2025-06-27 15:56] LABS: Troponin I < 0.01 ng/ml (0.00-0.034)
[2025-06-27] MEDS: SODIUM CHLORIDE 0.9% 10ML SYR (RAD ONLY) 10 ML IV (16:00)
[2025-06-27] MEDS: IOPAMIDOL-370 (76%);100ML BOTTLE 75 ML IV (16:00)
[2025-06-27 16:09] LABS: Creatine Kinase 32 U/L (30-135); Lipase 28 U/L (23-300)
[2025-06-27] MEDS: POTASSIUM CHLORIDE 20MEQ TAB 40 MEQ PO (17:02)
== END 2025-06-27 18:36 | disposition home or self-care (01) ==
PROVIDERS: Student in an Organized Health Care Education/Training Program; Emergency Provider Student in an Organized Health Care Education/Training Program; PCP Family Medicine
DX: R10.816 Epigastric abdominal tenderness (principal); R11.2 Nausea with vomiting, unspecified; K52.9 Noninfective gastroenteritis and colitis, unspecified; R00.0 Tachycardia, unspecified
CPT/HCPCS: 74177; 80053; 82550; 83690; 84484; 85025; 87636; 93005; 96361; 96374; 99285; J2405; J7120; Q0162; Q9967

== ENCOUNTER 2025-09-04 10:16 | Outpatient (CLI) | payer MEDICARE, MEDICAID, SELFPAY ==
--- OUTSIDE RECORDS SUMMARY | 2025-02-08 16:30 | XMS_ITS ---
Author Organization [facility] D [facility] Address [address] [facility] [address] [place] [address] Care Team Providers Care Trackwalker Name Role Phone Rubio Diaz Primary Care Provider [phone] Migration, Provider Unavailable Unavailable Allergies Allergen (clinical drug ingredient) Drug/Non Drug Allergy documented on EMR Reaction Allergy Type Onset Date Status amoxicillin Amoxicillin rash Drug Allergy Act henrietta Penicillin rash Drug Allergy [facility] Encounter Medications Medication SIG (Take, [...] Active Encounters Encounter Location Date Provider Diagnosis [facility] [place] [address] [facility] [address] [place] [address] 02/08/2025 Provider Migration Diabetic polyneuropathy associated with [...] * Yasmine ESPINOZA RahulDOB:1960 (65 yo F)Acc No.[id number]:02/08/2025 Patient: Yasmine SHOOK Provider: Yamil Hernadez :1960 A ge:64 Y S ex:Female Date:02/08/2025 Address:[address] [place] [address] , [facility] [id number] Pcp:Rubio Diaz Subjective: * Chief Complaints: * [...] Electronic signature of Prov ider Migration on 09/08/2025 at 10:23 AM EST Sign off status: Pending * Provider: Yamil boyce Migration Date: 0 02/08/2025 Generated for Raymond rasheed/Ofelia/Christelle on: 1 11/08/2024 10:23 AM EST
--- OUTSIDE RECORDS SUMMARY | 2025-09-08 10:23 | XMS_ITS | Patient Health Record ---
Author Organization [facility] Address [address] [facility] [address] [place] [address] Care Team Providers Care Pecan Cleaner Name Role Phone Rubio Diaz Primary Care Provider [phone] Migration, Provider Unavailable Unavailable Allergies Allergen (clinical [...] Vaccine Route Administration Date Status Comme nts FLUZONE 6MO - OLDER IM Intramuscular 07/22/2019 Administer ed FLUZONE 6MO - OLDER IM Intramuscular 07/01/2020 Administer ed Influenza (Fluzone)--Medicare only IM Intramuscular 09/23/2011 Administered Influenza (Fluzone)--Medicare only IM Intramuscular 08/07/2012 Administered Influenza (Fluzone)--Medicare only IM Intramuscular 08/20/2018 Administered Social History Tobacco Use: Social History Observation [...] Status Risk Notes Problem Generalized anxiety disorder (19382746) Generalized anxiety disorder (F41.1) Active confirmed Problem Primary insomnia (6032684) Primary insomnia (F51.01) Active confirmed Problem Chronic pain syndrome (109181051) Chronic pain syndrome (G89.4) Active confirmed Problem Mixed anxiety and depressive disorder (340809594) Depression with anxiety (F41.8) Active confirmed Problem Type II diabetes mellitus without complication (349796896) Diabetes mellitus type 2, noninsulin dependent (E11.9) Active confirmed Problem Acute exacerbation of chronic obstructive airways disease (110260942) COPD exacerbation (J44.1) Active confirmed Problem Chronic obstructive pulmonary disease (68492587) 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) Active confirmed Problem Dizziness (215176225) Dizziness (R42) Active confirmed Problem Primary osteoarthritis (306284478) Primary osteoarthritis involving multiple joints (M15.0) Active confirmed Problem Polyneuropathy due to type 2 diabetes mellitus (112716686) Diabetic polyneuropathy associated with type 2 diabetes mellitus (E11.42) Active confirmed Problem Chronic insomnia (943147869) Chronic insomnia (F51.04) Active confirmed Problem Ataxia (48306981) Ataxia (R27.0) Active confirm ed Problem Neuropathy due to type 2 diabetes mellitus (615734520457115) Type 2 diabetes, controlled, with neuropathy (E11.40) Active confirmed Problem Tobacco use (642399955) Tobacco use disorder (F17.200) Active confirmed Problem Essential hypertension (81435872) Hypertension, unspecified type (I10) Active confirmed Encounters Encounter Location Date Provider Diagnosis [facility] JANELL [address] [facility] [address] [place] [address] 02/08/2025 Provider Migration Diabetic polyneuropathy associated with [...] AUTO DIFF 03/07/2018 H-CBC with AUTO DIFF 02/27/2012 H-CBC with AUTO DIFF 05/22/2013 H-VITAMIN B12 09/18/2017 H-PT/INR 02/27/2012 H-CMP 05/22/2013 H-LIPID PANEL 05/22/2013 H-HGBA1C 03/07/2018 H-TSH 05/22/2013 M-Vitamin D 25 Hydroxy 06/08/2020 Insurance Providers Payer Name Payer Address Payer Phone Subscriber Number Group Number Insured Name Patient Relationship to Insured Coverage Start Date Coverage End Date [place] [address] [place] [address] [id number] Yasmine Sagastume Self - patient is the insured MEDICAID [place] [address] [place] [address] [id number] Yasmine Sagastume Self - patient is the [...]
--- OUTSIDE RECORDS SUMMARY | 2025-09-08 10:23 | XMS_ITS | Clinical Summary ---
Author Organization [facility] Address [address] [place] [address] Care Team Providers Care Automotive Sales Manager Name Role Phone Rubio Mcdonnell MD Primary [...] Date Last Done Comments DXA SCAN 1960 COVID-19 Vaccine (#1) 1963 TDAP/TD VACCINES (1 - Tdap) 1977 MAMMOGRAM 1998 COLOGUARD 2003 COLON CANCER SCREENING 5 YEAR SIGMOIDOSCOPY 2003 COLONOSCOPY [address] CANCER SCREENING 2003 CT COLONOGRAPHY 2003 FECAL OCCULT BLOOD TEST 2003 FIT Testing (1 year) 2003 ZOSTER VACCINE (1 of 2) 2008 Pneumococcal Vaccine 50+ (2 of 2 - PCV) 12/05/2017 0 12/05/2016 ANNUAL WELLNESS VISIT 02/11/2021 INFLUENZA VACCINE 06/06/2025 HEPATITIS C SCREENING Completed 05/20/[address] [place] [address] MEDICAID [id number] MED[place] A & B Care Teams Automotive Sales Manager Relationship Specialty Start Date End Date Rubio Mcdonnell MD PCP - General Family Medicine 02/04/21
--- OUTSIDE RECORDS SUMMARY | 2025-09-08 10:23 | XMS_ITS | Clinical Summary ---
Author Organization [facility] Address [address] [id number] Care Team Providers Care Hospice Registered Nurse Name Role Phone Santana Pang MD Primary Care Provider + [phone] Allergies No known active allergies Medications fluticasone [...] A1C 1960 [facility]-Medicare Annual Wellness (AWV) 1958 [facility]-Infant/Child/Adol SDOH Screenings 1960 [id number] Vaccine (#1) 1963 [facility]- SDOH Screenings 1976 [...] Antibody Negative Negative 05/20/2024 9:10 PM EDT [facility] Blood Venous blood specimen / Unknown Venipuncture / Unknown 05/20/2024 8:09 PM EDT 05/20/2024 8:29 PM EDT us Grayson Sagastume MD LAB BLOOD ORDERABLES Final Resul t [facility] [address] [place] [address] from Last 3 Months or Most Recently Relevant to Health Maintenance Insurance [facility] [place] [address] [place] [facility] AUTO Member Subscriber Plan / Payer (Ef fective 2024-Present) Name:Tanika Yasmine Jessica Member ID:[id number] Relation to Subscriber:Self Name:Yasmine Sagastume Subscriber ID:[id number] Payer ID:Not on file Group ID:Not on file Type:Not on file Address: [address] [place] [phone] Advance Directives * Full Code (Latest Code Status on File) Date Activated Date Inactivated Comments 05/21/2024 1:25 AM 05/22/2024 7:28 PM Question Answer Comments Patient has decision-making capacity? Yes Care Teams Hospice Registered Nurse Relationship Specialty Start Date End Date Santana Pang MD [address] [place] [address] PCP - General 03/19/21
--- OUTSIDE RECORDS SUMMARY | 2025-09-08 10:23 | XMS_ITS | Referral Summary ---
Author Organization [employer] ([place], [place], [place], [place], [place]) Address [address] [place] [address] Care Team Providers Care Cash Van Salesperson Name Role Phone Sj, Provider Not In [...] on file Insurance [place] OF [place] [facility] Care Teams Cash Van Salesperson Relationship Specialty Start Date End Date [facility], Provider Not In The System, [place] [address] PCP - General 04/18/23 [facility], Provider Not In The System, [place] [address] 04/18/23 [facility], Provider Not In The System, [place] [address] Referring Physician 04/18/23 [facility], Provider Not In The System, [place] [address] Referring Physician 04/18/23
--- OUTSIDE RECORDS SUMMARY | 2025-09-08 10:23 | XMS_ITS | Clinical Summary ---
Author Organization [employer] ([place], [place], [place], [place], [place]) Address [address] [place] [address] Care Team Providers Care Power Bender Operator Name Role Phone Sj, Provider Not [...] on file Insurance [place] [facility] Care Teams Power Bender Operator Relationship Specialty Start Date End Date [facility], Provider Not In The System, [place] [address] PCP - General 04/18/23 [facility], Provider Not In The System, [place] [address] 04/18/23 [facility], Provider Not In The System, [place] [address] Referring Physician 04/18/23 [facility], Provider Not In The System, [place] [address] Referring Physician 04/18/23
== END 2025-09-04 23:59 ==
LOC: LAB.DROPOF 09-08 10:17
PROVIDERS: PCP Family Medicine; Visit Provider Family Medicine
DX: E11.42 Type 2 diabetes mellitus with diabetic polyneuropathy (principal)
CPT/HCPCS: 82043; 82570

== ENCOUNTER 2025-09-18 12:54 | Outpatient (CLI) | payer MEDICARE, MEDICAID, SELFPAY ==
--- OUTSIDE RECORDS SUMMARY | 2025-02-08 16:30 | XMS_ITS ---
Author Organization [facility] Address [address] [facility] [address] [place] [address] Care Team Providers Care Water Pollution Control Technician Name Role Phone Rubio Diaz Primary Care Provider Migration, Provider Unavailable Unavailable Allergies Allergen (clinical drug ingredient) Drug/Non Drug Allergy documented on EMR Reaction Allergy Type Onset Date Status amoxicillin Amoxicillin rash Drug Allergy Act henrietta Penicillin rash Drug Allergy [facility] Conversion Encounter Medications Medication SIG (Take, [...] Active Encounters Encounter Location Date Provider Diagnosis [facility] [place] [address] [facility] [address] [place] [address] 02/08/2025 Provider Migration Diabetic polyneuropathy associated with [...] * Yasmine ESPINOZA RahulDOB:1960 (65 yo F)Acc No.[id number]:02/08/2025 Patient: Yasmine SHOOK Provider: Yamil Hernadez :1960 A ge:64 Y S ex:Female Date:02/08/2025 Address:[address] [place] [address] , [facility] [id number] Pcp:Rubio Diaz Subjective: * Chief Complaints: * [...] Electronic signature of Prov ider Migration on 09/18/2025 at 12:57 PM EST Sign off status: Pending * Provider: Yamil boyce Migration Date: 0 02/08/2025 Generated for Raymond rasheed/Ofelia/Christelle on: 1 11/18/2024 12:57 PM EST
--- OUTSIDE RECORDS SUMMARY | 2025-09-18 12:57 | XMS_ITS | Referral Summary ---
Author Organization [employer] ([place], [place], [place], [place], [place]) Address [address] [place] [address] Care Team Providers Care Cytology Supervisor Name Role Phone Sj, Provider Not In [...] Not on file Insurance [place] ACCESS O [facility] Care Teams Cytology Supervisor Relationship Specialty Start Date End Date [facility], Provider Not In The System, [place] [address] PCP - General 04/18/23 [facility], Provider Not In The System, [place] [address] 04/18/23 [facility], Provider Not In The System, [place] [address] Referring Physician 04/18/23 [facility], Provider Not In The System, [place] [address] Referring Physician 04/18/23
--- OUTSIDE RECORDS SUMMARY | 2025-09-18 12:57 | XMS_ITS | Clinical Summary ---
Author Organization [facility] Address [address] [place] [address] Care Team Providers Care Cvir Tech Name Role Phone Rubio Mcdonnell MD Primary [...] C SCREENING Completed 05/20/[address] [place] [address] MEDICAID [id number] MEDICARE A & B Care Teams Cvir Tech Relationship Specialty Start Date End Date Rubio Mcdonnell MD PCP - General Family Medicine 02/04/21
--- OUTSIDE RECORDS SUMMARY | 2025-09-18 12:57 | XMS_ITS | Patient Health Record ---
Author Organization [facility] Address [address] [facility] [address] [place] [address] Care Team Providers Care Shellfish Processing Machine Tender Name Role Phone Rubio Diaz Primary Care [...] Status Risk Notes Problem Generalized anxiety disorder (42526013) Generalized anxiety disorder (F41.1) Active confirmed Problem Primary insomnia (0770452) Primary insomnia (F51.01) Active confirmed Problem Chronic pain syndrome (971209309) Chronic pain syndrome (G89.4) Active confirmed Problem Mixed anxiety and depressive disorder (013977474) Depression with anxiety (F41.8) Active confirmed Problem Type II diabetes mellitus without complication (710772515) Diabetes mellitus type 2, noninsulin dependent (E11.9) Active confirmed Problem Acute exacerbation of chronic obstructive airways disease (966708565) COPD exacerbation (J44.1) Active confirmed Problem Chronic obstructive pulmonary disease (24511631) 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) Active confirmed Problem Dizziness (396273925) Dizziness (R42) Active confirmed Problem Primary osteoarthritis (259160167) Primary osteoarthritis involving multiple joints (M15.0) Active confirmed Problem Polyneuropathy due to type 2 diabetes mellitus (811595964) Diabetic polyneuropathy associated with type 2 diabetes mellitus (E11.42) Active confirmed Problem Chronic insomnia (214961239) Chronic insomnia (F51.04) Active confirmed Problem Ataxia (29818299) Ataxia (R27.0) Active confirm ed Problem Neuropathy due to type 2 diabetes mellitus (632897827687550) Type 2 diabetes, controlled, with neuropathy (E11.40) Active confirmed Problem Tobacco use (935302643) Tobacco use disorder (F17.200) Active confirmed Problem Essential hypertension (37809564) Hypertension, unspecified type (I10) Active confirmed Encounters Encounter Location Date Provider Diagnosis [facility] JANELL [address] [facility] [address] [place] [address] 02/08/2025 Provider Migration Diabetic polyneuropathy associated with [...] DIFF 02/27/2012 H-CBC with AUTO DIFF 05/22/2013 H-CBC with AUTO DIFF 03/07/2018 H-VITAMIN B12 09/18/2017 H-PT/INR 02/27/2012 H-CMP 05/22/2013 H-LIPID PANEL 05/22/2013 H-HGBA1C 03/07/2018 H-TSH 05/22/2013 M-Vitamin D 25 Hydroxy 06/08/2020 Insurance Providers Payer Name Payer Address Payer Phone Subscriber Number Group Number Insured Name Patient Relationship to Insured Coverage Start Date Coverage End Date [place] [address] [place] [place] [address] [id number] Yasmine Sagastume Self - patient is the insured MEDICAID EDS [address] [place] [id number] Yasmine Sagastume Self - patient is the [...]
--- OUTSIDE RECORDS SUMMARY | 2025-09-18 12:58 | XMS_ITS | Clinical Summary ---
Author Organization [facility] Address [address] [id number] Care Team Providers Care Investigator Fraud Name Role Phone Santana Pang MD Primary Care Provider + [phone] Allergies No known active allergies Medications fluticasone [...] Wellness (AWV) 1960 [facility]-/Child/Adol SDOH Screenings 1960 [id number] Vaccine (#1) 1963 [facility]Y- SDOH Screenings 1976 [...] Antibody Negative Negative 05/20/2024 9:10 PM EDT [facility] Blood Venous blood specimen / Unknown Venipuncture / Unknown 05/20/2024 8:09 PM EDT 05/20/2024 8:29 PM EDT us Grayson Sagastume MD LAB BLOOD ORDERABLES Final Resul t [facility] [address] [place] [address] from Last 3 Months or Most Recently Relevant to Health Maintenance Insurance [facility] [place] [address] [place] [facility] AUTO Member Subscriber Plan / Payer (Ef fective 2024-Present) Name:Tanika Yasmine Jessica Member ID:[id number] Relation to Subscriber:Self Name:Yasmine Sagastume Subscriber ID:[id number] Payer ID:Not on file Group ID:Not on file Type:Not on file Address: [address] [place] [phone] Advance Directives * Full Code (Latest Code Status on File) Date Activated Date Inactivated Comments 05/21/2024 1:25 AM 05/22/2024 7:28 PM Question Answer Comments Patient has decision-making capacity? Yes Care Teams Investigator Fraud Relationship Specialty Start Date End Date Santana Pang MD [address] [place] [address] PCP - General 03/19/21
--- OUTSIDE RECORDS SUMMARY | 2025-09-18 12:58 | XMS_ITS | Clinical Summary ---
Author Organization [facility] ([place], [place], [place], [place]) Address [address] [place] [address] Care Team Providers Care Belt Lacer Name Role Phone Sj, Provider Not In [...] file Insurance [place] ACC[place] [facility] Care Teams Belt Lacer Relationship Specialty Start Date End Date [facility], Provider Not In The System, [place] [address] PCP - General 04/18/23 [facility], Provider Not In The System, [place] [address] 04/18/23 [facility], Provider Not In The System, [place] [address] Referring Physician 04/18/23 [facility], Provider Not In The System, [place] [address] Referring Physician 04/18/23
--- NOTE | 2025-09-18 13:00 | CT_ITS ---
FINAL REPORT CLINICAL HISTORY: lung cancer screening. Smokes 1 ppd x55 yrs. Possible emphysema. COMPARISON: 06/17/2025 FINDINGS: CT CHEST LOW DOSE SCREENING HISTORY: Screening exam for lung cancer. 65-year-old female, current smoker, 99-yjth-nugt history. DOSE: CTDI vol: 2.90 mGy, DLP: 104.99 mGy*cm TECHNIQUE: Axial CT without IV contrast administration using low dose protocol. This study was performed with techniques to keep radiation doses as low as reasonably achievable, (ALARA). Individualized dose reduction techniques using automated exposure control or adjustment of mA and/or kV according to the patient's size were employed. There is a cluster of peripheral nodules in the posterior right upper lobe, best seen on image #45 of series 4. These are likely inflammatory, and may represent bronchiolitis. The left lung is clear. The 3 mm right upper lobe nodule seen on the prior exam is stable, best seen on image #41 of series 4. No pleural or pericardial effusion is seen. No adenopathy or mass lesion is present. IMPRESSION: New cluster of peripheral nodules in the right upper lobe, likely inflammatory, possibly bronchiolitis. Stable 3 mm right upper lobe nodule. LUNG RADS CATEGORY 2S, the S designation for the cluster of nodules as described above. RECOMMENDATION: 12 month LDCT follow up Reviewed, Interpreted and Dictated by Ervin Hough MD Transcribed by Elise Arthur Authenticated and [facility]
== END 2025-09-18 23:59 | disposition home or self-care (01) ==
LOC: RAD 12:54
PROVIDERS: PCP Family Medicine; Visit Provider Family Medicine
DX: Z12.2 Encounter for screening for malignant neoplasm of respiratory organs (principal); F17.210 Nicotine dependence, cigarettes, uncomplicated; R91.8 Other nonspecific abnormal finding of lung field
CPT/HCPCS: 71271

== ENCOUNTER 2025-10-01 11:08 | Outpatient (CLI) | payer MEDICARE, MEDICAID, SELFPAY ==
--- OUTSIDE RECORDS SUMMARY | 2025-02-08 16:30 | XMS_ITS ---
Author Organization [facility] D [facility] Address [address] [facility] [address] [place] [address] Care Team Providers Care Town Clerk Name Role Phone Rubio Diaz Primary Care Provider Migration, Provider Unavailable Unavailable Allergies Allergen (clinical drug ingredient) Drug/Non Drug Allergy documented on EMR Reaction Allergy Type Onset Date Status amoxicillin Amoxicillin rash Drug Allergy Act henrietta Penicillin rash Drug Allergy Active [facility]ISIT [facility] Conversion Encounter Medications Medication SIG (Take, Route, Frequency, Duration) Notes Start Date End Date Status D 2000 IU 2000 INTL UNITS DIRECTED ORALLY ONCE A DAY; Duration: 30 DAY(S) *Please review for potential replacement for e-prescription and drug interaction check* 06/12/2020 Active B-12 2500 MCG 1 tab(s) sublingually once a day; Duration: 30 day(s) 06/12/2020 Active Bisoprolol Fumarate 5 MG 1 tab(s) orally once a day at bedtime; Duration: 30 days Active PROAIR HFA 90 MCG/INH 2 PUFF(S) INHALED EVERY 6 HOURS PRN *Please review for potential replacement for e-prescription and drug interaction check* Active Cefdinir 300 MG 1 cap(s) orally every 12 hours; Duration: 7 day(s) 07/14/2020 Active DULoxetine HCl 60 MG 1 cap(s) orally once a day; Duration: 90 days Active Klor-Con M10 10 MEQ 1 tab(s) orally once daily Active DULoxetine HCl 30 MG 1 cap(s) orally once a day; Duration: 90 days 06/08/2020 Active Omeprazole 20 MG 1 cap(s) orally once a day; Duration: 30 day(s) 04/27/2020 Active metFORMIN HCl 1000 MG 1 tab(s) orally once a day Active Aspirin 81 MG 1 tab(s) orally once a day; Duration: 30 day(s) Active Furosemide 20 MG 1 tab(s) orally once a day; Duration: 30 day(s) 02/10/2020 Active TEST STRIPS AND LANCETS NA FOR DIABETIC TESTING NA ONCE DAILY; Duration: 30 DAYS diagnosis: E11.9 *Please review for potential replacement for e-prescription and drug interaction check* 01/07/2020 Active Celecoxib 200 MG 1 cap(s) orally 2 times a day Active Flonase Allergy Relief 50 MCG/ACT 2 spray(s) intranasally once a day Active Gabapentin 600 MG 1 tab(s) orally 3 times a day; Duration: 30 day(s) 07/22/2019 Active Atorvastatin Calcium 10 MG 1 tab(s) orally once a day Active Amitriptyline HCl 50 MG 1 tab(s) orally once a day (at bedtime) Active Azithromycin 250 MG 2 tablets on the first day, then 1 tablet daily for 4 days orally once a day; Duration: 5 days 07/27/2020 Active clonazePAM 0.5 MG 1 tab(s) orally twice daily; Duration: 30 days Active ROBITUSSIN COUGH + CHEST CONGESTION DM 20 MG-200 MG/20 ML 10 ML ORALLY EVERY 4 HOURS PRN; Duration: 5 DAYS *Please review for potential replacement for e-prescription and drug interaction check* 07/21/2020 Active Encounters Encounter Location Date Provider Diagnosis [facility] [place] [address] [facility] [address] [place] [address] 02/08/2025 Provider Migration Diabetic polyneuropathy associated with type 2 diabetes mellitus E11.42 and Generalized anxiety disorder F41.1 Assessments Encounter Date Diagnosis (ICD Code) Assessment Notes Treatment Notes Treatment Clinical Notes Section Notes 02/08/2025 Diabetic polyneuropathy associated with type 2 diabetes mellitus (ICD-10 - E11.42) 02/08/2025 Generalized anxiety disorder (ICD-10 - F41.1) Plan Of Treatment Medication Medication Name Sig Start Date Stop Date Notes Cefdinir 300 MG 1 cap(s) orally every 12 hours; Duration: 7 day(s) 07/14/2020 Omeprazole 20 MG 1 cap(s) orally once a day; Duration: 30 day(s) 04/27/2020 metFORMIN HCl 1000 MG 1 tab(s) orally once a day Gabapentin 600 MG 1 tab(s) orally 3 times a day; Duration: 30 day(s) 07/22/2019 Azithromycin 250 MG 2 tablets on the first day, then 1 tablet daily for 4 days orally once a day; Duration: 5 days 07/27/2020 clonazePAM 0.5 MG 1 tab(s) orally twice daily; Duration: 30 days ROBITUSSIN COUGH + CHEST CONGESTION DM 20 MG-200 MG/20 ML 10 ML ORALLY EVERY 4 HOURS PRN; Duration: 5 DAYS 07/21/2020 *Please review for potential replacement for e-prescription and drug interaction check* Progress Notes * Yasmine ESPINOZA RahulDOB:1960 (65 yo F)Acc No.[id number]:02/08/2025 Patient: Yasmine SHOOK Provider: Yamil Hernadez :1960 A ge:64 Y S ex:Female Date:02/08/2025 Address:[address] [place] [address] , [facility] [id number] Pcp:Rubio Diaz Subjective: * Chief Complaints: * 1 . [facility] Conversion Encounter. * Medical History: * Medications: T aking Atorvastatin Calcium 10 MG Tablet 1 tab(s) orally once a day , Taking Amitriptyline HCl 50 MG Tablet 1 tab(s) orally once a day (at bedtime) , Taking Aspirin 81 MG Tablet Delayed Release 1 tab(s) orally once a day , Taking Furosemide 20 MG Tablet 1 tab(s) orally once a day , Taking TEST STRIPS AND LANCETS NA PER INSURANCE COVERAGE WITH GLUCOMETER FOR DIABETIC TESTING NA ONCE DAILY , Notes to Pharmacist: diagnosis: E11.9 *Please review for potential replacement for e-prescription and drug interaction check*, Taking Celecoxib 200 MG Capsule 1 cap(s) orally 2 times a day , Taking Flonase Allergy Relief 50 MCG/ACT Suspension 2 spray(s) intranasally once a day , Taking DULoxetine HCl 30 MG Capsule Delayed Release Particles 1 cap(s) orally once a day , Taking DULoxetine HCl 60 MG Capsule Delayed Release Particles 1 cap(s) orally once a day , Taking Klor-Con M10 10 MEQ Tablet Extended Release 1 tab(s) orally once daily , Taking D 2000 IU 2000 INTL UNITS TABLET DIRECTED ORALLY ONCE A DAY , Notes to Pharmacist: *Please review for potential replacement for e-prescription and drug interaction check*, Taking B-12 2500 MCG Tablet 1 tab(s) sublingually once a day , Taking Bisoprolol Fumarate 5 MG Tablet 1 tab(s) orally once a day at bedtime , Taking PROAIR HFA 90 MCG/INH AEROSOL 2 PUFF(S) INHALED EVERY 6 HOURS PRN , Notes to Pharmacist: *Please review for potential replacement for e-prescription and drug interaction check* * Allergies: A moxicillin: rash, Penicillin: rash. Objective: * Vitals: Assessment: * Assessment: 1. D iabetic polyneuropathy associated with type 2 diabetes mellitus - E11.42 2 . G eneralized anxiety disorder - F41.1 Plan: * Treatment: 2. G eneralized anxiety disorder Refill clonazePAM Tablet, 0.5 MG, 1 tab(s), orally, twice daily, 30 days, 60, Refills 1. 3. O thers Start Cefdinir Capsule, 300 MG, 1 cap(s), orally, every 12 hours, 7 day(s), 14 Capsule, Refills 0;?Start ROBITUSSIN COUGH + CHEST CONGESTION DM LIQUID, 20 MG-200 MG/20 ML, 10 ML, ORALLY, EVERY 4 HOURS PRN, 5 DAYS, 8 OUNCE, Refills 0, Notes to Pharmacist: *Please review for potential replacement for e-prescription and drug interaction check*; S tart Azithromycin Tablet, 250 MG, 2 tablets on the first day, then 1 tablet daily for 4 days, orally, once a day, 5 days, 1 Pack, Refills 0;?Refill Omeprazole Capsule Delayed Release, 20 MG, 1 cap(s), orally, once a day, 30 day(s), 30, Refills 3; R efill metFORMIN HCl Tablet, 1000 MG, 1 tab(s), orally, once a day, 30, Refills 2. * * Electronic signature of Prov ider Migration on 10/01/2025 at 11:12 AM EST Sign off status: Pending * Provider: Yamil boyce Migration Date: 0 02/08/2025 Generated for Raymond rasheed/Ofelia/Christelle on: 12/01/2024 11:12 AM EST
--- NOTE | 2025-10-01 | CA_ITS ---
APPROVED REPORT Exam: Pharmacologic Technologist: Carmelita Frias Stress Nurse: Marj GARCIA, RN Ht: 5 ft 2 in Wt: 169 lbs BSA: 1.78 m2 HR: 66 bpm BP: 151/75 mmHg Indications: Known coronary artery disease, chest pain Stress Test Details Test: Lexiscan HR Resting HR: 66 bpm Max Heart Rate (APMHR): 153.827695 bpm Max HR Achieved: 100 bpm Target HR (85% APMHR): 130.760967 bpm % of APMHR: 65.36 Recovery HR: 89 bpm BP Resting BP: 151.0/75.0 mmHg Max BP: 156.0/87.0 mmHg Recovery BP: 151.0/86.0 mmHg ECG Resting ECG: Sinus rhythm Stress ECG Conclusion Lungs clear to auscultation prior to test start. Symptoms: None Arrhythmias/Ectopy: PAC ST-T Changes: Less than 0.[address] segment changes. Electronically signed by : Jannet Daley MD 10/05/2025 22:27:04
--- OUTSIDE RECORDS SUMMARY | 2025-10-01 11:12 | XMS_ITS | Referral Summary ---
Author Organization [facility] ([place], [place], [place], [place], [place]) Address [address] [place] [address] Care Team Providers Care Roadmaster Name Role Phone Sj, Provider Not In [...] file Insurance [place] [facility] Care Teams Roadmaster Relationship Specialty Start Date End Date [facility], Provider Not In The System, [place] [address] PCP - General 04/18/23 [facility], Provider Not In The System, [place] [address] 04/18/23 [facility], Provider Not In The System, [place] [address] Referring Physician 04/18/23 [facility], Provider Not In The System, [place] [address] Referring Physician 04/18/23
--- OUTSIDE RECORDS SUMMARY | 2025-10-01 11:12 | XMS_ITS | Clinical Summary ---
Author Organization [facility] Address [address] [place] [address] Care Team Providers Care Small Arms Artillery Repairer Name Role Phone Rubio Mcdonnell MD Primary [...] C SCREENING Completed 05/20/[address] [place] [address] MEDICAID [place] MEDICARE A & B Care Teams Small Arms Artillery Repairer Relationship Specialty Start Date End Date Rubio Mcdonnell MD PCP - General Family Medicine 02/04/21
--- OUTSIDE RECORDS SUMMARY | 2025-10-01 11:12 | XMS_ITS | Patient Health Record ---
Author Organization [facility] Address [address] [facility] [address] [place] [address] Care Team Providers Care Catastrophe Claims Supervisor Name Role Phone Rubio Diaz Primary Care Provider Migration, Provider Unavailable Unavailable Allergies Allergen (clinical drug ingredient) Drug/Non Drug Allergy documented on EMR Reaction Allergy Type Onset Date Status amoxicillin Amoxicillin rash Drug Allergy Act henriteta Penicillin rash Drug Allergy Active Medications Medication [...] Status Risk Notes Problem Generalized anxiety disorder (38686384) Generalized anxiety disorder (F41.1) Active confirmed Problem Primary insomnia (2602192) Primary insomnia (F51.01) Active confirmed Problem Chronic pain syndrome (279819331) Chronic pain syndrome (G89.4) Active confirmed Problem Mixed anxiety and depressive disorder (892921998) Depression with anxiety (F41.8) Active confirmed Problem Type II diabetes mellitus without complication (431104722) Diabetes mellitus type 2, noninsulin dependent (E11.9) Active confirmed Problem Acute exacerbation of chronic obstructive airways disease (159169349) COPD exacerbation (J44.1) Active confirmed Problem Chronic obstructive pulmonary disease (12866315) 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) Active confirmed Problem Dizziness (865089454) Dizziness (R42) Active confirmed Problem Primary osteoarthritis (557745209) Primary osteoarthritis involving multiple joints (M15.0) Active confirmed Problem Polyneuropathy due to type 2 diabetes mellitus (130665057) Diabetic polyneuropathy associated with type 2 diabetes mellitus (E11.42) Active confirmed Problem Chronic insomnia (642759209) Chronic insomnia (F51.04) Active confirmed Problem Ataxia (61558084) Ataxia (R27.0) Active confirm ed Problem Neuropathy due to type 2 diabetes mellitus (160117971666796) Type 2 diabetes, controlled, with neuropathy (E11.40) Active confirmed Problem Tobacco use (820075477) Tobacco use disorder (F17.200) Active confirmed Problem Essential hypertension (47884191) Hypertension, unspecified type (I10) Active confirmed Encounters Encounter Location Date Provider Diagnosis [facility] JANELL [address] [facility] [address] [place] [address] 02/08/2025 Provider Migration Diabetic polyneuropathy associated with [...] End Date [place] [address] [place] [place] [address] [id number] Yasmine Sagastume Self - patient is the insured MEDICAID EDS [address] [place] [id number] Yasmine Sagastume Self - patient is the [...]
--- OUTSIDE RECORDS SUMMARY | 2025-10-01 11:12 | XMS_ITS | Clinical Summary ---
Author Organization [facility] Address [address] [id number] Care Team Providers Care Monotypist Name Role Phone Santana Pang MD Primary Care Provider + [phone] Allergies No known active allergies Medications fluticasone [...] Wellness (AWV) 1960 [facility]-/Child/Adol SDOH Screenings 1960 [id number] Vaccine (#1) 1965 [facility]- SDOH Screenings 1976 [...] Antibody Negative Negative 05/20/2024 9:10 PM EDT [facility] Blood Venous blood specimen / Unknown Venipuncture / Unknown 05/20/2024 8:09 PM EDT 05/20/2024 8:29 PM EDT us Grayson Sagastume MD LAB BLOOD ORDERABLES Final Resul t [facility] [address] [place] [address] from Last 3 Months or Most Recently Relevant to Health Maintenance Insurance [facility] [place] [address] [place] [facility] AUTO Member Subscriber Plan / Payer (Ef fective 2024-Present) Name:Tanika Yasmine Jessica Member ID:[id number] Relation to Subscriber:Self Name:Yasmine Sagastume Subscriber ID:[id number] Payer ID:Not on file Group ID:Not on file Type:Not on file Address: [address] [place] [phone] Advance Directives * Full Code (Latest Code Status on File) Date Activated Date Inactivated Comments 05/21/2024 1:25 AM 05/22/2024 7:28 PM Question Answer Comments Patient has decision-making capacity? Yes Care Teams Monotypist Relationship Specialty Start Date End Date Santana Pang MD [address] [place] [address] PCP - General 03/19/21
--- OUTSIDE RECORDS SUMMARY | 2025-10-01 11:12 | XMS_ITS | Clinical Summary ---
Author Organization [employer] ([place], [place], [place], [place], [place]) Address [address] [place] [address] Care Team Providers Care Explosive Operator Supervisor Name Role Phone Sj, Provider Not [...] file Insurance [place] [facility] Care Teams Explosive Operator Supervisor Relationship Specialty Start Date End Date [facility], Provider Not In The System, [place] [address] PCP - General 04/18/23 [facility], Provider Not In The System, [place] [address] 04/18/23 [facility], Provider Not In The System, [place] [address] Referring Physician 04/18/23 [facility], Provider Not In The System, [place] [address] Referring Physician 04/18/23
--- NOTE | 2025-10-01 11:15 | CA_ITS ---
APPROVED REPORT EXAM: Comprehensive 2D, Doppler, and color-flow Echocardiogram Quebracho Tanner: Eli Anders CRT Ht: 5 ft 2 in Wt: 169lbs BSA: 1.78 BP: 104/50 mmHg Indications: Chest Pain, Shortness of Breath, Diabetes, CAD, Hyperlipidemia, Hypertension/HDD, smoker 2D Dimensions LA Volume 52.80 mL LA Volume Index 29.00 mL/m2 (M/F) 16-34 M-Mode Dimensions RVDd 3.00 cm (0.9-2.6) LA Diam 4.04 cm (1.9-4.0) LVDd 3.95 cm (3.5-5.7) LVDs 2.47 cm (3.5-5.7) IVSd 1.79 cm (0.6-1.1) PWd 1.10 cm (0.6-1.1) EF (Teich) 68.00% FS 37.50% EDV (Teich) 67.90 mL TAPSE 2.22 (<1.7) ESV (Teich) 21.70 mL LV Diastology E Decel Time 150 (160-240 msec) E/A Ratio 0.76 MED A' 9.20 cm/s LAT A' 12.30 cm/s Aortic Valve AO Peak GR. 7.60 mmHg Mitral Valve MV E Max Efren. 65.0 (40-130 cm/s) MV A Velocity 85.0 (40-130 cm/s) E/A Ratio 0.76 MV PHT 44.0 ms Pulmonary Valve PV Peak Velocity 107.0 (50-150 cm/s) Tricuspid Valve TR P. Velocity 253.00 cm/s RAP Estimate 10.00 mmHg RVSP 35.50 mmHg Left Ventricle The left ventricle is normal size. Left ventricular systolic function is normal. The left ventricular ejection fraction is within the normal range. There is increased left ventricular wall thickness. There is normal LV segmental wall motion. Transmitral Doppler flow pattern suggests impaired LV relaxation. LVEF is 55% Right Ventricle The right ventricle is normal size. The right ventricular systolic function is normal. Atria Left atrium is moderately dilated. The right atrium size is normal. There is no color Doppler evidence of interatrial shunt. Aortic Valve The aortic valve is mildly thickened. There is no hemodynamically significant aortic valvular stenosis. Trace aortic regurgitation is present. Mitral Valve The mitral valve is normal in structure. No evidence of mitral valve stenosis. Mild mitral regurgitation is present. Tricuspid Valve The tricuspid valve leaflets are thin and pliable. Mild tricuspid regurgitation. RVSP is 20-25 mmHg. Pulmonic Valve The pulmonary valve is grossly normal in structure. Trace pulmonic valve regurgitation is present. Great Vessels The aortic root is normal in size. IVC is normal in size and collapses >50% with inspiration. Pericardium There is no pericardial effusion. Other Information Study Quality: Fair Conclusion Normal biventricular systolic function. LA dilation. Mild MR, mild TR. Electronically signed by : Jannet Daley MD 10/13/2025 15:30:29
--- NOTE | 2025-10-01 12:00 | NM_ITS ---
APPROVED REPORT Exam: Nuclear Stress Test Indication: tobacco use..high cholesterol.HTN Patient Location: Outpatient Stress Tech: Carmelita Frias NM Tech:Vania HutchisonJULIANA RT(R)(N) Ht: 5 ft 2 in Wt: 166 lbs Bra Size: 42ddd HR: 68 bpm BP: 151/75 mmHg BSA: 1.77 m2 TID: 1.05 BMI: 30.3 History: tobacco use..high cholesterol.HTN Procedure: Patient received 0.4 mg of intravenous Lexiscan, resting heart rate 68 bpm, resting blood pressure 151/75 mmHg, with Lexiscan maximum heart rate achieved was 100 bpm which is 85 % of the maximum predicted heart rate and blood pressure was 152/77 mmHg. With Lexiscan, patient denied any complaint of chest pain. The patient was not able to lay on her abdomen for prone images. Cardiac Stress and Resting SPECT Images: Cardiac Stress and Resting SPECT images were obtained using technetium 99m Myoview 32.9 mCi stress and 10.93 mCi at rest. The patient could not lie on her abdomen. Therefore, prone stress imaging could not be performed. This may affect the diagnostic interpretation of the study findings. Resting and stress imaging in supine positions demonstrate no evidence of fixed or reversible perfusion defects. Gated imaging demonstrates normal global LV systolic function. LVEF is calculated at 65%. Conclusion: No evidence of fixed or reversible perfusion defects. Gated imaging demonstrates normal global LV systolic function. LVEF is calculated at 65%. Electronically signed by : Jannet Daley MD 10/05/2025 22:24:58
[2025-10-01 13:50] VITALS: BP 151/75; PULSE 66; RESP 14
[2025-10-01] MEDS: SODIUM CHLORIDE 0.9% 10ML SYR (RAD ONLY) 10 ML IV ×2 (14:29)
[2025-10-01] MEDS: ISOTOPE MYOVIEW (PER STUDY) 1 DOSE IV (14:29)
== END 2025-10-01 23:59 | disposition home or self-care (01) ==
LOC: RT 11:09
PROVIDERS: PCP Family Medicine; Visit Provider Internal Medicine
DX: I08.1 Rheumatic disorders of both mitral and tricuspid valves (principal); I11.9 Hypertensive heart disease without heart failure; I49.1 Atrial premature depolarization; I25.10 Atherosclerotic heart disease of native coronary artery without angina pectoris; E78.00 Pure hypercholesterolemia, unspecified; E11.9 Type 2 diabetes mellitus without complications; F17.200 Nicotine dependence, unspecified, uncomplicated
CPT/HCPCS: 78452; 93017; 93018; 93306; A9502; J2785